=== PATIENT | female | born 1940 | race Caucasian/White ===

== ENCOUNTER 2016-04-11 18:41 | Emergency (ER) | payer MEDICARE, MEDICAID ==
[~2016-04-11] VITALS: Ht 165.1 cm; Wt 86.8 kg
[~2016-04-11 18:41] MED LIST: ASPI81TA82 PO; LEVO.1 PO; PARO10TA PO; PRAV10 PO; SOMA250T PO; XANA1TAB6 PO
[2016-04-11 18:44] VITALS: BP 182/86; PULSE 89; RESP 18; TEMP 98.2
[2016-04-11 18:48] VITALS: BP 182/86; PULSE 84; RESP 18; O2SAT 97
--- NOTE | 2016-04-11 18:49 | PD ---
HPI Chief Complaint: Abdominal Pain Time Seen by Provider: 18:49 Travel History International Travel<30 days: No Contact w/Intl Traveler<30days: No Traveled to known affect area: No History of Present Illness HPI 75-year-old female coming in via ambulance with severe right lower quadrant tenderness radiating from the back, and into the right leg. Patient states it's been progressively worsening over the past few weeks. She was seen in [facility], and told she "sprained a muscle". She states they did no CT scan or x-rays. Patient has had nausea and vomiting. She denies diarrhea or constipation. She denies chest pain or shortness of breath. Patient has a history of CHF and pacemaker defibrillator. She does have 1 skin lesion on the anterior right abdomen. She has no history of shingles in the past. She denies fever or chills. She denies urinary symptoms. She has had her appendix and gallbladder removed as well as ovaries. She states the pain is 10 over 10 and burning. She states nothing makes it better, and it seems worse when she moves. She is allergic to codeine. PFSH Past Medical History Heart Rhythm Problems: Yes Cardiac Catheterization: No Cardiovascular Problems: Yes (CHF, PACEMAKER) High Cholesterol: Yes Chest Pain: Yes Congestive Heart Failure: Yes (PT REPORTS) COPD: Yes Diabetes: No Hypertension: Yes Immunizations Current: Yes Thyroid Disease: Yes ?: Not Past Surgical History Body Medical Devices: PACER/DEFIBRILLATOR Coronary Artery Bypass Graft: No Hysterectomy: Yes Pacemaker: Yes (UNK) Social History Alcohol Use: No Tobacco Use: No Substance Use: No Allergies-Medications (Allergen,Severity, Reaction): Coded Allergies: Codeine (Unverified Allergy, Mild, 04/11/16) Toradol (Verified Allergy, Unknown, 04/11/16) Tramadol (Verified Allergy, Unknown, 04/11/16) Reported Meds & Prescriptions Reported Meds & Active Scripts Active Lortab (Hydrocodone-Acetaminophen) 5-325 Mg Tab 1-2 Tab PO Q6H PRN Gabapentin 100 Mg Cap 100 Mg PO TID Reported Pravastatin Sodium (Pravastatin Sod) 10 Mg Tab 1 Tab PO HS Paxil (Paroxetine HCl) 10 Mg Tab 10 PO DAILY Synthroid 100 mcg (Levothyroxine Sodium) 100 Mcg Tab 100 Mcg PO DAILY Soma (Carisoprodol) 250 Mg Tab 250 Mg PO BID Aspir-81 (Aspirin) 81 Mg Tab 81 Mg PO DAILY Xanax 1 mg (Alprazolam) Alprazolam 1 mg Tab 1 Tab PO Q6H PRN Review of Systems Except as stated in HPI: all other systems reviewed are Neg General / Constitutional: No: Fever Eyes: No: Visual changes HENT: No: Headaches Cardiovascular: No: Chest Pain or Discomfort Respiratory: No: Shortness of Breath Gastrointestinal: No: Abdominal Pain Genitourinary: No: Dysuria Musculoskeletal: No: Pain Skin: No Rash Neurologic: No: Weakness Psychiatric: No: Depression Endocrine: No: Polydipsia Hematologic/Lymphatic: No: Easy Bruising Physical Exam Narrative GENERAL: Patient appears in moderate distress. SKIN: Warm and dry. Normal color. Normal turgor. Patient has 1 circular lesion in the right lower anterior abdomen. No other rash or erythema. HEAD: Atraumatic. Normocephalic. EYES: Pupils equal and round. No scleral icterus. No injection or drainage. ENT: No nasal bleeding or discharge. Mucous membranes pink and moist. Pharynx is normal. NECK: Trachea midline. No JVD. CARDIOVASCULAR: Regular rate and rhythm. No murmurs gallops or rubs appreciated. RESPIRATORY: No accessory muscle use. Clear to auscultation. Breath sounds equal bilaterally. GASTROINTESTINAL: Abdomen soft, diffusely tender in the right lower quadrant, nondistended. No obvious point tenderness or rebound. Negative psoas sign. Hepatic and splenic margins not palpable. MUSCULOSKELETAL: Extremities without clubbing, cyanosis, or edema. No obvious deformities. Question straight leg raise pain on the right at 40. No weakness. No deformity. Patient has tenderness with palpation to the right lower flank along the pelvic rim. No bony tenderness appreciated. NEUROLOGICAL: Awake and alert. No obvious cranial nerve deficits. Motor grossly within normal limits. Five out of 5 muscle strength in the arms and legs. Normal speech. PSYCHIATRIC: Appropriate mood and affect; insight and judgment normal. Data Data Last Documented VS Vital Signs Date Time Temp Pulse Resp B/P Pulse Ox O2 Delivery O2 Flow Rate FiO2 04/11/16 21:11 88 18 193/88 97 Room Air 04/11/16 18:44 98.2 Orders Complete Blood Count With Diff (04/11/16 18:47) Comprehensive Metabolic Panel (04/11/16 18:47) Lactic Acid (04/11/16 18:47) Urinalysis - C+S If Indicated (04/11/16 18:47) Ct Abd/Pel W Iv Contrast(Rout) (04/11/16 18:47) Iv Access Insert/Monitor (04/11/16 18:47) Ecg Monitoring (04/11/16 18:47) Oximetry (04/11/16 18:47) NPO (04/11/16 18:47) Morphine Inj (Morphine Inj) (04/11/16 19:00) Sodium Chloride 0.9% Flush (Ns Flush) (04/11/16 19:00) Sodium Chlorid 0.9% 500 Ml Inj (Ns 500 M (04/11/16 19:00) Electrocardiogram (04/11/16 ) Oral Contrast - Adult (04/11/16 18:53) Diatrizoate Liq ( Gastroview Liq) (04/11/16 19:50) Diatrizoate Liq ( Gastroview Liq) (04/11/16 19:53) Hydromorphone Pf Inj (Dilaudid Pf Inj) (04/11/16 21:00) Iohexol 350 Inj (Omnipaque 350 Inj) (04/11/16 22:00) Labs Laboratory Tests Test 04/11/16 04/11/16 04/11/16 18:58 19:06 19:46 White Blood Count 9.7 TH/MM3 Red Blood Count 4.96 MIL/MM3 Hemoglobin 14.9 GM/DL Hematocrit 44.4 % Mean Corpuscular Volume 89.5 FL Mean Corpuscular Hemoglobin 30.0 PG Mean Corpuscular Hemoglobin 33.5 % Concent Red Cell Distribution Width 13.7 % Platelet Count 308 TH/MM3 Mean Platelet Volume 8.4 FL Neutrophils (%) (Auto) 51.7 % Lymphocytes (%) (Auto) 37.4 % Monocytes (%) (Auto) 7.1 % Eosinophils (%) (Auto) 3.1 % Basophils (%) (Auto) 0.7 % Neutrophils # (Auto) 5.0 TH/MM3 Lymphocytes # (Auto) 3.6 TH/MM3 Monocytes # (Auto) 0.7 TH/MM3 Eosinophils # (Auto) 0.3 TH/MM3 Basophils # (Auto) 0.1 TH/MM3 CBC Comment DIFF FINAL Differential Comment Sodium Level 139 MEQ/L Potassium Level 3.7 MEQ/L Chloride Level 103 MEQ/L Carbon Dioxide Level 28.2 MEQ/L Anion Gap 8 MEQ/L Blood Urea Nitrogen 13 MG/DL Creatinine 0.86 MG/DL Estimat Glomerular Filtration 64 ML/MIN Rate Random Glucose 81 MG/DL Calcium Level 8.7 MG/DL Total Bilirubin 0.3 MG/DL Aspartate Amino Transf 9 U/L (AST/SGOT) Alanine Aminotransferase 15 U/L (ALT/SGPT) Alkaline Phosphatase 78 U/L Total Protein 7.7 GM/DL Albumin 4.0 GM/DL Lactic Acid Level 0.5 mmol/L Urine Color LIGHT-YELLOW Urine Turbidity CLEAR Urine pH 5.5 Urine Specific [place] 1.007 Urine Protein NEG mg/dL Urine Glucose (UA) NEG mg/dL Urine Ketones NEG mg/dL Urine Occult Blood TRACE Urine Nitrite NEG Urine Bilirubin NEG Urine Urobilinogen LESS THAN 2.0 MG/DL Urine Leukocyte Esterase NEG Urine RBC 1 /hpf Urine WBC LESS THAN 1 /hpf Urine Squamous Epithelial <1 /hpf Cells Urine Mucus FEW /lpf Microscopic Urinalysis Comment CULT NOT INDICATED MDM Medical Decision Making Medical Screen Exam Complete: Yes Emergency Medical Condition: Yes Differential Diagnosis Right lower abdomen abdominal pain. Possible shingles. Possible postherpetic neuralgia. Possible sciatica. Possible urinary tract infection. Narrative Course Patient is uncomfortable medically stable at time of exam. Labs ordered including CBC, CMP, lactic acid, urinalysis. Patient is given 4 mg morphine IV as well as 500 mL normal saline bolus. EKG is ordered. Patient is made nothing by mouth and CT abdomen and pelvis ordered with oral and IV contrast. CBC is unremarkable. CMP is unremarkable. Lactic acid is normal. Urinalysis is unremarkable. 2049 hrs. patient is reevaluated states her pain is improved from a 10 to a 6.5. Patient is still awaiting CT of the abdomen and pelvis. Order for Dilaudid [address] is negative for acute process of the abdomen per radiologist. I feel the patient is suffering from postherpetic neuralgia from probable shingles. Patient will be started on gabapentin 100 mg 3 times a day. Patient is given Lortab 5/325 one to 2 tabs every 6 hours when necessary pain # 20. Patient should follow-up with her primary care physician to ensure improvement. Patient may return to emergency department if worsening symptoms develop as needed. Diagnosis Primary Impression: Right flank tenderness Additional Impression: Neuralgia, postherpetic Referrals: Primary Care Physician Patient Instructions: General Instructions, Shingles (ED) Additional Instructions: I feel the patient is suffering from postherpetic neuralgia from probable shingles. Patient will be started on gabapentin 100 mg 3 times a day. Patient is given Lortab 5/325 one to 2 tabs every 6 hours when necessary pain # 20. Patient should follow-up with her primary care physician to ensure improvement. Patient may return to emergency department if worsening symptoms develop as needed. Med/Other Pt SpecificInfo: Prescription(s) given Scripts Hydrocodone-Acetaminophen (Lortab)5-325 Mg Tab1-2 Tab PO Q6H PRN (PAIN) #20 TAB Ref 0 Prov:Miguelito Staton MD 04/11/16 Gabapentin 100 Mg [id number] Mg PO TID #90 CAP Ref 0 Prov:Miguelito Staton MD 04/11/16 Disposition: 01 DISCHARGE HOME Condition: Stable Jose Everett Apr 11, 2016 18:49
[2016-04-11 18:53] VITALS: O2SAT 99
[2016-04-11] MEDS ORDERED: SODIUM CHLORID 0.9% 500 ML INJ 500 ML IV ONE (19:00)
[2016-04-11] MEDS ORDERED: MORPHINE SULFATE 4 MG/ML INJ IV PUSH ONE (19:00)
[2016-04-11] MEDS ORDERED: SODIUM CHLORIDE 0.9% FLUSH 5 ML FLUSH IVF PRN (19:00)
[2016-04-11 19:44] LABS: BASOPHIL # 0.1 TH/MM3 (0-0.2); BASOPHIL % 0.7 % (0.0-2.0); EOSINOPHIL # 0.3 TH/MM3 (0-0.4); EOSINOPHIL % 3.1 % (0.0-4.0); HEMATOCRIT 44.4 % (35.0-46.0); HEMO FLAGS DIFF FINAL; LYMPH % 37.4 % (9.0-44.0); LYMPHOCYTE # 3.6 TH/MM3 (1.0-4.8); MEAN CELL VOLUME 89.5 FL (80.0-100.0); MEAN CORPUSCULAR HGB CONC 33.5 % (32.0-36.0); MONO % 7.1 % (0.0-8.0); NEUT % 51.7 % (16.0-70.0); PLATELET COUNT 308 TH/MM3 (150-450); RED BLOOD COUNT 4.96 MIL/MM3 (4.00-5.30); RED CELL DISTRIBUTION WIDTH 13.7 % (11.6-17.2); WHITE BLOOD COUNT 9.7 TH/MM3 (4.0-11.0)
[2016-04-11 19:47] LABS: ANION GAP 8 MEQ/L (5-15); AST (GOT) 9 U/L (15-37); BICARBONATE 28.2 MEQ/L (21.0-32.0); BLOOD UREA NITROGEN 13 MG/DL (7-18); CHLORIDE 103 MEQ/L (98-107); GLOMERULAR FILTRATION RATE 64 ML/MIN (>89); POTASSIUM 3.7 MEQ/L (3.5-5.1); SODIUM (NA) 139 MEQ/L (136-145)
[2016-04-11 19:50] LABS: ALKALINE PHOSPHATASE 78 U/L (45-117); ALT (GPT) 15 U/L (10-53); TOTAL BILIRUBIN ADULT 0.3 MG/DL (0.2-1.0)
[2016-04-11] MEDS ORDERED: DIATRIZOATE MEGLUM/DIATRIZOATE SOD 9 ML CUP ONE ×2 (19:50→19:53)
[2016-04-11 20:39] LABS: BLOOD, URINE TRACE (NEG); COMMENT (UR) CULT NOT INDICATED; CULTURE IF INDICATED CULT NOT INDICATED; GLUCOSE,URINE NEG (NEG); KETONE, URINE NEG (NEG); MUCUS URINE FEW /lpf (OCC); NITRITE,URINE NEG (NEG); PH, URINE 5.5 (5.0-8.5); SQUAMOUS EPITHELIAL CELL URINE <1 /hpf (0-5); URINE COLOR LIGHT-YELLOW (YELLW/STRAW)
[2016-04-11] MEDS ORDERED: HYDROmorphone HCL PF 1 MG/ML VIAL IV PUSH ONE (21:00)
[2016-04-11 21:11] VITALS: BP 193/88; PULSE 88; RESP 18; O2SAT 97
[2016-04-11] MEDS ORDERED: IOHEXOL 350 MG/ML 10 ML VIAL (for RAD DIAG) IV ONE (22:00)
--- NOTE | 2016-04-11 22:19 | RADRPT ---
EXAM DATE/TIME: 04/11/2016 21:52 [facility] COMPARISON: No previous studies available for comparison. INDICATIONS: Abdominal and right groin pain. IV CONTRAST: 100 cc Omnipaque 350 (iohexol) IV ORAL CONTRAST: Partial prescribed oral contrast ingested. RADIATION DOSE: 16.05 CTDIvol (mGy) MEDICAL HISTORY: Cardiovascular disease. Hypertension. SURGICAL HISTORY: Hysterectomy. ENCOUNTER: Initial ACUITY: 1 month PAIN SCALE: 4/10 LOCATION: Right lower quadrant TECHNIQUE: Volumetric scanning of the abdomen and pelvis was performed. Using automated exposure control and ad justment of the mA and/or kV according to patient size, radiation dose was kept as low as reasonably achievable to obtain optimal diagnostic quality images. FINDINGS: The liver, spleen, pancreas, adrenal glands and kidneys appear grossly normal. The ureters appear fr ee of stones. There is some scattered atherosclerotic calcifications seen throughout the arterial system. No aneur ysm is seen. The gallbladder is unremarkable. There are colonic diverticula in the sigmoid region. Significant associated inflammatory change is not seen. Pelvic structures appear grossly intact. The patient appears to be status post hysterectomy. The patient has a biventricular pacemaker in place. The lung bases are clear. There is degenerative change throughout the lumbar spine. CONCLUSION: 1. No acute abnormality seen. 2. Sigmoid colon diverticula. 3. Degenerative change in the lumbar spine. Slade Spencer MD on April 11, 2016 at 22:11 Board Certified Radiologist. This report was verified electronically.
[2016-04-11] MEDS ORDERED: HYDR-3533 PO (22:29)
[2016-04-11] MEDS ORDERED: GABA100C4 PO (22:29)
--- NOTE | 2016-04-12 15:56 | EKG ---
Date Performed: 04/11/2016 Time Performed: 19:16:41 PTAGE: 75 years EKG: ELECTRONIC VENTRICULAR PACEMAKE Compared to prior tracing no significant change ABNORMAL [facility] ECG PREVIOUS TRACING : 12/31/2015 10.54 DOCTOR: Hitesh Cronin Interpretating Date/Time 04/12/2016 15:54:21
== END 2016-04-11 22:47 | disposition home or self-care (01) ==
LOC: NEPE 18:41
DX: B02.29 Other postherpetic nervous system involvement (principal); I10 Essential (primary) hypertension; I50.9 Heart failure, unspecified
CPT/HCPCS: 74177; 80053; 81001; 83605; 85025; 93005; 96361; 96374; 96375; 99284; J1170; J2270; J7040; Q9963; Q9967

== ENCOUNTER 2016-04-25 17:43 | Emergency (ER) | payer MEDICARE, MEDICAID ==
[~2016-04-25 17:43] MED LIST changes: +GABA100C4 PO; +HYDR-3533 PO
[2016-04-25 17:50] VITALS: BP 135/84; PULSE 103; RESP 14; TEMP 97.9; O2SAT 97
== END 2016-04-25 19:40 | disposition left against medical advice (07) ==
LOC: NED 17:43
DX: R10.31 Right lower quadrant pain (principal)
CPT/HCPCS: 99281

== ENCOUNTER 2016-07-19 13:34 | Inpatient (IN) | payer MEDICARE ==
[~2016-07-19] VITALS: Ht 165.1 cm; Wt 83.2 kg
[2016-07-19 13:49] VITALS: BP 125/81; PULSE 112; RESP 18; TEMP 97.4; O2SAT 96
[2016-07-19] MEDS ORDERED: PRAV10TA PO (14:05)
[2016-07-19] MEDS ORDERED: PAXI10TA2 PO (14:05)
--- NOTE | 2016-07-19 14:28 | PD ---
HPI Chief Complaint: Pain: Acute or Chronic Time Seen by Provider: 14:28 Travel History International Travel<30 days: No Contact w/Intl Traveler<30days: No Traveled to known affect area: No History of Present Illness HPI 75-year-old female with PMH of CHF, HTN, HLD, pacer/defibrillator presents to the ED for evaluation of weeks long history of 10/10 right knee pain. She endorses fever "around 101," cough occasionally productive of yellow sputum and nausea and vomiting x 24 hours on presentation. She denies chest pain, shortness of breath, palpitations, abdominal pain, dysuria, back pain. Patient can identify no acute injury to the knee. She states that she was hospitalized at [facility] in June due to "a bad infection in my leg." She states that she was discharged from the hospital 06/21. She states that she was in a rehab for 1 day before signing out AMA. She states that since this time she has been unable to ambulate, sitting on her walker and using her leg to push herself around her house. She has not seen her primary care since discharge. PFSH Past Medical History Heart Rhythm Problems: Yes Cardiac Catheterization: No Cardiovascular Problems: Yes High Cholesterol: Yes Chest Pain: Yes Congestive Heart Failure: Yes COPD: Yes Diabetes: No Diminished Hearing: No Hypertension: Yes Immunizations Current: Yes Thyroid Disease: Yes Tetanus Vaccination: < 5 Years Influenza Vaccination: Yes : 7 Para: 7 Miscarriage: 0 : 0 Past Surgical History Body Medical Devices: PACER/DEFIBRILLATOR Coronary Artery Bypass Graft: No Hysterectomy: Yes Pacemaker: Yes (AICD PACER) Social History Alcohol Use: No Tobacco Use: No Substance Use: No Allergies-Medications (Allergen,Severity, Reaction): Coded Allergies: Codeine (Unverified Allergy, Mild, 07/19/16) Toradol (Verified Allergy, Unknown, 07/19/16) Tramadol (Verified Allergy, Unknown, 07/19/16) Reported Meds & Prescriptions Reported Meds & Active Scripts Active Reported Pravastatin 10 Mg Tab 10 Mg PO DAILY Paxil (Paroxetine HCl) 10 Mg Tab 10 Mg PO DAILY Review of Systems Except as stated in HPI: all other systems reviewed are Neg Physical Exam Narrative GENERAL: Well-nourished, well-developed obese white female in no acute distress. SKIN: Focused skin assessment warm/dry. HEAD: Normocephalic. EYES: No scleral icterus. No injection or drainage. NECK: Supple, trachea midline. No JVD or lymphadenopathy. CARDIOVASCULAR: Regular rate and rhythm without murmurs, gallops, or rubs. 2+ DP and radial pulses bilaterally. RESPIRATORY: Breath sounds clear and equal bilaterally. No accessory muscle use. GASTROINTESTINAL: Abdomen soft, non-tender, nondistended. No hepatosplenomegaly. No suprapubic tenderness. Active bowel sounds. MUSCULOSKELETAL: No cyanosis, or edema. FOCUSED RIGHT LOWER EXTREMITY EXAM: TTP of the right anterior knee and joint lines. No warmth, edema, erythema noted. ROM testing deferred 2/2 pain. Patient is able to flex and extend the ankle and toes. Sensation intact to light touch distally. Cap refill less than 2 seconds. BACK: Nontender without obvious deformity. No CVA tenderness. Data Data Last Documented VS Vital Signs Date Time Temp Pulse Resp B/P Pulse Ox O2 Delivery O2 Flow Rate FiO2 07/19/16 15:29 20 07/19/16 13:49 97.4 112 125/81 96 Orders Complete Blood Count With Diff (07/19/16 14:40) Comprehensive Metabolic Panel (07/19/16 14:40) Urinalysis - C+S If Indicated (07/19/16 14:40) Iv Access Insert/Monitor (07/19/16 14:40) Ecg Monitoring (07/19/16 14:40) Oximetry (07/19/16 14:40) Sodium Chlor 0.9% 1000 Ml Inj (Ns 1000 M (07/19/16 14:40) Sodium Chloride 0.9% Flush (Ns Flush) (07/19/16 14:45) Morphine Inj (Morphine Inj) (07/19/16 14:45) C-Reactive Protein (Crp) (07/19/16 14:40) Westergren Sedimentation Rate (07/19/16 14:40) Knee, Ltd (1 Or 2vws) (07/19/16 14:40) Ice/Cold Pack (07/19/16 14:40) Ondansetron Inj (Zofran Inj) (07/19/16 14:51) Urinary Catheter Insert/Apply (07/19/16 14:55) Ondansetron Inj (Zofran Inj) (07/19/16 15:30) Chest, Single Ap (07/19/16 ) Blood Culture (07/19/16 16:23) Vancomycin Inj (Vancomycin Inj) (07/19/16 16:23) Piperacil-Tazo 4.5 Gm Premix (Zosyn 4.5 (07/19/16 16:23) Sodium Chlor 0.9% 1000 Ml Inj (Ns 1000 M (07/19/16 16:30) Lactic Acid (07/19/16 16:27) Us Abdomen Gallbladder (07/19/16 16:55) Admit Order (Ed Use Only) (07/19/16 17:04) Labs Laboratory Tests Test 07/19/16 15:02 White Blood Count 12.7 TH/MM3 Red Blood Count 4.39 MIL/MM3 Hemoglobin 12.5 GM/DL Hematocrit 38.0 % Mean Corpuscular Volume 86.6 FL Mean Corpuscular Hemoglobin 28.5 PG Mean Corpuscular Hemoglobin 32.9 % Concent Red Cell Distribution Width 14.5 % Platelet Count 373 TH/MM3 Mean Platelet Volume 7.5 FL Neutrophils (%) (Auto) 75.5 % Lymphocytes (%) (Auto) 14.0 % Monocytes (%) (Auto) 8.5 % Eosinophils (%) (Auto) 1.4 % Basophils (%) (Auto) 0.6 % Neutrophils # (Auto) 9.6 TH/MM3 Lymphocytes # (Auto) 1.8 TH/MM3 Monocytes # (Auto) 1.1 TH/MM3 Eosinophils # (Auto) 0.2 TH/MM3 Basophils # (Auto) 0.1 TH/MM3 CBC Comment AUTO DIFF Differential Comment AUTO DIFF CONFIRMED Platelet Estimate NORMAL Platelet Morphology Comment NORMAL Erythrocyte Sedimentation Rate 14 mm/hr Urine Color DARK-YELLOW Urine Turbidity CLEAR Urine pH 6.0 Urine Specific [place] 1.021 Urine Protein 30 mg/dL Urine Glucose (UA) NEG mg/dL Urine Ketones NEG mg/dL Urine Occult Blood LARGE Urine Nitrite NEG Urine Bilirubin SMALL Urine Urobilinogen 4.0 MG/DL Urine Leukocyte Esterase NEG Urine RBC 6 /hpf Urine WBC 1 /hpf Urine Squamous Epithelial 2 /hpf Cells Urine Bacteria FEW /hpf Urine Mucus FEW /lpf Microscopic Urinalysis Comment CULT NOT INDICATED Sodium Level 133 MEQ/L Potassium Level 3.6 MEQ/L Chloride Level 94 MEQ/L Carbon Dioxide Level 30.5 MEQ/L Anion Gap 9 MEQ/L Blood Urea Nitrogen 13 MG/DL Creatinine 0.65 MG/DL Random Glucose 128 MG/DL Calcium Level 9.9 MG/DL Total Bilirubin 0.8 MG/DL Aspartate Amino Transf 60 U/L (AST/SGOT) Alanine Aminotransferase 59 U/L (ALT/SGPT) Alkaline Phosphatase 306 U/L C-Reactive Protein 30.30 MG/DL Total Protein 8.0 GM/DL Albumin 2.3 GM/DL [facility] Medical Decision Making Medical Screen Exam Complete: Yes Emergency Medical Condition: Yes Differential Diagnosis Osteoarthritis versus bursitis versus septic arthritis versus DVT versus UTI versus PNA versus cholecystitis versus cholangitis versus other Narrative Course 75-year-old female with PMH of CHF, HTN, HLD, pacer/defibrillator presents to the ED for evaluation of weeks long history of 10/10 right knee pain. She endorses fever "around 101" and nausea and vomiting on presentation. She denies chest pain, shortness of breath, abdominal pain, dysuria, back pain. Patient can identify no acute injury to the knee. She states that she was hospitalized at [facility] in June due to "a bad infection in my leg" and discharged 06/21. She states that she was in a rehab for 1 day before signing out AMA. She states that since this time she has been unable to ambulate, sitting on her walker and using her leg to push herself around her house. She has not followed up with her PCP Dr. Vicente. Vitals reviewed. Pulse 112 on presentation. Physical exam reveals a nontoxic appearing white female in no acute distress. Chest CTAB. No appreciable M/R/G. Right knee exquisitely TTP. No edema, erythema or warmth noted. ROM testing deferred 2/2 pain. Good distal pulses, neurovascularly intact. IV was established. Patient was administered 1 L normal saline bolus, 5 mg morphine, 4 mg Zofran IV. CBC: WBC 12.7 CMP: AST 60, ALT 59, Alk Phos 306. Review of patients record reveals no previous elevation. CRP: 30.30 ESR: 14 UA: No culture indicated Chest x-ray: pending RIGHT Knee x-ray: Severe OA. Small effusion without fracture per radiology read. On recheck patient reports improvement of N/V and knee pain. Records were requested from the outside hospital 2. Patient meets SIRS criteria. Blood cultures ordered. RUQ US, IV vancomycin and Zosyn and additional fluid bolus ordered. I spoke with Dr. Browning who agrees to accept the patient to the medicine service with Dr. Robledo. Please see medicine notes for disposition. Sepsis Criteria SIRS Criteria (2 or more): Heart rate over 90, WBC > 46326, < 4000 or > 10% bands Criteria Outcome: Meets SIRS criteria Marissa Chi July 19, 2016 14:28
[2016-07-19] MEDS ORDERED: SODIUM CHLOR 0.9% 1000 ML INJ 1,000 ML IV SCH (14:40)
[2016-07-19] MEDS ORDERED: SODIUM CHLORIDE 0.9% FLUSH 10 ML FLUSH IV FLUSH PRN ×2 (14:45→18:15)
[2016-07-19] MEDS ORDERED: MORPHINE SULFATE 8 MG/ML INJ IV PUSH ONE (14:45)
[2016-07-19] MEDS ORDERED: ONDANSETRON HCL 4 MG/2 ML VIAL ONE (14:51)
[2016-07-19 15:27] LABS: AUTOMATED NEUTROPHIL # 9.6 TH/MM3 (1.8-7.7); BASOPHIL # 0.1 TH/MM3 (0-0.2); BASOPHIL % 0.6 % (0.0-2.0); EOSINOPHIL # 0.2 TH/MM3 (0-0.4); EOSINOPHIL % 1.4 % (0.0-4.0); LYMPHOCYTE # 1.8 TH/MM3 (1.0-4.8); MEAN CELL VOLUME 86.6 FL (80.0-100.0); MEAN CORPUSCULAR HEMOGLOBIN 28.5 PG (27.0-34.0); MEAN CORPUSCULAR HGB CONC 32.9 % (32.0-36.0); MONO % 8.5 % (0.0-8.0); NEUT % 75.5 % (16.0-70.0); PLATELET COUNT 373 TH/MM3 (150-450); RED BLOOD COUNT 4.39 MIL/MM3 (4.00-5.30); RED CELL DISTRIBUTION WIDTH 14.5 % (11.6-17.2); WHITE BLOOD COUNT 12.7 TH/MM3 (4.0-11.0)
[2016-07-19 15:30] LABS: HEMO FLAGS AUTO DIFF
[2016-07-19] MEDS ORDERED: ONDANSETRON HCL 4 MG/2 ML VIAL IV PUSH ONE (15:30)
[2016-07-19 15:40] LABS: BACTERIA, URINE FEW /hpf; BLOOD, URINE LARGE (NEG); COMMENT (UR) CULT NOT INDICATED; CULTURE IF INDICATED CULT NOT INDICATED; GLUCOSE,URINE NEG (NEG); KETONE, URINE NEG (NEG); MUCUS URINE FEW /lpf (OCC); NITRITE,URINE NEG (NEG); SQUAMOUS EPITHELIAL CELL URINE 2 /hpf (0-5); URINE COLOR DARK-YELLOW (YELLW/STRAW)
[2016-07-19 15:46] LABS: ALT (GPT) 59 U/L (10-53); ANION GAP 9 MEQ/L (5-15); AST (GOT) 60 U/L (15-37); BICARBONATE 30.5 MEQ/L (21.0-32.0); BLOOD UREA NITROGEN 13 MG/DL (7-18); CHLORIDE 94 MEQ/L (98-107); POTASSIUM 3.6 MEQ/L (3.5-5.1); SODIUM (NA) 133 MEQ/L (136-145)
--- NOTE | 2016-07-19 15:52 | RADRPT ---
EXAM DATE/TIME: 07/19/2016 15:28 [facility] COMPARISON: No previous studies available for comparison. INDICATIONS : Right knee pain, cellulitis staph infection. MEDICAL HISTORY : Cardiovascular disease. Hypertension. SURGICAL HISTORY : None. ENCOUNTER: Subsequent ACUITY: 1 month PAIN SCORE: 10/10 LOCATION: Right knee. FINDINGS: Two view examination of the right knee demonstrates severe osteoarthritis. Small effusion. Soft tissu e swelling. Bony mineralization is normal. The suprapatellar soft tissues have a normal configurati on. CONCLUSION: Severe osteoarthritis. Small effusion without fracture. Demarcus Hanley MD on July 19, 2016 at 15:50 Board Certified Radiologist. This report was verified electronically.
[2016-07-19 15:53] LABS: ALKALINE PHOSPHATASE 306 U/L (45-117); TOTAL BILIRUBIN ADULT 0.8 MG/DL (0.2-1.0)
[2016-07-19 16:00] VITALS: BP 148/73; PULSE 100; RESP 20; O2SAT 98
[2016-07-19] MEDS ORDERED: PIPERACIL-TAZO 4.5 GM PREMIX 100 ML IV STA (16:23)
[2016-07-19] MEDS ORDERED: VANCOMYCIN INJ 1,000 MG in SODIUM CHLOR 0.9% 250 ML INJ 250 ML IV STA (16:23)
[2016-07-19 16:24] LABS: PLATELET ESTIMATE SMEAR NORMAL (NORMAL); PLATELET MORPHOLOGY NORMAL (NORMAL); SCAN/DIFF AUTO DIFF CONFIRMED
[2016-07-19] MEDS ORDERED: SODIUM CHLOR 0.9% 1000 ML INJ 1,000 ML IV ONE (16:30)
--- NOTE | 2016-07-19 17:00 | RADRPT ---
EXAM DATE/TIME: 07/19/2016 16:35 [facility] COMPARISON: CHEST SINGLE AP, December 31, 2015, 1:45. INDICATIONS : Chest and back pain after fall. MEDICAL HISTORY : Cardiovascular disease. Hypertension. SURGICAL HISTORY : Hysterectomy. Pacemaker. ENCOUNTER: Initial ACUITY: 1 day PAIN SCORE: 10/10 LOCATION: Bilateral chest FINDINGS: A single view of the chest demonstrates the lungs to be symmetrically aerated without evidence of mas s, infiltrate or effusion. The cardiomediastinal contours are unremarkable. Osseous structures are intact. CONCLUSION: No acute disease. AICD appear stable José Miguel Harris MD on July 19, 2016 at 16:57 Board Certified Radiologist. This report was verified electronically.
[2016-07-19] MEDS ORDERED: MORPHINE SULFATE 4 MG/ML INJ IV PUSH ONE (17:15)
--- NOTE | 2016-07-19 17:38 | RADRPT ---
EXAM DATE/TIME: 07/19/2016 17:11 [facility] COMPARISON: No previous studies available for comparison. INDICATIONS : Nausea/vomiting. Elevated labs. MEDICAL HISTORY : Congestive heart failure. Hypercholesterolemia. Thyroid disease. Chest pain. Irregular heartbeat. H TN. COPD. SURGICAL HISTORY : Pacemaker. Hysterectomy. Arthroscopic right knee. ENCOUNTER: Initial ACUITY: 1 month PAIN SCORE: 10/10 LOCATION: Right upper quadrant MEASUREMENTS: LIVER: 16.5 cm length COMMON DUCT: 4 mm RIGHT KIDNEY: 10.2 x 4.9 x 4.9 cm FINDINGS: The liver is echogenic without intrahepatic biliary ductal dilatation. Trace free fluid is present. Gallbladder is poorly seen. The common duct is normal. Pancreas obscured by bowel gas. CONCLUSION: Limited exam with trace free fluid. Echogenic liver. No definite gallstones. Carloz Kiser MD FACR on July 19, 2016 at 17:32 Board Certified Radiologist. This report was verified electronically.
[2016-07-19] MEDS ORDERED: NALOXONE HCL 0.4 MG/ML AMP IV PRN (18:15)
[2016-07-19] MEDS ORDERED: SENNOSIDES 8.6 MG TAB PO PRN (18:15)
[2016-07-19] MEDS ORDERED: MAGNESIUM HYDROXIDE SUSP 30 ML CUP PO PRN (18:15)
[2016-07-19] MEDS: SODIUM CHLOR 0.45% 1000 ML INJ 1,000 ML IV SCH (18:45)
[2016-07-19 18:58] VITALS: BP 140/72; PULSE 102; RESP 20; O2SAT 99
--- NOTE | 2016-07-19 18:58 | HHI.PR ---
Objective Objective Results - Vital Signs Date Time Temp Pulse Resp B/P Pulse Ox O2 Delivery O2 Flow Rate FiO2 07/19/16 17:34 20 07/19/16 15:29 20 07/19/16 13:49 97.4 112 18 125/81 96 Result Diagram: 07/19/16 1502 07/19/16 1502 A/P Assessment and Plan [id number]. Tita Esteban July 19, 2016 18:58
--- NOTE | 2016-07-19 19:50 | MH ---
cc: JOSAFAT ROBLEDO DATE OF ADMISSION 07/19/2016 DATE OF 1940 CHIEF COMPLAINT Abdominal pain, nausea and vomiting. Right knee pain. Travel in the last 30 days is none. HISTORY OF PRESENT ILLNESS This is a pleasant 75-year-old obese female with multiple medical comorbidities. She has had a long history of right knee pain and was recently in the [facility] with a possible infection in her right knee. According to the records the patient had her knee drained and there was no infection noted. She does have some mild edema noted around the knee cap, but the knee has no erythema but is sore to move. The patient has also had an onset of abdominal pain with nausea and vomiting for the past 48 hours. She states that she did have fever around 101. She has had some cough with some productive yellow sputum, a decreased appetite and has also been constipated. The patient states that she did have a good bowel movement within the past 24 hours and is now feeling somewhat better. She has no pain on palpation to the abdomen. She just describes it as a general ache. Currently the patient has a tachycardic rhythm, heart rate around 110. Temperature is 97.4. According to the record, the patient was admitted to a rehabilitation facility for debility but states that the workers had a bad attitude therefore, she stayed for one day and signed out against medical advice. The patient has not been ambulating in quite some time. She does use a wheelchair or a walker and push herself around the house. The patient is complaining of generalized aches and low back pain. PAST MEDICAL HISTORY Includes: 1. Heart disease. 2. Cardiovascular disease. 3. Coronary artery disease. 4. Hyperlipidemia. 5. Chest pain. 6. Congestive heart failure. 7. Chronic obstructive pulmonary disease. 8. Hypertension. 9. Osteoarthritis. 10. Thyroid disease. PAST SURGICAL HISTORY Surgical history: 1. Pacemaker, AICD. 2. Hysterectomy. 3. Recent drainage done of her right knee. ALLERGIES CODEINE, TORADOL AND TRAMADOL. SOCIAL HISTORY The patient currently lives with her daughter. She denies ever any alcohol, tobacco or illicit drug use. MEDICATIONS Reported medications: 1. Paxil. 2. Pravastatin. REVIEW OF SYSTEMS Limited due to patient's poor historian. Most of the history information is gathered from the record. The patient was able to give me symptom information such as generalized abdominal pain, nausea, vomiting, possible constipation, right knee pain, low back pain. Otherwise systems are negative or unremarkable. PHYSICAL EXAMINATION VITAL SIGNS: Temperature is 97.4, pulse 112, respiratory rate 20, blood pressure 125/81, O2 saturation 96%. The patient is on 2 liters nasal cannula. GENERAL: Obese, white female, looks to be her stated age, resting on the bed. She does have some facial grimace. Some generalized aches and pains predominantly complaining of her right knee pain. HEENT: Atraumatic, normocephalic. Pupils equal, round, reactive to light and accommodation at 2. Holmen mucous membranes. No scleral icterus. NECK: Supple. CARDIOVASCULAR: S1-S2. No murmurs, rubs, or gallops. She has no edema in her lower extremities. Her pulses are intact. LUNGS: She does have some diminished breath sounds in her lower lobes. Upper carbajal are essentially clear. No rhonchi. No wheezing. ABDOMEN: Round. Soft. Nontender to light palpation. She has active bowel sounds in all of her quadrants. But her abdomen is taut. Possible mild tympany palpated. MUSCULOSKELETAL: Moves her extremities with purpose. She does have generalized weakness. NEUROLOGIC: She is alert and oriented. A poor historian to current situation and time events but she can answer simple symptom management. Her speech is clear. 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 Tongue is midline. PSYCHIATRIC: Increased anxiety secondary to her pain. Appropriate mood, plus the anxiety. LABORATORY DATA Diagnostic data, white blood cell count is 12.7, RBC 4.39, hemoglobin 12.5, hematocrit 38, platelet count 373. Neutrophil percentage auto 75.5, monocyte 8.5. Sodium 133, potassium 3.6, chloride 94, carbon dioxide 30.5, anion gap 9, BUN 13, creatinine 0.65. Random glucose 128. Lactic acid 10. Calcium 9.9. AST 60, ALT 59, alkaline phosphatase 306. C reactive protein 30.3. Total protein 8. Albumin 2.3. Urine is dark yellow, clear. PH is 6.0, specific gravity 1.021, 30 protein, large amount of occult blood. Nitrites are negative. Small amount of bilirubin. Urobilinogen si 4. Leukocyte esterase is negative. Negative glucose or ketones or leukocyte esterase. Culture is not indicated. IMAGING Imaging studies show a chest x-ray to have no acute disease. AICD appears stable. Knee x-ray severe osteoarthritis with small effusion without fracture. Ultrasound of the gallbladder limited examination with trace of free fluid, echogenic liver. No definite gallstones. ASSESSMENT AND PLAN 1. Leukocytosis secondary to unknown cause. 2. Severe osteoarthritis with small effusion of the right knee. 3. Tachycardia. 4. Hyponatremia. 5. Fever, unknown origin. 6. Abdominal pain with nausea and vomiting, rule out cholangitis or cholecystitis. 7. Constipation. 8. Rule out inflammatory response, unknown cause. Currently we will admit the patient to inpatient. Further vital signs q.4h. Maintain her on bed rest. Out of bed only with assistance. General hydration with IV fluids. Deep venous thrombosis prophylaxis with heparin. The patient received Zosyn and vancomycin in the emergency room. We will start her on IV Unasyn. Ultrasound of the abdomen has been obtained. General surgery consultation for his expert opinion. The patient is complaining of pain in her right knee, uncontrolled. We will give her IV pain medications. Sequential compression devices if she can tolerate around her knee. Blood cultures are pending. We will draw a sedimentation rate on this patient in the morning and labs in the morning and re-evaluate her needs. The case has been discussed with Dr. Browning. Admission for Dr. Robledo. We will follow. Dictated by: AUDREY Reynolds Josafat Robledo MD JP/JOSE /6:44 PM /7:07 PM PT EVALUATION WAS DONE ABOVE CHART WAS REVIEWED DW PT DW RN JOHN
[2016-07-19] MEDS: HEPARIN SODIUM - SQ 10,000 UNITS/ML VIAL SQ SCH (20:10)
[2016-07-19] MEDS: HYDROmorphone HCL PF 1 MG/ML VIAL IV PRN ×2 (20:11→23:43)
[2016-07-19] MEDS: ACETAMINOPHEN 325 MG TAB PO PRN (21:34)
[2016-07-19 21:35] VITALS: BP 126/72; PULSE 101; RESP 18; TEMP 97.2; O2SAT 96
[2016-07-19] MEDS: AMPICILLIN-SULBACTAM INJ 1,500 MG in SODIUM CHLORIDE 0.9% INJ 100 ML IV SCH (23:42)
[2016-07-20 00:23] VITALS: BP 128/71; PULSE 95; RESP 17; TEMP 96.9; O2SAT 98
[2016-07-20] MEDS: AMPICILLIN-SULBACTAM INJ 1,500 MG in SODIUM CHLORIDE 0.9% INJ 100 ML IV SCH ×4 (03:59→22:44)
[2016-07-20 04:32] LABS: ANION GAP 9 MEQ/L (5-15); BICARBONATE 25.9 MEQ/L (21.0-32.0); BLOOD UREA NITROGEN 10 MG/DL (7-18); CHLORIDE 101 MEQ/L (98-107); GLOMERULAR FILTRATION RATE 117 ML/MIN (>89); POTASSIUM 3.7 MEQ/L (3.5-5.1); SODIUM (NA) 136 MEQ/L (136-145)
[2016-07-20 04:45] LABS: AUTOMATED NEUTROPHIL # 7.4 TH/MM3 (1.8-7.7); BASOPHIL # 0.1 TH/MM3 (0-0.2); BASOPHIL % 0.8 % (0.0-2.0); EOSINOPHIL # 0.7 TH/MM3 (0-0.4); EOSINOPHIL % 5.6 % (0.0-4.0); HEMATOCRIT 35.2 % (35.0-46.0); LYMPH % 23.5 % (9.0-44.0); LYMPHOCYTE # 2.8 TH/MM3 (1.0-4.8); MEAN CELL VOLUME 87.8 FL (80.0-100.0); MEAN CORPUSCULAR HGB CONC 31.9 % (32.0-36.0); MONO % 7.3 % (0.0-8.0); NEUT % 62.8 % (16.0-70.0); PLATELET COUNT 313 TH/MM3 (150-450); RED CELL DISTRIBUTION WIDTH 14.6 % (11.6-17.2); WHITE BLOOD COUNT 11.8 TH/MM3 (4.0-11.0)
[2016-07-20 04:46] LABS: HEMO FLAGS AUTO DIFF
[2016-07-20] MEDS: HYDROmorphone HCL PF 1 MG/ML VIAL IV PRN ×5 (05:41→22:44)
[2016-07-20 06:01] LABS: PLATELET ESTIMATE SMEAR NORMAL (NORMAL); PLATELET MORPHOLOGY NORMAL (NORMAL); SCAN/DIFF AUTO DIFF CONFIRMED
[2016-07-20 08:00] VITALS: BP 142/77; PULSE 107; RESP 17; TEMP 97.2; O2SAT 95
[2016-07-20 09:53] LABS: ALKALINE PHOSPHATASE 254 U/L (45-117); ALT (GPT) 49 U/L (10-53); AST (GOT) 45 U/L (15-37); TOTAL BILIRUBIN ADULT 0.6 MG/DL (0.2-1.0)
[2016-07-20] MEDS: SODIUM CHLOR 0.45% 1000 ML INJ 1,000 ML IV SCH ×2 (09:54→22:45)
[2016-07-20] MEDS: HEPARIN SODIUM - SQ 10,000 UNITS/ML VIAL SQ SCH ×2 (09:55→20:43)
--- NOTE | 2016-07-20 10:38 | HHI.PR ---
Subjective Subjective Notes C/o abdominal pain Thirsty Objective Vitals/I&O Vital Signs Date Time Temp Pulse Resp B/P Pulse Ox O2 Delivery O2 Flow Rate FiO2 07/20/16 08:00 97.2 107 17 142/77 95 07/19/16 18:58 Nasal Cannula 2 Labs Laboratory Tests Test 07/19/16 07/19/16 07/20/16 15:02 17:00 04:00 White Blood Count 12.7 11.8 Red Blood Count 4.39 4.00 Hemoglobin 12.5 11.2 Hematocrit 38.0 35.2 Mean Corpuscular Volume 86.6 87.8 Mean Corpuscular Hemoglobin 28.5 28.0 Mean Corpuscular Hemoglobin 32.9 31.9 Concent Red Cell Distribution Width 14.5 14.6 Platelet Count 373 313 Mean Platelet Volume 7.5 7.5 Neutrophils (%) (Auto) 75.5 62.8 Lymphocytes (%) (Auto) 14.0 23.5 Monocytes (%) (Auto) 8.5 7.3 Eosinophils (%) (Auto) 1.4 5.6 Basophils (%) (Auto) 0.6 0.8 Neutrophils # (Auto) 9.6 7.4 Lymphocytes # (Auto) 1.8 2.8 Monocytes # (Auto) 1.1 0.9 Eosinophils # (Auto) 0.2 0.7 Basophils # (Auto) 0.1 0.1 CBC Comment AUTO DIFF AUTO DIFF Differential Comment AUTO DIFF AUTO DIFF CONFIRMED CONFIRMED Platelet Estimate NORMAL NORMAL Platelet Morphology Comment NORMAL NORMAL Erythrocyte Sedimentation Rate 14 Urine Color DARK-YELLOW Urine Turbidity CLEAR Urine pH 6.0 Urine Specific [place] 1.021 Urine Protein 30 Urine Glucose (UA) NEG Urine Ketones NEG Urine Occult Blood LARGE Urine Nitrite NEG Urine Bilirubin SMALL Urine Urobilinogen 4.0 Urine Leukocyte Esterase NEG Urine RBC 6 Urine WBC 1 Urine Squamous Epithelial 2 Cells Urine Bacteria FEW Urine Mucus FEW Microscopic Urinalysis Comment CULT NOT INDICATED Sodium Level 133 136 Potassium Level 3.6 3.7 Chloride Level 94 101 Carbon Dioxide Level 30.5 25.9 Anion Gap 9 9 Blood Urea Nitrogen 13 10 Creatinine 0.65 0.51 Random Glucose 128 93 Calcium Level 9.9 9.0 Total Bilirubin 0.8 0.6 Aspartate Amino Transf 60 45 (AST/SGOT) Alanine Aminotransferase 59 49 (ALT/SGPT) Alkaline Phosphatase 306 254 C-Reactive Protein 30.30 Total Protein 8.0 7.0 Albumin 2.3 1.8 Lactic Acid Level 1.0 Estimat Glomerular Filtration 117 Rate Date/Time Procedure Status Source Growth 07/19/16 17:00 Aerobic Blood Culture Received Blood Line Pending 07/19/16 17:00 Anaerobic Blood Culture Received Blood Line Pending Cardiovascular: Regular Lungs: Clear Abdomen: Other (RUQ pain with palpation; abdomen soft ) Extremities: No edema A/P Assessment and Plan 75 year old female with acute cholecystitis -Obtain Cardiology clearance for surgery -Clear liquids -Antibiotics -Will plan timing of surgery after Cardiology evaluation Attending Statement patient seen at bedside cardio clearance for possible surgery vs callie tube Attestation The exam, history, and the medical decision-making described in the above note were completed with the assistance of the mid-level provider. I reviewed and agree with the findings presented. I attest that I had a [id number] encounter with the patient on the same day, and personally performed and documented my assessment and findings in the medical record. Cecily Dietz July 20, 2016 10:38 Sherif Mancuso MD July 31, 2016 22:04
--- NOTE | 2016-07-20 11:58 | MB ---
cc: CODIE HOLBROOK MD DATE OF CONSULTATION 07/19/2016 REASON FOR CONSULTATION Acute cholecystitis HISTORY OF PRESENT ILLNESS The patient is a 75-year-old female who presents with multiple medical co-morbidities. Actually presented initially with right knee pain and a history of aspiration of her right knee at [facility]. She complains of significant pain at multiple other places in the body one of which significantly in her right upper quadrant. She states the pain is of acute onset occurring in the last two days. She also had associated multiple episodes of nausea and vomiting. She states she had a fever T-max of 101 and describes the pain as sharp, somewhat diffuse, better with lying still, worse with movement, worse with palpation. She came to the emergency department for further evaluation including gallbladder ultrasound showing trace gallbladder fluid no definitive stones. She did have elevated total bilirubin of 0.8, AST 60, ALT of 59 and alkaline phosphatase of 306. Surgery was consulted for further evaluation. On my exam, the patient states she does have pain somewhat all over including her knee, but complains of more significant pain in her right upper quadrant again of acute onset of 48 hours duration. She never had pain quite like this before. She states the pain has been persistent and continues to get worse. She does have some improvement with pain medications. She complains of fevers and chills which have improved. PAST MEDICAL HISTORY 1. Coronary artery disease 2. Hyperlipidemia 3. CHF 4. COPD 5. Hypertension 6. Osteoarthritis 7. Thyroid disease PAST SURGICAL HISTORY 1. Pacer 2. AICD 3. Hysterectomy 4. Aspiration of knee on the right ALLERGIES CODEINE, TORADOL AND TRAMADOL. SOCIAL HISTORY Denies smoking, EtOH or IVDA. Lives with daughter. MEDICATIONS 1. Paxil 2. Pravastatin FAMILY HISTORY Denies hypertension or diabetes in parents. REVIEW OF SYSTEMS GENERAL: Complains of fever. Denies headache. HEENT: Denies eye pain, ear pain. NECK: Denies swelling of pain. HEART: Denies palpitations or chest pain. RESPIRATORY: Denies cough or wheeze. ABDOMEN: Complained of nausea, vomiting and abdominal pain. EXTREMITIES: Complained of arthralgia and myalgias especially right lower extremity. : Denies dysuria or hematuria. INTEGUMENT: No obvious masses or lesions. PSYCH: Denies change in mood or sensorium. ENDOCRINE: Denies polyuria or polydipsia. PHYSICAL EXAMINATION GENERAL: The patient is in acute distress. VITAL SIGNS: Temperature 97.4, pulse 112, respiration 20, blood pressure 125/81, saturation 96%. HEENT: PERRLA, atraumatic, normocephalic. Pupils equal, round, reactive. NECK: Supple. Trachea midline. LUNGS: Clear to auscultation, bilateral expansion. No wheeze. HEART: S1-S2 regular rhythm. ABDOMEN: Soft, positive tenderness to palpation right upper quadrant. No rebound. EXTREMITIES: Positive tenderness to palpation in the right lower extremity. Decreased movement due to pain. NEUROLOGIC: GCS of 15, 5/5 motor all other extremities other than right lower. PSYCHIATRY: Anxiety, appropriate mood. LABORATORY AND DIAGNOSTIC DATA WBC 12.7, hemoglobin 12.5, hematocrit 38, platelets 373. Sodium 133, potassium 2.6, chloride 94, BUN 13, creatinine 0.65, glucose 128, calcium 9.9, AST 60, ALT 59, T-bili 0.8, alkaline phosphatase 306, albumin 2.3. Ultrasound reviewed by myself, common duct is 4 mm, gallbladder poorly visualized. ASSESSMENT The patient is 75-year-old female with multiple medical issues who presents with right knee pain and right upper quadrant abdominal pain. Patient with mild transaminitis and increased alkaline phosphatase. PLAN A full clinical radiologic and laboratory workup of the patient with the above-named issues including what appears to be possible symptomatic acalculous cholelithiasis. The patient might warrant operative intervention including laparoscopic cholecystectomy, however, we will obtain routine consultation for possible clearance. The patient may also benefit from a cholecystostomy tube. We will obtain a HIDA scan to further define her cholecystitis as her gallbladder ultrasound shows poor penetration. Thank you for the consultation. MD MIGUEL A Pelaez/ALON /11:15 AM /11:34 AM
[2016-07-20 12:00] VITALS: BP 126/77; PULSE 114; RESP 19; TEMP 97; O2SAT 96
--- NOTE | 2016-07-20 13:26 | HHI.PR ---
Subjective Remarks Vision seen and examined Has pain in her abdomen right upper quadrant and also has severe pain in her knee. Pain medication is not helping for her knee pain. No other complaint. Ex line breathing better no chest pain no diaphoresis. No palpitations. Review of system for 12 point system otherwise unremarkable Objective Objective Results - Vital Signs Date Time Temp Pulse Resp B/P Pulse Ox O2 Delivery O2 Flow Rate FiO2 07/20/16 12:00 97.0 114 19 126/77 96 07/20/16 08:00 97.2 107 17 142/77 95 07/20/16 00:23 96.9 95 17 128/71 98 07/19/16 21:35 97.2 101 18 126/72 96 07/19/16 18:58 102 20 140/72 99 Nasal Cannula 2 07/19/16 17:34 20 07/19/16 16:00 100 20 148/73 98 Nasal Cannula 2 07/19/16 15:29 20 07/19/16 13:49 97.4 112 18 125/81 96 I/O 07/19/16 07/19/16 07/19/16 07/20/16 07/20/16 07/20/16 07:00 15:00 23:00 07:00 15:00 23:00 Intake Total 500 ml 120 ml Output Total 800 ml 400 ml Balance -800 ml 100 ml 120 ml Intake Oral 120 ml IV Total 500 ml Output Urine Total 800 ml 400 ml # Bowel Movements 1 Result Diagram: 07/20/16 0400 07/20/16 0400 Other Results Laboratory Tests Test 07/19/16 07/19/16 07/20/16 15:02 17:00 04:00 White Blood Count 12.7 11.8 Red Blood Count 4.39 4.00 Hemoglobin 12.5 11.2 Hematocrit 38.0 35.2 Mean Corpuscular Volume 86.6 87.8 Mean Corpuscular Hemoglobin 28.5 28.0 Mean Corpuscular Hemoglobin 32.9 31.9 Concent Red Cell Distribution Width 14.5 14.6 Platelet Count 373 313 Mean Platelet Volume 7.5 7.5 Neutrophils (%) (Auto) 75.5 62.8 Lymphocytes (%) (Auto) 14.0 23.5 Monocytes (%) (Auto) 8.5 7.3 Eosinophils (%) (Auto) 1.4 5.6 Basophils (%) (Auto) 0.6 0.8 Neutrophils # (Auto) 9.6 7.4 Lymphocytes # (Auto) 1.8 2.8 Monocytes # (Auto) 1.1 0.9 Eosinophils # (Auto) 0.2 0.7 Basophils # (Auto) 0.1 0.1 CBC Comment AUTO DIFF AUTO DIFF Differential Comment AUTO DIFF AUTO DIFF CONFIRMED CONFIRMED Platelet Estimate NORMAL NORMAL Platelet Morphology Comment NORMAL NORMAL Erythrocyte Sedimentation Rate 14 Urine Color DARK-YELLOW Urine Turbidity CLEAR Urine pH 6.0 Urine Specific [place] 1.021 Urine Protein 30 Urine Glucose (UA) NEG Urine Ketones NEG Urine Occult Blood LARGE Urine Nitrite NEG Urine Bilirubin SMALL Urine Urobilinogen 4.0 Urine Leukocyte Esterase NEG Urine RBC 6 Urine WBC 1 Urine Squamous Epithelial 2 Cells Urine Bacteria FEW Urine Mucus FEW Microscopic Urinalysis Comment CULT NOT INDICATED Sodium Level 133 136 Potassium Level 3.6 3.7 Chloride Level 94 101 Carbon Dioxide Level 30.5 25.9 Anion Gap 9 9 Blood Urea Nitrogen 13 10 Creatinine 0.65 0.51 Random Glucose 128 93 Calcium Level 9.9 9.0 Total Bilirubin 0.8 0.6 Aspartate Amino Transf 60 45 (AST/SGOT) Alanine Aminotransferase 59 49 (ALT/SGPT) Alkaline Phosphatase 306 254 C-Reactive Protein 30.30 Total Protein 8.0 7.0 Albumin 2.3 1.8 Lactic Acid Level 1.0 Estimat Glomerular Filtration 117 Rate Date/Time Procedure Status Source Growth 07/19/16 17:00 Aerobic Blood Culture - Preliminary Resulted Blood Line NO GROWTH IN 1 DAY 07/19/16 17:00 Anaerobic Blood Culture - Preliminary Resulted Blood Line NO GROWTH IN 1 DAY Physical Exam Physical Exam VITAL SIGNS: Reviewed HEENT: Atraumatic, normocephalic. Pupils equal, round, reactive to light and accommodation at 2. [place] mucous membranes. No scleral icterus. NECK: Supple. Central trachea CARDIOVASCULAR: S1-S2. No murmurs, rubs, or gallops. She has no edema in her lower extremities. Her pulses are intact. LUNGS: She does have some diminished breath sounds in her lower lobes. Upper carbajal are essentially clear. No rhonchi. No wheezing. ABDOMEN: Round. Soft. Mildly tender in the right upper quadrant no rebound no guarding or rigidity positive bowel sounds. MUSCULOSKELETAL: Moves her extremities with purpose. She does have generalized weakness. NEUROLOGIC: She is alert and oriented. A poor historian to current situation and time events but she can answer simple symptom management. Her speech is clear. 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 Tongue is midline. PSYCHIATRIC: Increased anxiety secondary to her pain. Appropriate mood, plus the anxiety. A/P Assessment and Plan 1. Leukocytosis secondary to unknown cause. 2. Severe osteoarthritis with small effusion of the right knee. 3. Tachycardia. 4. Hyponatremia on admission 5. Fever, unknown origin. At home 6. Abdominal pain with nausea and vomiting, rule out cholangitis or cholecystitis. 7. Constipation. 8. Rule out inflammatory response, unknown cause. Labs reviewed Improving WBC count Slight anemia will monitor And sodium level Improving LFTs Hypoalbuminemia Radiological data reviewed Notes reviewed Continue antibiotics Appreciate surgical input Awaiting cardiology input For possible surgery soon Analgesics when necessary for pain in abdomen and knee joint. IV hydration SCD for DVT prophylaxis PPI for GI prophylaxis Discussed with patient Antwan Robledo MD July 20, 2016 13:26
[2016-07-20 16:00] VITALS: BP 146/72; PULSE 105; RESP 20; TEMP 97.1; O2SAT 95
--- NOTE | 2016-07-20 16:46 | MB ---
cc: CHUYITA WAGNER M.D. DATE OF CONSULTATION: 07/20/2016. HISTORY OF PRESENT ILLNESS: Nasrin is a very pleasant 75-year-old lady admitted on 07/19/2016. She has no local pilot. She presented with an acute complaint of right knee pain and fever. Currently she denies any chest pain, GI or bleeding, paroxysmal nocturnal dyspnea, orthopnea, syncope or dizziness or shortness of breath. Positive for abdominal pain, nausea and vomiting. PAST MEDICAL HISTORY: Her past medical history includes 1. Congestive heart failure. 2. Hypertension. 3. Hyperlipidemia. 4. Pacemaker. 5. Defibrillator. 6. Coronary artery disease. 7. Hyperlipidemia. 8. COPD. 9. Hysterectomy. ALLERGIES: 1. CODEINE. 2. TORADOL. 3. TRAMADOL. SOCIAL HISTORY: Denies tobacco or alcohol use. MEDICATIONS PRIOR TO ADMISSION: 1. Paxil. 2. Pravastatin. LABORATORY DATA: White count 7.7, hemoglobin 11.2, hematocrit 35.2, platelet count is 313,000. Sodium 133, potassium 3.6, chloride 94, bicarbonate 30.5, BUN 13, creatinine 0.65, glucose 128, AST 50, ALT 59. C-reactive protein . Albumin 1.8. Blood cultures from 07/19/2016 are negative x1 day. IMAGING STUDIES: Chest x-ray: No acute disease. The AICD appears stable. Knee x-ray: Severe osteoarthritis. Gallbladder ultrasound: Limited exam. There appears to be free fluid and echogenic gallstones. EKGS: EKG is not available. DIAGNOSES: She has the following diagnoses: 1. Coronary artery disease. 2. Cardiomyopathy. 3. Congestive heart failure. 4. Status post ICD. 5. Elevated white count. 6. Anemia. 7. Hyponatremia. 8. Hyperglycemia. 9. Elevated liver enzymes. 10. Low albumin. 11. Low oncotic pressure. 12. COPD. 13. Hyperlipidemia. DISCUSSION: At this point in time, the patient appears to be euvolemic on exam and by history and by chest x-ray. She is asymptomatic from the cardiovascular standpoint. The only issue is that given her severe osteoarthritis and the knee pain, it is difficult to determine her functional capacity. Should she need noncardiac surgery, she would be probably at least moderate to high risk without being able to assess her functional capacity. Otherwise, would recommend starting a baby aspirin 81 milligrams a day if she is not going to have surgery. Continue Pravastatin. I will continue to follow her. MD ANIRUDH Yarbrough/SHARLENE /3:54 PM /4:32 PM
[2016-07-20 20:00] VITALS: BP 122/61; PULSE 86; RESP 18; TEMP 97; O2SAT 93
[2016-07-21] VITALS (8 sets, daily range): BP systolic 122–159; BP diastolic 63–97; PULSE 86–111; RESP 17–20; TEMP 96.1–99; O2SAT 95–98
[2016-07-21] MEDS: HYDROmorphone HCL PF 1 MG/ML VIAL IV PRN ×4 (02:40→22:57)
[2016-07-21] MEDS: AMPICILLIN-SULBACTAM INJ 1,500 MG in SODIUM CHLORIDE 0.9% INJ 100 ML IV SCH ×4 (04:26→22:57)
[2016-07-21 05:10] LABS: HEMATOCRIT 32.7 % (35.0-46.0); MEAN CORPUSCULAR HGB CONC 32.1 % (32.0-36.0); PLATELET COUNT 341 TH/MM3 (150-450); RED BLOOD COUNT 3.75 MIL/MM3 (4.00-5.30); RED CELL DISTRIBUTION WIDTH 14.6 % (11.6-17.2); REVIEW FLAG FINAL; WHITE BLOOD COUNT 10.4 TH/MM3 (4.0-11.0)
[2016-07-21 05:33] LABS: INDIRECT BILIRUBIN 0.2 MG/DL (0.0-0.8); TOTAL BILIRUBIN ADULT 0.4 MG/DL (0.2-1.0)
[2016-07-21] MEDS: HEPARIN SODIUM - SQ 10,000 UNITS/ML VIAL SQ SCH ×2 (08:12→20:10)
[2016-07-21] MEDS: SODIUM CHLOR 0.45% 1000 ML INJ 1,000 ML IV SCH (08:15)
--- NOTE | 2016-07-21 10:44 | PD.CARD.PN ---
Subjective Subjective Remarks alert in nad Objective Vital Signs / I&O Vital Signs Date Time Temp Pulse Resp B/P Pulse Ox O2 Delivery O2 Flow Rate FiO2 07/21/16 08:00 99.0 99 17 122/63 95 07/21/16 00:00 96.9 109 18 123/70 95 07/20/16 20:00 97.0 86 18 122/61 93 07/20/16 16:00 97.1 105 20 146/72 95 07/20/16 12:00 97.0 114 19 126/77 96 I/O 07/20/16 07/20/16 07/20/16 07/21/16 07/21/16 07/21/16 07:00 15:00 23:00 07:00 15:00 23:00 Intake Total 500 ml 1198 ml 429 ml 814 ml 120 ml Output Total 400 ml 800 ml 500 ml 800 ml Balance 100 ml 398 ml -71 ml 14 ml 120 ml Intake Oral 600 ml 120 ml 120 ml 120 ml IV Total 500 ml 598 ml 309 ml 694 ml Output Urine Total 400 ml 800 ml 500 ml 800 ml # Bowel Movements 1 0 0 0 Laboratory GENERAL: SKIN: Warm and dry. HEAD: Normocephalic. EYES: No scleral icterus. No injection or drainage. NECK: Supple, trachea midline. No JVD or lymphadenopathy. CARDIOVASCULAR: Regular rate and rhythm without murmurs, gallops, or rubs. RESPIRATORY: Breath sounds equal bilaterally. No accessory muscle use. GASTROINTESTINAL: Abdomen soft, non-tender, nondistended. MUSCULOSKELETAL: No cyanosis, or edema. BACK: Nontender without obvious deformity. No CVA tenderness. Laboratory Tests Test 07/21/16 03:59 White Blood Count 10.4 TH/MM3 Red Blood Count 3.75 MIL/MM3 Hemoglobin 10.5 GM/DL Hematocrit 32.7 % Mean Corpuscular Volume 87.0 FL Mean Corpuscular Hemoglobin 28.0 PG Mean Corpuscular Hemoglobin 32.1 % Concent Red Cell Distribution Width 14.6 % Platelet Count 341 TH/MM3 Mean Platelet Volume 7.6 FL Total Bilirubin 0.4 MG/DL Direct Bilirubin 0.2 MG/DL Indirect Bilirubin 0.2 MG/DL Aspartate Amino Transf 63 U/L (AST/SGOT) Alanine Aminotransferase 50 U/L (ALT/SGPT) Alkaline Phosphatase 242 U/L Total Protein 6.6 GM/DL Albumin 1.9 GM/DL Assessment and Plan Problem List: (1) Pacemaker (2) CAD (coronary artery disease) Assessment and Plan 1.) CAD - aspirin held due to possible surgery, assymptomatic Rafi Mcadams MD July 21, 2016 10:44
[2016-07-21] MEDS ORDERED: Vancomycin Consult Pharmacy 1 EA OTHER SCH (10:45)
[2016-07-21] MEDS ORDERED: VANCOMYCIN INJ 1,000 MG in SODIUM CHLOR 0.9% 250 ML INJ 250 ML IV ONE (10:45)
--- NOTE | 2016-07-21 10:55 | HHI.PR ---
Subjective Subjective Notes Both knee and abdomen are hurting Getting ready to go to HIDA scan Objective Vitals/I&O Vital Signs Date Time Temp Pulse Resp B/P Pulse Ox O2 Delivery O2 Flow Rate FiO2 07/21/16 08:00 99.0 99 17 122/63 95 07/19/16 18:58 Nasal Cannula 2 Labs Laboratory Tests Test 07/21/16 03:59 White Blood Count 10.4 Red Blood Count 3.75 Hemoglobin 10.5 Hematocrit 32.7 Mean Corpuscular Volume 87.0 Mean Corpuscular Hemoglobin 28.0 Mean Corpuscular Hemoglobin 32.1 Concent Red Cell Distribution Width 14.6 Platelet Count 341 Mean Platelet Volume 7.6 Total Bilirubin 0.4 Direct Bilirubin 0.2 Indirect Bilirubin 0.2 Aspartate Amino Transf 63 (AST/SGOT) Alanine Aminotransferase 50 (ALT/SGPT) Alkaline Phosphatase 242 Total Protein 6.6 Albumin 1.9 Date/Time Procedure Status Source Growth 07/19/16 17:00 Aerobic Blood Culture - Preliminary Resulted Blood Line Gram Positive Cocci 07/19/16 17:00 Anaerobic Blood Culture - Preliminary Resulted Blood Line NO GROWTH IN 1 DAY Cardiovascular: Regular Lungs: Clear Abdomen: Other (RUQ pain with minimal palpation ) Extremities: No edema A/P Assessment and Plan 75 year old female with acute cholecystitis -Reviewed Dr. Mcadams's notes---patient moderate to high risk for surgery -HIDA scan today -NPO -Antibiotics -Will review HIDA scan once complete and discuss with patient laparoscopic cholecystectomy versus cholecystostomy tube placement Attending Statement patient seen at bedside low grade fevers pt appears improving Attestation The exam, history, and the medical decision-making described in the above note were completed with the assistance of the mid-level provider. I reviewed and agree with the findings presented. I attest that I had a [id number] encounter with the patient on the same day, and personally performed and documented my assessment and findings in the medical record. Cecily Dietz July 21, 2016 10:55 Sherif Mancuso MD July 31, 2016 22:18
--- NOTE | 2016-07-21 10:56 | RADRPT ---
EXAM DATE/TIME: 07/21/2016 09:05 This report includes an Addendum and supersedes previous reports for this exam. [facility] COMPARISON: CT ABDOMEN & PELVIS W CONTRAST, April 11, 2016, 21:52. INDICATIONS : Elevated LFT's. DOSE: 4.3 mCi Tc99m Mebrofenin IV MEDICAL HISTORY : Chronic obstructive pulmonary disease. Hypercholesterolemia. Hypertension. SURGICAL HISTORY : Pacemaker. Hysterectomy. ENCOUNTER: Initial ACUITY: 3 days PAIN SCALE: 0/10 LOCATION: Abdomen. TECHNIQUE: Following the intravenous administration of radiotracer, dynamic sequential images were performed wit h continuous acquisition. FINDINGS: There is prompt extraction of radiotracer with activity seen in the common duct and small bowel in 5 minutes. There is nonvisualization of the gallbladder for one hour and 30 minutes consistent with ac franco or chronic cholecystitis. CONCLUSION: Nonvisualization gallbladder one hour and 30 minutes. Carloz Kiser MD FACR on July 21, 2016 at 10:48 Board Certified Radiologist. This report was verified electronically. ADDENDUM: 24 hour delayed imaging demonstrates radiotracer within the bowel. No uptake in the gallbla dder. Demarcus Hanely MD on July 22, 2016 at 10:35 Board Certified Radiologist. This report was verified electronically.
[2016-07-21] MEDS: VANCOMYCIN INJ 1,250 MG in SODIUM CHLOR 0.9% 250 ML INJ 250 ML IV SCH (13:44)
[2016-07-21 15:46] LABS: APTT (PATIENT) 26.6 SEC (24.3-30.1); PROTHROMBIN TIME - PATIENT 11.2 SEC (9.8-11.6)
[2016-07-21] MEDS ORDERED: fentaNYL CITRATE 250 MCG/5 ML AMP ONE (16:04)
[2016-07-21] MEDS ORDERED: MIDAZOLAM HCL 5 MG/5 ML VIAL ONE (16:04)
--- NOTE | 2016-07-21 17:22 | PD.RAD ---
Post Procedure Progress Note Pre Procedure Diagnosis: (1) cystic duct obstruction Post Procedure Diagnosis: (1) cystic duct obstruction Procedure Date: July 21, 2016 Supervising Radiologist: José Miguel Harris Proceduralist/Assist: Annetta Freeman, RT(R), Valarie Levine RT(R)(), Amira Hernandez RT(R)() Anesthesia: Local, Conscious Sedation Plan of Activity Patient to Unit: Nursing Unit Patient Condition: Fair See PACS Report for procedural detail/treatment Drainage Procedure Procedure 1 Imaging Guidance: Fluoroscopy, Ultrasound Side: Right Procedure Type: Cholecystostomy Procedure: Placement [place]: 7 Fluid Description: Bilious José Miguel Harris MD July 21, 2016 17:22
[2016-07-21] MEDS ORDERED: IOHEXOL 350 MG/ML 50 ML BTL (for RAD DIAG) ONE (17:48)
--- NOTE | 2016-07-21 17:53 | RADRPT ---
EXAM DATE/TIME: 07/21/2016 16:49 [facility] COMPARISON: No previous studies available for comparison. INDICATIONS : Patient is in need of placement of a cholecystostomy tube due to acute cholecystitis. MEDICAL HISTORY : History of heart disease, CAD, CHF, COPD, HTN, hyperlipidemia, thyroid disease, tachycardia. SURGICAL HISTORY : History of pacemaker placement, hysterectomy and right knee drainage. ENCOUNTER: Initial ACUITY: 2 days PAIN SCORE: 10/10 LOCATION: Right leg FLUORO TIME: 3.1 minutes IMAGE SERIES: 2 SEDATION TIME: 30 minutes CONTRAST: 11 cc Omnipaque (iohexol) 350 MEDICATION(S): 1.) 4 mg midazolam (Versed) IV 2.) 200 mcg fentanyl (Sublimaze) IV DEVICE(S): 1.) 7 [place] 20cm Skater catheter Locking PROCEDURE : 1. Ultrasound guided puncture of the gallbladder. 2. Percutaneous cholangiogram. 3. Percutaneous cholecystostomy tube placement. 4. Conscious sedation with continuous EKG and oximetry monitoring. The risks, benefits and alternatives to the procedure were explained and verbal and written consent w as obtained. The site was prepped in sterile fashion. Full sterile technique was used, including ca p, mask, sterile gloves and gown and a large sterile sheet. Hand hygiene and 2% chlorhexidine and/or betadine/alcohol prep was utilized per protocol for cutaneous antisepsis. The skin and subcutaneous tissues were infiltrated with local anesthetic solution. With ultrasound and fluoroscopic guidance the gallbladder was punctured with a micropuncture set and a 4 [place] dilator was placed. Injection of positive contrast demonstrates position within the gallb ladder. A 0.035 guidewire was placed within the gallbladder lumen and dilatation was performed to ac cept the prescribed catheter. A 7 [place] locking skater drainage catheter was inserted without difficulty. Conscious sedation was performed with the prescribed dosages and duration as above in the presence of an independent trained radiology nurse to assist in the monitoring of the patient. EKG and oximetry remained stable throughout the procedure. The patient tolerated the procedure well and there were n o complications. The patient was sent to post anesthesia recovery in stable condition. CONCLUSION: Uncomplicated percutaneous cholecystostomy as above. José Miguel Harris MD on July 21, 2016 at 17:49 Board Certified Radiologist. This report was verified electronically.
--- NOTE | 2016-07-21 18:37 | HHI.PR ---
Subjective Subjective Remarks right upper quadrant pain s/p cholecystostomy drain in IR no n/v tolerating liquid diet well no cp no sob Review of Systems Constitutional Constitutional Remarks 12 point ROS completed, negative except as noted above Vitals/Results Intake & Output 07/20/16 07/20/16 07/21/16 15:00 23:00 07:00 Intake Total 1198 ml 429 ml 814 ml Output Total 800 ml 500 ml 800 ml Balance 398 ml -71 ml 14 ml Intake Oral 600 ml 120 ml 120 ml IV Total 598 ml 309 ml 694 ml Output Urine Total 800 ml 500 ml 800 ml # Bowel Movements 0 0 0 Vital Signs Vital Signs Date Time Temp Pulse Resp B/P Pulse Ox O2 Delivery O2 Flow Rate FiO2 07/21/16 17:40 107 20 139/86 97 07/21/16 17:25 97.6 111 20 159/97 96 07/21/16 16:00 98.5 86 18 130/70 95 07/21/16 12:00 98.6 96 20 133/65 98 07/21/16 08:00 99.0 99 17 122/63 95 07/21/16 00:00 96.9 109 18 123/70 95 07/20/16 20:00 97.0 86 18 122/61 93 CBC/BMP: 07/21/16 0359 07/20/16 0400 Lab Results Laboratory Tests Test 07/21/16 07/21/16 03:59 14:35 White Blood Count 10.4 TH/MM3 Red Blood Count 3.75 MIL/MM3 Hemoglobin 10.5 GM/DL Hematocrit 32.7 % Mean Corpuscular Volume 87.0 FL Mean Corpuscular Hemoglobin 28.0 PG Mean Corpuscular Hemoglobin 32.1 % Concent Red Cell Distribution Width 14.6 % Platelet Count 341 TH/MM3 Mean Platelet Volume 7.6 FL Total Bilirubin 0.4 MG/DL Direct Bilirubin 0.2 MG/DL Indirect Bilirubin 0.2 MG/DL Aspartate Amino Transf 63 U/L (AST/SGOT) Alanine Aminotransferase 50 U/L (ALT/SGPT) Alkaline Phosphatase 242 U/L Total Protein 6.6 GM/DL Albumin 1.9 GM/DL Prothrombin Time 11.2 SEC Prothromb Time International 1.0 RATIO Ratio Activated Partial 26.6 SEC Thromboplast Time Physical Exam General General Appearance: Well Developed, No Acute Distress, Comfortable Eyes Eye Exam: Pupils Equal, Pupils Reactive Ears & Nose Ears & Nose Exam: Nasal Mucosa [place] Throat Throat Exam: Oral Mucosa [place] & Moist Neck Neck Exam: Neck Supple, Trachea Midline Pulmonary Resp Exam: Clear Bilaterally, No Distress Cardiology CV Exam: Regular, Good Perfusion Gastrointestinal/Abdomen GI Exam: Soft, Bowel Sounds Present, Non-Distended Genitourinary Remarks RUQ cholecystostomy drain Musculoskeletal MS Exam: Joints Intact Integumentary Skin Exam: Warm, Dry Extremeties Extremities Exam: No Edema, Pedal Pulses Palpable Neurologic Neuro Exam: Alert, Awake, Oriented, Speech Clear, Moving All Extremities, No Focal Deficits Psychiatric Psych Exam: Appropriate Responses VTE Prophylaxis VTE Prophylaxis Device: SCDs VTE Prophylaxis Meds: Heparin Assessment/Plan Problem List: (1) Cholecystitis (2) Right flank tenderness (3) cystic duct obstruction (4) Pacemaker (5) CAD (coronary artery disease) (6) Anxiety (7) Right knee pain (8) Osteoarthritis Assessment/Plan abd. pain with leukocytosis, elevated LFTs HIDA scan 07/21, + cholecystitis Dr. Mancuso's input appreciated evaluated by cardiology, high risk for surgery IR consult S/P placement of cholecystostomy tube 07/21 continue abx BC x 2, + GPC, staph epi, ? contaminant WBC trending down, no fever continue with pain management PT eval and tx right knee with severe OA continue with pain management for now SCD/Heparin for DVT prophylaxis Labs reviewed, LFTs trending down Home medications reviewed, some initiated Pain improving, continue with above tx, pt. likely to stay over weekend for abx therapy Labs in am D/W RN D/W Dr. Robledo D/W pt This patient was seen by myself and Dr. Robledo, this note is written on his behalf. Problem Qualifiers (1) CAD (coronary artery disease): Qualified Code: I25.10 - Coronary artery disease involving [place] coronary artery of [place] heart without angina pectoris (2) Right knee pain: Qualified Code: M25.561 - Chronic pain of right knee (3) Osteoarthritis: Qualified Code: M19.90 - Osteoarthritis, unspecified osteoarthritis type, unspecified site Trinity Aquino July 21, 2016 18:37
[2016-07-21] MEDS ORDERED: PILL SPLITTER OTHER PRN (18:45)
[2016-07-22] MEDS: SODIUM CHLOR 0.45% 1000 ML INJ 1,000 ML IV SCH ×3 (00:31→19:55)
[2016-07-22] MEDS: VANCOMYCIN INJ 1,250 MG in SODIUM CHLOR 0.9% 250 ML INJ 250 ML IV SCH ×2 (00:31→12:04)
[2016-07-22] MEDS: HYDROmorphone HCL PF 1 MG/ML VIAL IV PRN ×6 (03:06→22:53)
[2016-07-22] MEDS: AMPICILLIN-SULBACTAM INJ 1,500 MG in SODIUM CHLORIDE 0.9% INJ 100 ML IV SCH ×4 (04:25→22:54)
[2016-07-22 07:45] LABS: ALKALINE PHOSPHATASE 204 U/L (45-117); ALT (GPT) 43 U/L (10-53); ANION GAP 8 MEQ/L (5-15); AST (GOT) 51 U/L (15-37); BICARBONATE 30.7 MEQ/L (21.0-32.0); BLOOD UREA NITROGEN 6 MG/DL (7-18); CHLORIDE 98 MEQ/L (98-107); GLOMERULAR FILTRATION RATE 120 ML/MIN (>89); SODIUM (NA) 137 MEQ/L (136-145); TOTAL BILIRUBIN ADULT 0.3 MG/DL (0.2-1.0)
[2016-07-22 08:00] VITALS: BP 140/66; PULSE 104; RESP 17; TEMP 97.2; O2SAT 94
[2016-07-22] MEDS: PARoxetine HCL 20 MG TAB PO SCH (08:15)
[2016-07-22] MEDS: HEPARIN SODIUM - SQ 10,000 UNITS/ML VIAL SQ SCH ×2 (08:16→19:55)
--- NOTE | 2016-07-22 11:30 | HHI.PR ---
Subjective Remarks Is lying on bed without any apparent distress watching TV Has pain in her abdomen right upper quadrant and also has pain in her knee. Pain medication is helping helping her No other complaint. breathing better no chest pain no diaphoresis. No palpitations. Review of system for 12 point system otherwise unremarkable Objective Objective Results - Vital Signs Date Time Temp Pulse Resp B/P Pulse Ox O2 Delivery O2 Flow Rate FiO2 07/22/16 08:00 97.2 104 17 140/66 94 07/22/16 07:19 18 07/21/16 23:50 96.8 107 20 149/66 95 07/21/16 20:00 96.1 107 19 146/69 96 07/21/16 17:40 107 20 139/86 97 07/21/16 17:25 97.6 111 20 159/97 96 07/21/16 16:00 98.5 86 18 130/70 95 07/21/16 12:00 98.6 96 20 133/65 98 I/O 07/21/16 07/21/16 07/21/16 07/22/16 07/22/16 07/22/16 07:00 15:00 23:00 07:00 15:00 23:00 Intake Total 814 ml 570 ml 720 ml 687 ml Output Total 800 ml 800 ml 550 ml 850 ml Balance 14 ml -230 ml 170 ml -163 ml Intake Oral 120 ml 120 ml 240 ml 120 ml IV Total 694 ml 450 ml 480 ml 567 ml Output Urine Total 800 ml 800 ml 500 ml 800 ml Drainage Total 50 ml 50 ml # Bowel Movements 0 0 0 0 Result Diagram: 07/21/16 0359 07/22/16 0550 Other Results Laboratory Tests Test 07/21/16 07/22/16 14:35 05:50 Prothrombin Time 11.2 Prothromb Time International 1.0 Ratio Activated Partial 26.6 Thromboplast Time Sodium Level 137 Potassium Level 3.0 Chloride Level 98 Carbon Dioxide Level 30.7 Anion Gap 8 Blood Urea Nitrogen 6 Creatinine 0.50 Estimat Glomerular Filtration 120 Rate Random Glucose 100 Calcium Level 8.2 Total Bilirubin 0.3 Aspartate Amino Transf 51 (AST/SGOT) Alanine Aminotransferase 43 (ALT/SGPT) Alkaline Phosphatase 204 Total Protein 6.5 Albumin 1.7 Date/Time Procedure Status Source Growth 07/19/16 17:00 Aerobic Blood Culture - Preliminary Resulted Blood Line Staphylococcus Epidermidis 07/19/16 17:00 Anaerobic Blood Culture - Preliminary Resulted Blood Line NO GROWTH IN 3 DAYS Physical Exam Physical Exam VITAL SIGNS: Reviewed HEENT: Atraumatic, normocephalic. Pupils equal, round, reactive to light and accommodation at 2. [place] mucous membranes. No scleral icterus. NECK: Supple. Central trachea CARDIOVASCULAR: S1-S2. No murmurs, rubs, or gallops. She has no edema in her lower extremities. Her pulses are intact. LUNGS: She does have some diminished breath sounds in her lower lobes. Upper [place] are essentially clear. No rhonchi. No wheezing. ABDOMEN: Round. Soft. Some tenderness in the right upper quadrant no rebound no guarding or rigidity positive bowel sounds. Positive cholecystostomy tube with drainage back dark greenish fluid MUSCULOSKELETAL: Moves her extremities with purpose. She does have generalized weakness. NEUROLOGIC: She is alert and oriented. Her speech is clear. 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 Tongue is midline. PSYCHIATRIC: Appropriate mood and affect A/P Assessment and Plan (1) Cholecystitis (2) Right flank tenderness (3) cystic duct obstruction (4) Pacemaker (5) CAD (coronary artery disease) (6) Anxiety (7) Right knee pain (8) Osteoarthritis Assessment/Plan Labs reviewed Within normal limits WBC count Slight anemia will monitor Low potassium will replace Altered LFTs will monitor Hypoalbuminemia Radiological data reviewed Notes reviewed Continue antibiotics Appreciate surgical input Awaiting cardiology input Appreciate invasive radiology help Analgesics when necessary for pain in abdomen and knee joint. IV hydration SCD for DVT prophylaxis PPI for GI prophylaxis Discussed with patient Discussed with Antwan Peña MD July 22, 2016 11:30
[2016-07-22 12:00] VITALS: BP 109/65; PULSE 98; RESP 16; TEMP 97.5; O2SAT 96
[2016-07-22] MEDS: ONDANSETRON HCL 4 MG/2 ML VIAL IVP PRN (14:44)
--- NOTE | 2016-07-22 15:37 | PD.CARD.PN ---
Subjective Subjective Remarks alert in nad Objective Vital Signs / I&O Vital Signs Date Time Temp Pulse Resp B/P Pulse Ox O2 Delivery O2 Flow Rate FiO2 07/22/16 12:00 97.5 98 16 109/65 96 07/22/16 11:14 18 07/22/16 08:00 97.2 104 17 140/66 94 07/21/16 23:50 96.8 107 20 149/66 95 07/21/16 20:00 96.1 107 19 146/69 96 07/21/16 17:40 107 20 139/86 97 07/21/16 17:25 97.6 111 20 159/97 96 07/21/16 16:00 98.5 86 18 130/70 95 I/O 07/21/16 07/21/16 07/21/16 07/22/16 07/22/16 07/22/16 06:59 14:59 22:59 06:59 14:59 22:59 Intake Total 814 ml 570 ml 720 ml 687 ml 1522 ml Output Total 800 ml 800 ml 550 ml 850 ml 1200 ml Balance 14 ml -230 ml 170 ml -163 ml 322 ml Intake Oral 120 ml 120 ml 240 ml 120 ml 720 ml IV Total 694 ml 450 ml 480 ml 567 ml 802 ml Output Urine Total 800 ml 800 ml 500 ml 800 ml 1100 ml Drainage Total 50 ml 50 ml 100 ml # Bowel Movements 0 0 0 0 0 Laboratory GENERAL: SKIN: Warm and dry. HEAD: Normocephalic. EYES: No scleral icterus. No injection or drainage. NECK: Supple, trachea midline. No JVD or lymphadenopathy. CARDIOVASCULAR: Regular rate and rhythm without murmurs, gallops, or rubs. RESPIRATORY: Breath sounds equal bilaterally. No accessory muscle use. GASTROINTESTINAL: Abdomen soft, non-tender, nondistended. MUSCULOSKELETAL: No cyanosis, or edema. BACK: Nontender without obvious deformity. No CVA tenderness. Laboratory Tests Test 07/22/16 05:50 Sodium Level 137 MEQ/L Potassium Level 3.0 MEQ/L Chloride Level 98 MEQ/L Carbon Dioxide Level 30.7 MEQ/L Anion Gap 8 MEQ/L Blood Urea Nitrogen 6 MG/DL Creatinine 0.50 MG/DL Estimat Glomerular Filtration 120 ML/MIN Rate Random Glucose 100 MG/DL Calcium Level 8.2 MG/DL Total Bilirubin 0.3 MG/DL Aspartate Amino Transf 51 U/L (AST/SGOT) Alanine Aminotransferase 43 U/L (ALT/SGPT) Alkaline Phosphatase 204 U/L Total Protein 6.5 GM/DL Albumin 1.7 GM/DL Assessment and Plan Problem List: (1) Pacemaker (2) CAD (coronary artery disease) Assessment and Plan 1.) CAD - aspirin held due to possible surgery, assymptomatic, restart aspirin when cleared by surgery Problem Qualifiers (1) CAD (coronary artery disease): Qualified Code: I25.10 - Coronary artery disease involving [place] coronary artery of [place] heart without angina pectoris Rafi Mcadams MD July 22, 2016 15:37
--- NOTE | 2016-07-22 15:57 | HHI.PR ---
Subjective Subjective Notes DAILY PROGRESS NOTE FOR SURGICAL ATTENDING, DR. JASE WOODARD Patient states she feels 100% better after having cholecystotomy tube placed Objective Vitals/I&O Vital Signs Date Time Temp Pulse Resp B/P Pulse Ox O2 Delivery O2 Flow Rate FiO2 07/22/16 12:00 97.5 98 16 109/65 96 07/19/16 18:58 Nasal Cannula 2 Labs Laboratory Tests Test 07/22/16 05:50 Sodium Level 137 Potassium Level 3.0 Chloride Level 98 Carbon Dioxide Level 30.7 Anion Gap 8 Blood Urea Nitrogen 6 Creatinine 0.50 Estimat Glomerular Filtration 120 Rate Random Glucose 100 Calcium Level 8.2 Total Bilirubin 0.3 Aspartate Amino Transf 51 (AST/SGOT) Alanine Aminotransferase 43 (ALT/SGPT) Alkaline Phosphatase 204 Total Protein 6.5 Albumin 1.7 Date/Time Procedure Status Source Growth 07/19/16 17:00 Aerobic Blood Culture - Preliminary Resulted Blood Line Staphylococcus Epidermidis 07/19/16 17:00 Anaerobic Blood Culture - Preliminary Resulted Blood Line NO GROWTH IN 3 DAYS Radiology Last Impressions Percutaneous Cholangiogram 07/21/16 0000 Signed Impressions: Service Date/Time: Thursday, July 21, 2016 16:49 - CONCLUSION: Uncomplicated percutaneous cholecystostomy as above. José Miguel Harris MD Hepatobiliary Scan Nuclear Medicine 07/21/16 0000 Signed Impressions: Service Date/Time: Thursday, July 21, 2016 09:05 - CONCLUSION: Nonvisualization gallbladder one hour and 30 minutes. Carloz Kiser MD FACRADDENDUM: 24 hour delayed imaging demonstrates radiotracer within the bowel. No uptake in the gallbladder. Demarcus Hanley MD Gall Bladder Ultrasound 07/19/16 1655 Signed Impressions: Service Date/Time: Tuesday, July 19, 2016 17:11 - CONCLUSION: Limited exam with trace free fluid. Echogenic liver. No definite gallstones. Carloz Kiser MD FACR Knee X-Ray 07/19/16 1440 Signed Impressions: Service Date/Time: Tuesday, July 19, 2016 15:28 - CONCLUSION: Severe osteoarthritis. Small effusion without fracture. Demarcus Hanley MD Chest X-Ray 07/19/16 0000 Signed Impressions: Service Date/Time: Tuesday, July 19, 2016 16:35 - CONCLUSION: No acute disease. AICD appear stable José Miguel Harris MD Abdomen: Non-tender, Other, BS normal Narrative Exam Cholecystotomy tube in place A/P Problem List: (1) Abnormal biliary HIDA scan (2) Acute acalculous cholecystitis (3) cystic duct obstruction (4) Cholecystostomy care (5) CAD (coronary artery disease) (6) Chest pain of uncertain etiology (7) Pacemaker Assessment and Plan 75 year old female with acute cholecystitis -Reviewed Dr. Mcadams's notes---patient moderate to high risk for surgery 100% better after cholecystotomy tube -Continue Antibiotics Advance diet and activities Attending Statement NOTE FOR SURGICAL ATTENDING, DR. JASE WOODARD I attest that I had a [id number] encounter with the patient on the same day, and personally performed and documented my assessment and findings in the medical record. The following services were provided during this hospital visit: Chart data review, vital sign assessments/reviewing monitor data Review of consultations notes if present. Medication orders/review and/or management Ordering and/or reviewing lab tests Ordering and/or interpreting/reviewing x-rays and/or diagnostic studies Care of the patient and discussion of the patient with the care team Documentation time To help prompt me to consider important information that might be impacting today's encounter and assessment, information from prior notes written by myself or my colleagues may have been "brought forward/copy and pasted" into today's note. Problem Qualifiers (1) CAD (coronary artery disease): Qualified Code: I25.10 - Coronary artery disease involving [place] coronary artery of [place] heart without angina pectoris Jase Woodard MD July 22, 2016 15:57
[2016-07-22 16:00] VITALS: BP 125/72; PULSE 97; RESP 17; TEMP 97.1; O2SAT 98
[2016-07-22 20:00] VITALS: BP 142/82; PULSE 106; RESP 18; TEMP 96.8; O2SAT 94
[2016-07-22] MEDS ORDERED: PHARMACY ORDERED LAB ONE (23:45)
[2016-07-22 23:55] VITALS: BP 145/72; PULSE 107; RESP 27; TEMP 96.3; O2SAT 97
[2016-07-23] MEDS: ACETAMINOPHEN 325 MG TAB PO PRN (00:40)
[2016-07-23] MEDS: VANCOMYCIN INJ 1,250 MG in SODIUM CHLOR 0.9% 250 ML INJ 250 ML IV SCH ×3 (01:34→23:57)
[2016-07-23] MEDS: HYDROmorphone HCL PF 1 MG/ML VIAL IV PRN ×6 (03:14→22:00)
[2016-07-23] MEDS: AMPICILLIN-SULBACTAM INJ 1,500 MG in SODIUM CHLORIDE 0.9% INJ 100 ML IV SCH ×4 (05:01→21:59)
[2016-07-23 08:00] VITALS: BP 158/84; PULSE 98; RESP 17; TEMP 97.3; O2SAT 97
[2016-07-23] MEDS: PARoxetine HCL 20 MG TAB PO SCH (08:01)
[2016-07-23] MEDS: HEPARIN SODIUM - SQ 10,000 UNITS/ML VIAL SQ SCH ×2 (08:01→20:17)
--- NOTE | 2016-07-23 10:35 | PD.CARD.PN ---
Subjective Subjective Remarks alert in nad Objective Vital Signs / I&O Vital Signs Date Time Temp Pulse Resp B/P Pulse Ox O2 Delivery O2 Flow Rate FiO2 07/23/16 08:00 97.3 98 17 158/84 97 07/22/16 23:55 96.3 107 27 145/72 97 07/22/16 20:00 96.8 106 18 142/82 94 07/22/16 16:00 97.1 97 17 125/72 98 07/22/16 15:09 18 07/22/16 12:00 97.5 98 16 109/65 96 I/O 07/22/16 07/22/16 07/22/16 07/23/16 07/23/16 07/23/16 07:00 15:00 23:00 07:00 15:00 23:00 Intake Total 687 ml 1522 ml 870 ml 835 ml Output Total 850 ml 1200 ml 760 ml 1610 ml Balance -163 ml 322 ml 110 ml -775 ml Intake Oral 120 ml 720 ml 320 ml 320 ml IV Total 567 ml 802 ml 550 ml 515 ml Output Urine Total 800 ml 1100 ml 700 ml 1500 ml Drainage Total 50 ml 100 ml 60 ml 110 ml # Bowel Movements 0 0 0 0 Laboratory GENERAL: SKIN: Warm and dry. HEAD: Normocephalic. EYES: No scleral icterus. No injection or drainage. NECK: Supple, trachea midline. No JVD or lymphadenopathy. CARDIOVASCULAR: Regular rate and rhythm without murmurs, gallops, or rubs. RESPIRATORY: Breath sounds equal bilaterally. No accessory muscle use. GASTROINTESTINAL: Abdomen soft, non-tender, nondistended. MUSCULOSKELETAL: No cyanosis, or edema. BACK: Nontender without obvious deformity. No CVA tenderness. Laboratory Tests Test 07/23/16 01:31 Vancomycin Level Trough 14.1 MCG/ML Assessment and Plan Problem List: (1) Pacemaker (2) CAD (coronary artery disease) Assessment and Plan 1.) CAD - aspirin held due to possible surgery, assymptomatic, restart aspirin when cleared by surgery Problem Qualifiers (1) CAD (coronary artery disease): Qualified Code: I25.10 - Coronary artery disease involving [place] coronary artery of [place] heart without angina pectoris Rafi Mcadams MD July 23, 2016 10:35
--- NOTE | 2016-07-23 11:08 | HHI.PR ---
Subjective Remarks Is lying on bed without any apparent distress watching TV Has pain in her abdomen right upper quadrant some pain medications help and also has pain in her knee for which she needed more pain medication. Has some cough with whitish sputum No other complaint. breathing better no chest pain no diaphoresis. No palpitations. Review of system for 10 point system otherwise unremarkable Objective Objective Results - Vital Signs Date Time Temp Pulse Resp B/P Pulse Ox O2 Delivery O2 Flow Rate FiO2 07/23/16 08:00 97.3 98 17 158/84 97 07/22/16 23:55 96.3 107 27 145/72 97 07/22/16 20:00 96.8 106 18 142/82 94 07/22/16 16:00 97.1 97 17 125/72 98 07/22/16 15:09 18 07/22/16 12:00 97.5 98 16 109/65 96 I/O 07/22/16 07/22/16 07/22/16 07/23/16 07/23/16 07/23/16 06:59 14:59 22:59 06:59 14:59 22:59 Intake Total 687 ml 1522 ml 870 ml 835 ml Output Total 850 ml 1200 ml 760 ml 1610 ml Balance -163 ml 322 ml 110 ml -775 ml Intake Oral 120 ml 720 ml 320 ml 320 ml IV Total 567 ml 802 ml 550 ml 515 ml Output Urine Total 800 ml 1100 ml 700 ml 1500 ml Drainage Total 50 ml 100 ml 60 ml 110 ml # Bowel Movements 0 0 0 0 Result Diagram: 07/21/16 0359 07/22/16 0550 Other Results Laboratory Tests Test 07/23/16 01:31 Vancomycin Level Trough 14.1 Date/Time Procedure Status Source Growth 07/19/16 17:00 Aerobic Blood Culture - Final Resulted Blood Line Staphylococcus Epidermidis 07/19/16 17:00 Anaerobic Blood Culture - Preliminary Resulted Blood Line NO GROWTH IN 3 DAYS Physical Exam Physical Exam VITAL SIGNS: Reviewed HEENT: Atraumatic, normocephalic. Pupils equal, round, reactive to light and accommodation at 2. [place] mucous membranes. No scleral icterus. NECK: Supple. Central trachea CARDIOVASCULAR: S1-S2. No murmurs, rubs, or gallops. She has no edema in her lower extremities. Her pulses are intact. LUNGS: She does have some diminished breath sounds in her lower lobes. Upper carbajal are essentially clear. No rhonchi. No wheezing. ABDOMEN: Round. Soft. Some tenderness in the right upper quadrant no rebound no guarding or rigidity positive bowel sounds. Positive cholecystostomy tube with drainage back dark greenish fluid MUSCULOSKELETAL: Moves her extremities with purpose slowly. She does have generalized weakness. Positive tenderness of the right knee area with no discoloration or swelling NEUROLOGIC: She is alert and oriented. Her speech is clear. 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 Tongue is midline. PSYCHIATRIC: Appropriate mood and affect A/P Assessment and Plan (1) Cholecystitis (2) Right flank tenderness (3) cystic duct obstruction (4) Pacemaker (5) CAD (coronary artery disease) (6) Anxiety (7) Right knee pain (8) Osteoarthritis Assessment/Plan Labs reviewed Slight anemia will monitor Altered LFTs will monitor Hypoalbuminemia Radiological data reviewed Increase pain medication Plan for x-ray knee Plan for infectious disease consult for bacteremia Notes reviewed Continue antibiotics Appreciate surgical input Appreciate cardiology input Appreciate invasive radiology help. Status post cholecystostomy Analgesics when necessary for pain in abdomen and knee joint. IV hydration SCD for DVT prophylaxis PPI for GI prophylaxis Discussed with patient Discussed with RN Antwan Robledo MD July 23, 2016 11:07
[2016-07-23] MEDS: SODIUM CHLOR 0.45% 1000 ML INJ 1,000 ML IV SCH ×2 (11:32→23:57)
--- NOTE | 2016-07-23 11:38 | RADRPT ---
EXAM DATE/TIME: 07/23/2016 11:15 [facility] COMPARISON: KNEE RIGHT LTD (1 OR 2 VWS), July 19, 2016, 15:28. INDICATIONS : Pain in right knee. MEDICAL HISTORY : Arthritis. SURGICAL HISTORY : None. ENCOUNTER: Initial ACUITY: 1 day PAIN SCORE: 0/10 LOCATION: Right knee FINDINGS: Two view examination of the right knee demonstrates no evidence of fracture or dislocation. Severe tr icompartment osteoarthritis. Joint effusion. Soft tissue swelling CONCLUSION: 1. Severe osteoarthritis. 2. Joint effusion. Demarcus Hanley MD on July 23, 2016 at 11:34 Board Certified Radiologist. This report was verified electronically.
[2016-07-23 12:00] VITALS: BP 115/76; PULSE 92; RESP 18; TEMP 95.9; O2SAT 97
[2016-07-23] MEDS ORDERED: HYDROmorphone HCL PF 1 MG/ML VIAL IV PUSH ONE (12:15)
--- NOTE | 2016-07-23 13:16 | HHI.PR ---
Subjective Subjective Notes s/p cholecystostomy tube feels better Objective Vitals/I&O Vital Signs Date Time Temp Pulse Resp B/P Pulse Ox O2 Delivery O2 Flow Rate FiO2 07/23/16 12:00 95.9 92 18 115/76 97 07/19/16 18:58 Nasal Cannula 2 Labs Laboratory Tests Test 07/23/16 01:31 Vancomycin Level Trough 14.1 Date/Time Procedure Status Source Growth 07/19/16 17:00 Aerobic Blood Culture - Final Resulted Blood Line Staphylococcus Epidermidis 07/19/16 17:00 Anaerobic Blood Culture - Preliminary Resulted Blood Line NO GROWTH IN 4 DAYS Radiology Last Impressions Percutaneous Cholangiogram 07/21/16 0000 Signed Impressions: Service Date/Time: Thursday, July 21, 2016 16:49 - CONCLUSION: Uncomplicated percutaneous cholecystostomy as above. José Miguel Harris MD Hepatobiliary Scan Nuclear Medicine 07/21/16 0000 Signed Impressions: Service Date/Time: Thursday, July 21, 2016 09:05 - CONCLUSION: Nonvisualization gallbladder one hour and 30 minutes. Carloz Kiser MD FACRADDENDUM: 24 hour delayed imaging demonstrates radiotracer within the bowel. No uptake in the gallbladder. Demarcus Hanley MD Gall Bladder Ultrasound 07/19/16 1655 Signed Impressions: Service Date/Time: Tuesday, July 19, 2016 17:11 - CONCLUSION: Limited exam with trace free fluid. Echogenic liver. No definite gallstones. Carloz Kiser MD FACR Knee X-Ray 07/19/16 1440 Signed Impressions: Service Date/Time: Tuesday, July 19, 2016 15:28 - CONCLUSION: Severe osteoarthritis. Small effusion without fracture. Demarcus Hanley MD Chest X-Ray 07/19/16 0000 Signed Impressions: Service Date/Time: Tuesday, July 19, 2016 16:35 - CONCLUSION: No acute disease. AICD appear stable José Miguel Harris MD Abdomen: Non-distended, Non-tender A/P Problem List: (1) Abnormal biliary HIDA scan (2) Acute acalculous cholecystitis (3) cystic duct obstruction (4) Cholecystostomy care (5) CAD (coronary artery disease) (6) Chest pain of uncertain etiology (7) Pacemaker Assessment and Plan 75yo female s/p cholecystostomy tube, stable. pain better, ok to advance to low fat diet, continue ABX and drain Problem Qualifiers (1) CAD (coronary artery disease): Qualified Code: I25.10 - Coronary artery disease involving [place] coronary artery of [place] heart without angina pectoris Jose Tripp MD July 23, 2016 13:16
[2016-07-23 16:00] VITALS: BP 155/80; PULSE 93; RESP 19; TEMP 95.6; O2SAT 97
--- NOTE | 2016-07-23 16:49 | MB ---
cc: CAMPBELL OBRIEN MD DATE OF CONSULTATION: 07/23/2016. REASON FOR CONSULTATION: Bacteremia. REQUESTING PHYSICIAN: Dr. Robledo. HISTORY OF PRESENT ILLNESS: This is a 75-year-old white female who presented to the emergency department on 07/19/2016 with severe right knee pain. She was recently hospitalized at [facility] in June and reportedly had aspiration of her right knee and she was treated with antibiotics. It is not clear what infection or organism was recovered. The patient was admitted to the hospital, and after admission she developed abdominal pain, and was found to possibly have acalculous cholecystitis and she underwent placement of a cholecystostomy tube on 07/21. Blood cultures were taken on 07/19 and three of four bottles had staph coagulase-negative. The patient did not have any IV catheters when she was seen in the emergency department. She also had complained of nausea and vomiting as well. The patient reportedly had been transferred to a rehab facility from [facility] and was not happy with the facility and therefore she signed out against medical advice. She states that she has excruciating pain in the right knee currently. She is afebrile. Her white blood cell count was 12.7 on admission and it is now down to 10.4. X-ray of right knee shows severe osteoarthritis and joint effusion. PAST MEDICAL HISTORY: 1. Coronary artery disease. 2. Hyperlipidemia. 3. Congestive heart failure. 4. Chronic obstructive pulmonary disease. 5. Hypertension. 6. Osteoarthritis. 7. Thyroid disease. 8. Pacemaker. 9. Hysterectomy. ALLERGIES: 1. TORADOL. 2. TRAMADOL. 3. CODEINE. MEDICATIONS: 1. Vancomycin. 2. Ampicillin / sulbactam. 3. Paxil. 4. Tylenol. 5. Senokot. 6. Dilaudid PRN. SOCIAL HISTORY: No tobacco, no alcohol, no illicit drugs. The patient lives with her daughter. She notes that she has been given an eviction notice from her home. REVIEW OF SYSTEMS: Negative on a ten-point review except for pain in both knees, worse on the right, soreness at the right upper abdomen where the cholecystostomy tube is located. She notes feeling somewhat depressed as a result of her housing situation. PHYSICAL EXAMINATION: GENERAL: This is a well-developed female who is in no acute distress. She is awake, alert and oriented. VITAL SIGNS: Temperature 95.9, blood pressure 115/76, respirations 18, heart rate 92. HEAD, EYES, EARS, NOSE, THROAT: Head is atraumatic. Extraocular movements grossly intact. Pupils reactive to light. No icterus. Oropharynx with moist mucosa without lesions. NECK: The neck is supple. No swelling. No adenopathy. No tenderness. LUNGS: Clear to auscultation. HEART: Regular S1-S2. No murmurs, rubs or gallops. ABDOMEN: Bowel sounds present, soft. Mild tenderness around the right upper quadrant. No rebound. RECTAL: Not performed. EXTREMITIES: Swelling of the right knee. Mild warmth. No erythema. The rest of the extremities have no clubbing, cyanosis or edema. SKIN: No rash. NEUROLOGIC: No gross focal findings. LABORATORY DATA: WBCs 10.4, platelets 341,000, hemoglobin 10.5. Creatinine 0.5, BUN 6, sodium 137, AST 51, ALT 43, alkaline phosphatase 204. IMPRESSION: 1. Bacteremia due to Staphylococcus epidermidis, unclear etiology. 2. Acalculous cholecystitis. Patient is status post percutaneous cholecystostomy tube placement. 3. Right knee pain. Recent aspiration of fluid from the right knee. Information from recent hospitalization not available at this time. RECOMMENDATIONS: 1. Repeat the blood culture. 2. Obtain fluid from the cholecystostomy drainage for culture. 3. Continue vancomycin. 4. Continue ampicillin / sulbactam. 5. Monitor clinical status. The blood cultures reveal three of four bottles positive, and despite being Staph epidermidis, because of the presence of the bacteria in three bottles, it is probably less likely to be contamination and therefore additional workup as outlined above will be pursued. Thank you this consultation. The patient's progress will be monitored and further recommendations will be given upon followup. Campbell Obrien MD FD/SHARLENE /3:18 PM /4:36 PM
[2016-07-23 20:00] VITALS: BP 133/61; PULSE 99; RESP 20; TEMP 96.7; O2SAT 93
[2016-07-23 23:46] VITALS: BP 123/77; PULSE 98; RESP 20; TEMP 97.1; O2SAT 94
[2016-07-24] MEDS: HYDROmorphone HCL PF 1 MG/ML VIAL IV PRN ×5 (01:23→23:50)
[2016-07-24] MEDS: AMPICILLIN-SULBACTAM INJ 1,500 MG in SODIUM CHLORIDE 0.9% INJ 100 ML IV SCH ×2 (04:25→10:41)
[2016-07-24 04:27] LABS: HEMATOCRIT 37.8 % (35.0-46.0); MEAN CELL VOLUME 86.5 FL (80.0-100.0); MEAN CORPUSCULAR HEMOGLOBIN 27.8 PG (27.0-34.0); MEAN CORPUSCULAR HGB CONC 32.2 % (32.0-36.0); PLATELET COUNT 450 TH/MM3 (150-450); RED BLOOD COUNT 4.38 MIL/MM3 (4.00-5.30); RED CELL DISTRIBUTION WIDTH 14.4 % (11.6-17.2); WHITE BLOOD COUNT 15.7 TH/MM3 (4.0-11.0)
[2016-07-24 04:31] LABS: REVIEW FLAG FINAL
[2016-07-24 04:59] LABS: BICARBONATE 29.2 MEQ/L (21.0-32.0)
[2016-07-24 05:03] LABS: POTASSIUM 3.5 MEQ/L (3.5-5.1)
[2016-07-24] MEDS: HEPARIN SODIUM - SQ 10,000 UNITS/ML VIAL SQ SCH ×2 (07:57→22:02)
[2016-07-24] MEDS: PARoxetine HCL 20 MG TAB PO SCH (07:57)
[2016-07-24 08:00] VITALS: BP 166/88; PULSE 104; RESP 19; TEMP 96.9; O2SAT 93
--- NOTE | 2016-07-24 10:48 | HHI.PR ---
Subjective Remarks Is lying on bed without any apparent distress watching TV Has pain in her abdomen right upper quadrant some, pain medications help and also has severe pain in her right knee for which she needed more pain medication. Patient refusing for physical therapy because of her pain Patient wants some sleeping medication as she could not sleep Has some cough with whitish sputum No other complaint. breathing better no chest pain no diaphoresis. No palpitations. Review of system for 12 point system otherwise unremarkable Objective Objective Results - Vital Signs Date Time Temp Pulse Resp B/P Pulse Ox O2 Delivery O2 Flow Rate FiO2 07/24/16 08:00 96.9 104 19 166/88 93 07/23/16 23:46 97.1 98 20 123/77 94 07/23/16 20:00 96.7 99 20 133/61 93 07/23/16 16:00 95.6 93 19 155/80 97 07/23/16 12:00 95.9 92 18 115/76 97 I/O 07/23/16 07/23/16 07/23/16 07/24/16 07/24/16 07/24/16 06:59 14:59 22:59 06:59 14:59 22:59 Intake Total 835 ml 935 ml 865 ml 790 ml Output Total 1610 ml 770 ml 470 ml 1775 ml Balance -775 ml 165 ml 395 ml -985 ml Intake Oral 320 ml 300 ml 240 ml 240 ml IV Total 515 ml 635 ml 625 ml 550 ml Output Urine Total 1500 ml 650 ml 350 ml 1650 ml Drainage Total 110 ml 120 ml 120 ml 125 ml # Bowel Movements 0 0 0 0 Result Diagram: 07/24/16 0333 07/24/16 0333 Other Results Laboratory Tests Test 07/24/16 03:33 White Blood Count 15.7 Red Blood Count 4.38 Hemoglobin 12.2 Hematocrit 37.8 Mean Corpuscular Volume 86.5 Mean Corpuscular Hemoglobin 27.8 Mean Corpuscular Hemoglobin 32.2 Concent Red Cell Distribution Width 14.4 Platelet Count 450 Mean Platelet Volume 7.4 Sodium Level 138 Potassium Level 3.5 Chloride Level 101 Carbon Dioxide Level 29.2 Anion Gap 8 Blood Urea Nitrogen 4 Creatinine 0.40 Estimat Glomerular Filtration 155 Rate Random Glucose 87 Calcium Level 9.2 Date/Time Procedure Status Source Growth 07/23/16 18:25 Aerobic Blood Culture Received Blood Peripheral Pending 07/23/16 18:25 Anaerobic Blood Culture Received Blood Peripheral Pending 07/23/16 15:45 Gram Stain - Final Resulted Wound Gallbladder 07/23/16 15:45 Wound Culture Resulted Wound Gallbladder Pending 07/19/16 17:00 Aerobic Blood Culture - Final Resulted Blood Line Staphylococcus Epidermidis 07/19/16 17:00 Anaerobic Blood Culture - Preliminary Resulted Blood Line NO GROWTH IN 4 DAYS Physical Exam Physical Exam VITAL SIGNS: Reviewed HEENT: Atraumatic, normocephalic. Pupils equal, round, reactive to light and accommodation at 2. [place] mucous membranes. No scleral icterus. NECK: Supple. Central trachea CARDIOVASCULAR: S1-S2. No murmurs, rubs, or gallops. She has no edema in her lower extremities. Her pulses are intact. LUNGS: She does have some diminished breath sounds in her lower lobes. Upper carbajal are essentially clear. No rhonchi. No wheezing. ABDOMEN: Round. Soft. Some tenderness in the right upper quadrant no rebound no guarding or rigidity positive bowel sounds. Positive cholecystostomy tube with drainage back dark greenish fluid MUSCULOSKELETAL: Moves her extremities with purpose slowly. She does have generalized weakness. Positive tenderness of the right knee area with swelling no discoloration. NEUROLOGIC: She is alert and oriented. Her speech is clear. 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 PSYCHIATRIC: Appropriate mood and affect A/P Assessment and Plan (1) Cholecystitis (2) Right flank tenderness (3) cystic duct obstruction (4) Pacemaker (5) CAD (coronary artery disease) (6) Anxiety (7) Right knee pain (8) Osteoarthritis Assessment/Plan Labs reviewed Slight anemia improved Increase WBC count will monitor Altered LFTs will monitor Hypoalbuminemia Radiological data reviewed Plan for orthopedic consult for severe right knee pain Will add NSAIDs for pain and swelling of right knee Continue IV analgesics on a when necessary basis Restoril for sleep on as-needed basis Appreciate infectious disease consult for bacteremia Notes reviewed Continue antibiotics per ID Appreciate surgical input. Discussed the surgeon on the floor Appreciate cardiology input Appreciate invasive radiology help. Status post cholecystostomy Analgesics when necessary for pain in abdomen and knee joint. IV hydration SCD for DVT prophylaxis PPI for GI prophylaxis Discussed with patient Discussed with RN Discussed with physical therapist Antwan Robledo MD July 24, 2016 10:48
[2016-07-24 12:00] VITALS: BP 153/72; PULSE 93; RESP 17; TEMP 97.8; O2SAT 96
[2016-07-24] MEDS: VANCOMYCIN INJ 1,250 MG in SODIUM CHLOR 0.9% 250 ML INJ 250 ML IV SCH ×2 (13:26→23:08)
--- NOTE | 2016-07-24 14:31 | PD.CARD.PN ---
Subjective Subjective Remarks alert in nad Objective Vital Signs / I&O Vital Signs Date Time Temp Pulse Resp B/P Pulse Ox O2 Delivery O2 Flow Rate FiO2 07/24/16 12:00 97.8 93 17 153/72 96 07/24/16 08:00 96.9 104 19 166/88 93 07/23/16 23:46 97.1 98 20 123/77 94 07/23/16 20:00 96.7 99 20 133/61 93 07/23/16 16:00 95.6 93 19 155/80 97 I/O 07/23/16 07/23/16 07/23/16 07/24/16 07/24/16 07/24/16 06:59 14:59 22:59 06:59 14:59 22:59 Intake Total 835 ml 935 ml 865 ml 790 ml 202 ml Output Total 1610 ml 770 ml 470 ml 1775 ml Balance -775 ml 165 ml 395 ml -985 ml 202 ml Intake Oral 320 ml 300 ml 240 ml 240 ml IV Total 515 ml 635 ml 625 ml 550 ml 202 ml Output Urine Total 1500 ml 650 ml 350 ml 1650 ml Drainage Total 110 ml 120 ml 120 ml 125 ml # Bowel Movements 0 0 0 0 Laboratory GENERAL: SKIN: Warm and dry. HEAD: Normocephalic. EYES: No scleral icterus. No injection or drainage. NECK: Supple, trachea midline. No JVD or lymphadenopathy. CARDIOVASCULAR: Regular rate and rhythm without murmurs, gallops, or rubs. RESPIRATORY: Breath sounds equal bilaterally. No accessory muscle use. GASTROINTESTINAL: Abdomen soft, non-tender, nondistended. MUSCULOSKELETAL: No cyanosis, or edema. BACK: Nontender without obvious deformity. No CVA tenderness. Laboratory Tests Test 07/24/16 03:33 White Blood Count 15.7 TH/MM3 Red Blood Count 4.38 MIL/MM3 Hemoglobin 12.2 GM/DL Hematocrit 37.8 % Mean Corpuscular Volume 86.5 FL Mean Corpuscular Hemoglobin 27.8 PG Mean Corpuscular Hemoglobin 32.2 % Concent Red Cell Distribution Width 14.4 % Platelet Count 450 TH/MM3 Mean Platelet Volume 7.4 FL Sodium Level 138 MEQ/L Potassium Level 3.5 MEQ/L Chloride Level 101 MEQ/L Carbon Dioxide Level 29.2 MEQ/L Anion Gap 8 MEQ/L Blood Urea Nitrogen 4 MG/DL Creatinine 0.40 MG/DL Estimat Glomerular Filtration 155 ML/MIN Rate Random Glucose 87 MG/DL Calcium Level 9.2 MG/DL Assessment and Plan Problem List: (1) Pacemaker (2) CAD (coronary artery disease) Assessment and Plan 1.) CAD - aspirin held due to possible surgery, assymptomatic from cv standpoint , restart aspirin when cleared by surgery Problem Qualifiers (1) CAD (coronary artery disease): Qualified Code: I25.10 - Coronary artery disease involving [place] coronary artery of [place] heart without angina pectoris Rafi Mcadams MD July 24, 2016 14:31
--- NOTE | 2016-07-24 14:57 | HHI.IDPN ---
Note Infectious Disease Note Patient is complaining of severe knee pains. No chills. No fever. Reviewed info from hospitalization in May 2016. Patient had r. knee effusion. PAST MEDICAL HISTORY: 1. Coronary artery disease. 2. Hyperlipidemia. 3. Congestive heart failure. 4. Chronic obstructive pulmonary disease. 5. Hypertension. 6. Osteoarthritis. 7. Thyroid disease. 8. Pacemaker. 9. Hysterectomy. ALLERGIES: 1. TORADOL. 2. TRAMADOL. 3. CODEINE. MEDICATIONS: 1. Vancomycin. 2. Ampicillin / sulbactam. OBJECTIVE: Vital Signs Date Time Temp Pulse Resp B/P Pulse Ox O2 Delivery O2 Flow Rate FiO2 07/24/16 12:00 97.8 93 17 153/72 96 07/24/16 08:00 96.9 104 19 166/88 93 07/23/16 23:46 97.1 98 20 123/77 94 07/23/16 20:00 96.7 99 20 133/61 93 07/23/16 16:00 95.6 93 19 155/80 97 07/23/16 07/23/16 07/24/16 15:00 23:00 07:00 Intake Total 935 ml 865 ml 790 ml Output Total 770 ml 470 ml 1775 ml Balance 165 ml 395 ml -985 ml Intake Oral 300 ml 240 ml 240 ml IV Total 635 ml 625 ml 550 ml Output Urine Total 650 ml 350 ml 1650 ml Drainage Total 120 ml 120 ml 125 ml # Bowel Movements 0 0 0 Laboratory Tests Test 07/24/16 03:33 White Blood Count 15.7 TH/MM3 Red Blood Count 4.38 MIL/MM3 Hemoglobin 12.2 GM/DL Hematocrit 37.8 % Mean Corpuscular Volume 86.5 FL Mean Corpuscular Hemoglobin 27.8 PG Mean Corpuscular Hemoglobin 32.2 % Concent Red Cell Distribution Width 14.4 % Platelet Count 450 TH/MM3 Mean Platelet Volume 7.4 FL Laboratory Tests Test 07/24/16 03:33 Sodium Level 138 MEQ/L Potassium Level 3.5 MEQ/L Chloride Level 101 MEQ/L Carbon Dioxide Level 29.2 MEQ/L Anion Gap 8 MEQ/L Blood Urea Nitrogen 4 MG/DL Creatinine 0.40 MG/DL Estimat Glomerular Filtration 155 ML/MIN Rate Random Glucose 87 MG/DL Calcium Level 9.2 MG/DL Microbiology Date/Time Procedure Status Source Growth 07/23/16 15:45 Gram Stain - Final Resulted Wound Gallbladder 07/23/16 15:45 Wound Culture - Preliminary Resulted Wound Gallbladder NO GROWTH IN 24 HOURS. 07/23/16 18:10 Aerobic Blood Culture - Preliminary Resulted Blood Peripheral NO GROWTH IN 1 DAY 07/23/16 18:10 Anaerobic Blood Culture - Preliminary Resulted Blood Peripheral NO GROWTH IN 1 DAY 07/23/16 18:25 Aerobic Blood Culture - Preliminary Resulted Blood Peripheral NO GROWTH IN 1 DAY 07/23/16 18:25 Anaerobic Blood Culture - Preliminary Resulted Blood Peripheral NO GROWTH IN 1 DAY PHYSICAL EXAMINATION: GENERAL: No acute distress. She is awake, alert and oriented. HEAD, EYES, EARS, NOSE, THROAT: Head is atraumatic. Extraocular movements grossly intact. Pupils reactive to light. No icterus. Oropharynx with moist mucosa without lesions. NECK: The neck is supple. No swelling. No adenopathy. No tenderness. LUNGS: Clear to auscultation. HEART: Regular S1-S2. No murmurs, rubs or gallops. ABDOMEN: Bowel sounds present, soft. Mild tenderness around the right upper quadrant. No rebound. EXTREMITIES: Swelling of the right knee. Mild warmth. No erythema. The rest of the extremities have no clubbing, cyanosis or edema. SKIN: No rash. NEUROLOGIC: No gross focal findings. IMPRESSION: 1. Bacteremia due to Staphylococcus epidermidis, unclear etiology. 2. Acalculous cholecystitis. Patient is status post percutaneous cholecystostomy tube placement. 3. Right knee pain. Recent aspiration of fluid from the right knee. RECOMMENDATIONS: 1. Repeat the blood culture. 2. Obtain fluid from the cholecystostomy drainage for culture. 3. Continue vancomycin. 4. Stop ampicillin / sulbactam. 5. Monitor clinical status. 6. Agree with ortho consult. The blood cultures reveal three of four bottles positive, and despite being Staph epidermidis, because of the presence of the bacteria in three bottles, it is probably less likely to be contamination and therefore additional workup as outlined above will be pursued. Romario De La Cruz MD July 24, 2016 14:57
--- NOTE | 2016-07-24 15:16 | HHI.PR ---
Subjective Subjective Notes Reports abdominal pain much improved but has severe RIGHT knee pain Upset that she cannot sleep at night Objective Vitals/I&O Vital Signs Date Time Temp Pulse Resp B/P Pulse Ox O2 Delivery O2 Flow Rate FiO2 07/24/16 12:00 97.8 93 17 153/72 96 Labs Laboratory Tests Test 07/24/16 03:33 White Blood Count 15.7 Red Blood Count 4.38 Hemoglobin 12.2 Hematocrit 37.8 Mean Corpuscular Volume 86.5 Mean Corpuscular Hemoglobin 27.8 Mean Corpuscular Hemoglobin 32.2 Concent Red Cell Distribution Width 14.4 Platelet Count 450 Mean Platelet Volume 7.4 Sodium Level 138 Potassium Level 3.5 Chloride Level 101 Carbon Dioxide Level 29.2 Anion Gap 8 Blood Urea Nitrogen 4 Creatinine 0.40 Estimat Glomerular Filtration 155 Rate Random Glucose 87 Calcium Level 9.2 Date/Time Procedure Status Source Growth 07/23/16 18:25 Aerobic Blood Culture - Preliminary Resulted Blood Peripheral NO GROWTH IN 1 DAY 07/23/16 18:25 Anaerobic Blood Culture - Preliminary Resulted Blood Peripheral NO GROWTH IN 1 DAY 07/23/16 15:45 Gram Stain - Final Resulted Wound Gallbladder 07/23/16 15:45 Wound Culture - Preliminary Resulted Wound Gallbladder NO GROWTH IN 24 HOURS. 07/19/16 17:00 Aerobic Blood Culture - Final Complete Blood Line Staphylococcus Epidermidis 07/19/16 17:00 Anaerobic Blood Culture - Final Complete Blood Line NO GROWTH IN 5 DAYS Radiology Last Impressions Percutaneous Cholangiogram 07/21/16 0000 Signed Impressions: Service Date/Time: Thursday, July 21, 2016 16:49 - CONCLUSION: Uncomplicated percutaneous cholecystostomy as above. José Miguel Harris MD Hepatobiliary Scan Nuclear Medicine 07/21/16 0000 Signed Impressions: Service Date/Time: Thursday, July 21, 2016 09:05 - CONCLUSION: Nonvisualization gallbladder one hour and 30 minutes. Carloz Kiser MD FACRADDENDUM: 24 hour delayed imaging demonstrates radiotracer within the bowel. No uptake in the gallbladder. Demarcus Hanley MD Gall Bladder Ultrasound 07/19/16 6815 Signed Impressions: Service Date/Time: Tuesday, July 19, 2016 17:11 - CONCLUSION: Limited exam with trace free fluid. Echogenic liver. No definite gallstones. Carloz Kiser MD FACR Knee X-Ray 07/19/16 1440 Signed Impressions: Service Date/Time: Tuesday, July 19, 2016 15:28 - CONCLUSION: Severe osteoarthritis. Small effusion without fracture. Demarcus Hanley MD Chest X-Ray 07/19/16 0000 Signed Impressions: Service Date/Time: Tuesday, July 19, 2016 16:35 - CONCLUSION: No acute disease. AICD appear stable José Miguel Harris MD Cardiovascular: Regular Lungs: Clear Abdomen: Other (callie tube in place with dark bile in collection bag ) Extremities: Other (see below) Narrative Exam RIGHT knee swelling A/P Problem List: (1) Abnormal biliary HIDA scan (2) Acute acalculous cholecystitis (3) cystic duct obstruction (4) Cholecystostomy care (5) CAD (coronary artery disease) (6) Chest pain of uncertain etiology (7) Pacemaker Assessment and Plan 75 year old female with acute cholecystitis -Cholecystostomy tube placed---continue to collection drainage bag -Heart healthy diet -Antibiotics -Primary ordered consult to Orthopedics for RIGHT knee Attending Statement patient seen at bedside abd pain better with tube but knee pain still severe f/u ortho recs Attestation The exam, history, and the medical decision-making described in the above note were completed with the assistance of the mid-level provider. I reviewed and agree with the findings presented. I attest that I had a [id number] encounter with the patient on the same day, and personally performed and documented my assessment and findings in the medical record. Problem Qualifiers (1) CAD (coronary artery disease): Qualified Code: I25.10 - Coronary artery disease involving [place] coronary artery of [place] heart without angina pectoris Cecily Dietz July 24, 2016 15:16 Sherif Mancuso MD August 06, 2016 15:22
[2016-07-24 16:00] VITALS: BP 141/75; PULSE 88; RESP 16; TEMP 97.4; O2SAT 97
[2016-07-24] MEDS: SODIUM CHLOR 0.45% 1000 ML INJ 1,000 ML IV SCH (16:46)
[2016-07-24 20:00] VITALS: BP_SYST 139; BP_SYST 148; BP_DIAS 65; BP_DIAS 71; PULSE 74; PULSE 88; RESP 18; RESP 20; TEMP 97.1; TEMP 97.8; O2SAT 97; O2SAT 98
[2016-07-25] VITALS: BP 153/77; PULSE 85; RESP 20; TEMP 98; O2SAT 94
[2016-07-25] MEDS: TEMAZEPAM 15 MG CAP PO PRN ×2 (01:22→21:06)
[2016-07-25] MEDS ORDERED: BETAMETHASONE SOD PHOS/ACETATE SUSP 30 MG/5 ML VIAL IM ONE (06:30)
[2016-07-25] MEDS ORDERED: LIDOCAINE HCL 0.5% PF 50 ML VIAL OTHER ONE (06:30)
[2016-07-25] MEDS ORDERED: ETHYL CHLORIDE AER SPR 120 ML CAN TOPICAL ONE (06:30)
[2016-07-25] MEDS: HYDROmorphone HCL PF 1 MG/ML VIAL IV PRN ×6 (06:31→21:08)
--- NOTE | 2016-07-25 06:46 | PD.ORT.PN ---
Subjective Subjective Remarks States that she has had pain in her right knee for many years. She is unable to ambulate and difficulty with pain with movement. She has pain with movement of the hip as well as with the knee. She does appear to have some shortening of the right lower extremity. Objective Vitals Vital Signs Date Time Temp Pulse Resp B/P Pulse Ox O2 Delivery O2 Flow Rate FiO2 07/25/16 00:00 98.0 85 20 153/77 94 07/24/16 21:58 98 Nasal Cannula 2.00 07/24/16 20:00 97.8 88 18 148/65 98 07/24/16 16:00 97.4 88 16 141/75 97 07/24/16 12:00 97.8 93 17 153/72 96 07/24/16 08:00 96.9 104 19 166/88 93 I/O 07/24/16 07/24/16 07/24/16 07/25/16 07/25/16 07/25/16 06:59 14:59 22:59 06:59 14:59 22:59 Intake Total 790 ml 802 ml 832 ml 386 ml Output Total 1775 ml 720 ml 990 ml 110 ml Balance -985 ml 82 ml -158 ml 276 ml Intake Oral 240 ml 600 ml 240 ml IV Total 550 ml 202 ml 592 ml 386 ml Output Urine Total 1650 ml 600 ml 850 ml Drainage Total 125 ml 120 ml 140 ml 110 ml # Bowel Movements 0 0 0 Result Diagram: 07/24/16 0333 07/24/16 0333 Imaging Last 72 hours Impressions Knee X-Ray 07/23/16 0000 Signed Impressions: Service Date/Time: Saturday, July 23, 2016 11:15 - CONCLUSION: 1. Severe osteoarthritis. 2. Joint effusion. Demarcus Hanley MD Objective Remarks Right lower extremity: Pain with gentle motion with internal/external rotation of the hip. Skin is intact with no erythema over the knee. Joint effusion present with tenderness to palpation as well as movement of the knee. Distally she has intact sensation with good capillary refill strong dorsiflexion and plantar flexion of foot Assessment & Plan Assessment and Plan Severe osteoarthritis of right knee X-ray this morning to rule out right hip fracture. If negative aspiration with injection of steroid of the right knee will be performed Nothing by mouth - if hip x-rays are negative we will resume diet Saul Martinez Jr. July 25, 2016 06:46
[2016-07-25] MEDS: SODIUM CHLOR 0.45% 1000 ML INJ 1,000 ML IV SCH ×2 (07:21→20:43)
[2016-07-25 08:00] VITALS: BP 137/65; PULSE 89; RESP 16; TEMP 96.7; O2SAT 93
[2016-07-25] MEDS: HEPARIN SODIUM - SQ 10,000 UNITS/ML VIAL SQ SCH ×2 (08:00→20:37)
--- NOTE | 2016-07-25 08:15 | MB ---
cc: NAVEEN MOTLEY DATE OF ADMISSION 07/19/2016 DATE OF CONSULTATION 07/25/2016 REASON FOR CONSULTATION Right knee pain. HISTORY Nasrin is a 75-year-old female who has multiple medical problems. She was previously admitted to [facility] for her right knee. She reports that she had her knee aspirated but there was no sign of infection. She has a longstanding history of right knee osteoarthritis. She has been complaining of severe pain for several days. The pain is worse when she walks. She is having difficulty ambulating. She is currently awake and alert on the seventh floor. She denies any recent falls or injuries to her knee. She feels popping and catching when she moves her knee. The pain is improved with rest. PAST MEDICAL HISTORY ILLNESSES 1. Coronary artery disease. 2. High cholesterol. 3. CHF. 4. COPD. 5. Hypertension. 6. Osteoarthritis. 7. Hypothyroidism. SURGERIES 1. Pacemaker placement, AICD. 2. Hysterectomy ALLERGIES CODEINE. TRAMADOL. TORADOL. MEDICATIONS 1. Paxil. 2. Pravastatin. Please cm EMR for complete list of inpatient medications. SOCIAL HISTORY The patient lives with her daughter. She denies alcohol, tobacco or drug use. FAMILY HISTORY Noncontributory. REVIEW OF SYSTEMS The patient denies headache, visual changes, neck pain, chest pain, shortness of breath, abdominal pain, nausea, vomiting or recent weight loss. She complains of right knee pain. The pain is worse with movement. PHYSICAL EXAMINATION GENERAL: The patient is a well-developed, well-nourished 75-year female who is awake and alert. She is alert and oriented x 3. She appears well-developed and well-nourished. She is mildly overweight. VITAL SIGNS: Temperature 98.0, pulse 85, respirations 20, blood pressure 153/77, O2 sat 94% on 2 liters nasal cannula. HEAD: The patient is normocephalic. EYES: Pupils are equal. NECK: Soft, nontender. Trachea is midline. ABDOMEN: Soft, nontender, nondistended. EXTREMITIES: Examination of bilateral upper extremities reveals no pain with shoulder, elbow or wrist motion. She has intact sensation of all fingers. She has good capillary refill in all fingers. Radial pulses are palpable. Skin is intact in both hands. Examination of left leg reveals no pain with hip, knee or ankle motion. Skin is intact. Dorsalis pedis pulses palpable. Sensation intact. Examination of the right leg reveals diffuse tenderness around her hip. She also has significant tenderness around her knee. She has crepitus with knee range of motion. Her knee is stable to varus and valgus stresses. Skin is intact. Dorsalis pedis pulses palpable. Sensation is intact in the right foot. X-RAYS X-rays of the right knee were reviewed. X-rays reveal severe tricompartmental osteoarthritis. IMPRESSION 1. COPD. 2. Coronary artery disease. 3. Hypertension. 4. Severe right knee osteoarthritis. PLAN The treatment options were discussed with the patient. At this point I am going to obtain x-ray of her right hip to further evaluate her hip pain. In regards to her right knee osteoarthritis, I would recommend a steroid injection to help with the pain. The risks, benefits of injection were discussed in-depth with the patient. The risks include bleeding, infection, recurrence of pain, as well as change in blood sugars and weight gain. All questions were answered. Myself or my physician transition assistant, Clifford Martinez PA-C, will perform a steroid injection of her right knee today if her hip x-rays are negative for fracture. All questions were answered. A mid-level provider in my office, nurse practitioner or PA, may see this patient on a follow-up basis and continue to implement the objective of this plan including: Starting or adjusting medications, injections of muscle, tendon, bursa or joints, cast application, orthotic or brace application, physical therapy, further radiographic studies including x-ray, MRI, CT, ultrasounds or bone scan, vascular studies, neurologic studies, or other specialist consultations, and proceeding with surgical management as appropriate. MD FRANCISCA Gillis/[place] /7:51 AM /8:05 AM JOHN
[2016-07-25] MEDS: PARoxetine HCL 20 MG TAB PO SCH (08:25)
[2016-07-25] MEDS: ONDANSETRON HCL 4 MG/2 ML VIAL IVP PRN (08:47)
--- NOTE | 2016-07-25 09:44 | RADRPT ---
EXAM DATE/TIME: 07/25/2016 09:19 [facility] COMPARISON: No previous studies available for comparison. INDICATIONS : Right hip/pelvic pain post fall approximately 1 month ago. MEDICAL HISTORY : Congestive heart failure. Hypercholesterolemia. Thyroid disease. Chest pain. Irregular heartbeat. HTN . COPD. SURGICAL HISTORY : Pacemaker. Hysterectomy. Arthroscopic right knee ENCOUNTER: Subsequent ACUITY: 1 month PAIN SCORE: 10/10 LOCATION: Right hip/pelvis FINDINGS: There is no evidence of acute fracture. Bony mineralization is normal. There is osteoarthritis involv ing the sacroiliac joints bilaterally. CONCLUSION: 1. There is no evidence of acute fracture. Hussein Allen MD on July 25, 2016 at 9:32 Board Certified Radiologist. This report was verified electronically.
--- NOTE | 2016-07-25 10:31 | PD.ORT.PN ---
Subjective Subjective Remarks Patient has been nothing by mouth x-rays were obtained of the right hip. Patient is sitting bedside with aid getting cleaned up X-rays are negative for hip fracture and due to septic arthritis of the right knee, consents are obtained to aspirate and inject Celestone into knee joint Objective Vitals Vital Signs Date Time Temp Pulse Resp B/P Pulse Ox O2 Delivery O2 Flow Rate FiO2 07/25/16 08:00 96.7 89 16 137/65 93 07/25/16 00:00 98.0 85 20 153/77 94 07/24/16 21:58 98 Nasal Cannula 2.00 07/24/16 20:00 97.8 88 18 148/65 98 07/24/16 16:00 97.4 88 16 141/75 97 07/24/16 12:00 97.8 93 17 153/72 96 I/O 07/24/16 07/24/16 07/24/16 07/25/16 07/25/16 07/25/16 07:00 15:00 23:00 07:00 15:00 23:00 Intake Total 790 ml 802 ml 832 ml 386 ml 240 ml Output Total 1775 ml 720 ml 990 ml 110 ml 400 ml Balance -985 ml 82 ml -158 ml 276 ml -160 ml Intake Oral 240 ml 600 ml 240 ml 240 ml IV Total 550 ml 202 ml 592 ml 386 ml Output Urine Total 1650 ml 600 ml 850 ml 400 ml Drainage Total 125 ml 120 ml 140 ml 110 ml # Bowel Movements 0 0 0 0 Result Diagram: 07/24/16 0333 07/24/16 0333 Imaging Last 72 hours Impressions Knee X-Ray 07/23/16 0000 Signed Impressions: Service Date/Time: Saturday, July 23, 2016 11:15 - CONCLUSION: 1. Severe osteoarthritis. 2. Joint effusion. Demarcus Hanley MD Objective Remarks Right lower extremity: Sitting at bedside has significant crepitus and pain through range of motion of the right knee. No erythema or warmth. Distally neurovascularly intact with strong dorsiflexion and plantar flexion of foot Assessment & Plan Assessment and Plan Severe osteoarthritis of right knee Informed consent is obtained for injection of steroid into right knee and sitting bedside with the knee at 90 her knee is sterilely prepped with alcohol and chlorhexidine prep. 2 cc of lidocaine and 2 cc of Celestone are sterilely drawn and using sterile technique is injected into the lateral compartment of the right knee. Patient tolerates procedure well. Bandages placed upon. Range of motion of the knee is achieved with significant crepitus and some improved pain. Physical therapy for weightbearing as tolerated Resume diet No further orthopedic intervention at this time. Due to significant arthritis of knee steroid injection could be performed in 3-4 months if pain resumes Saul Martinez Jr. July 25, 2016 10:31
--- NOTE | 2016-07-25 11:11 | HHI.PR ---
Subjective Subjective Notes Resting in bed Abdominal pain resolved Complains of severe pain of RIGHT knee Objective Vitals/I&O Vital Signs Date Time Temp Pulse Resp B/P Pulse Ox O2 Delivery O2 Flow Rate FiO2 07/25/16 08:00 96.7 89 16 137/65 93 07/24/16 21:58 Nasal Cannula 2.00 Labs Date/Time Procedure Status Source Growth 07/23/16 18:25 Aerobic Blood Culture - Preliminary Resulted Blood Peripheral NO GROWTH IN 1 DAY 07/23/16 18:25 Anaerobic Blood Culture - Preliminary Resulted Blood Peripheral NO GROWTH IN 1 DAY 07/23/16 15:45 Gram Stain - Final Resulted Wound Gallbladder 07/23/16 15:45 Wound Culture - Preliminary Resulted Wound Gallbladder NO GROWTH IN 48 HOURS. Radiology Last Impressions Percutaneous Cholangiogram 07/21/16 0000 Signed Impressions: Service Date/Time: Thursday, July 21, 2016 16:49 - CONCLUSION: Uncomplicated percutaneous cholecystostomy as above. José Miguel Harris MD Hepatobiliary Scan Nuclear Medicine 07/21/16 0000 Signed Impressions: Service Date/Time: Thursday, July 21, 2016 09:05 - CONCLUSION: Nonvisualization gallbladder one hour and 30 minutes. Carloz Kiser MD FACRADDENDUM: 24 hour delayed imaging demonstrates radiotracer within the bowel. No uptake in the gallbladder. Demarcus Hanley MD Gall Bladder Ultrasound 07/19/16 1655 Signed Impressions: Service Date/Time: Tuesday, July 19, 2016 17:11 - CONCLUSION: Limited exam with trace free fluid. Echogenic liver. No definite gallstones. Carloz Kiser MD FACR Knee X-Ray 07/19/16 1440 Signed Impressions: Service Date/Time: Tuesday, July 19, 2016 15:28 - CONCLUSION: Severe osteoarthritis. Small effusion without fracture. Demarcus Hanley MD Chest X-Ray 07/19/16 0000 Signed Impressions: Service Date/Time: Tuesday, July 19, 2016 16:35 - CONCLUSION: No acute disease. AICD appear stable José Miguel Harris MD Cardiovascular: Regular Lungs: Clear Abdomen: Non-distended, Other (callie tube in place draining dark bile; tenderness at insertion site otherwise no tenderness ) Extremities: Other (see below ) Narrative Exam RIGHT knee swelling A/P Problem List: (1) Abnormal biliary HIDA scan (2) Acute acalculous cholecystitis (3) cystic duct obstruction (4) Cholecystostomy care (5) CAD (coronary artery disease) (6) Chest pain of uncertain etiology (7) Pacemaker Assessment and Plan 75 year old female with acute cholecystitis -Cholecystostomy tube placed---continue to collection drainage bag -Heart healthy diet -Antibiotics -Orthopedics following for RIGHT knee---plans for XR and steroid injection today -CM consult -GS will follow peripherally Attending Statement patient seen at bedside still requiring medical mgnt stable from surgery stand point Attestation The exam, history, and the medical decision-making described in the above note were completed with the assistance of the mid-level provider. I reviewed and agree with the findings presented. I attest that I had a [id number] encounter with the patient on the same day, and personally performed and documented my assessment and findings in the medical record. Problem Qualifiers (1) CAD (coronary artery disease): Qualified Code: I25.10 - Coronary artery disease involving [place] coronary artery of [place] heart without angina pectoris Cecily Dietz July 25, 2016 11:11 Sherif Mancuso MD August 06, 2016 15:32
[2016-07-25 12:00] VITALS: BP 135/63; PULSE 95; RESP 18; TEMP 97; O2SAT 96
[2016-07-25] MEDS: VANCOMYCIN INJ 1,500 MG in SODIUM CHLORID 0.9% 500 ML INJ 500 ML IV SCH (12:00)
--- NOTE | 2016-07-25 12:43 | HHI.PR ---
Subjective Remarks resting in bed, stressed over outside issues tearful, afebrile (Tita Esteban) Objective Objective Results - Vital Signs Date Time Temp Pulse Resp B/P Pulse Ox O2 Delivery O2 Flow Rate FiO2 07/25/16 12:00 97.0 95 18 135/63 96 07/25/16 08:00 96.7 89 16 137/65 93 07/25/16 00:00 98.0 85 20 153/77 94 07/24/16 21:58 98 Nasal Cannula 2.00 07/24/16 20:00 97.8 88 18 148/65 98 07/24/16 16:00 97.4 88 16 141/75 97 I/O 07/24/16 07/24/16 07/24/16 07/25/16 07/25/16 07/25/16 07:00 15:00 23:00 07:00 15:00 23:00 Intake Total 790 ml 802 ml 832 ml 386 ml 240 ml Output Total 1775 ml 720 ml 990 ml 110 ml 400 ml Balance -985 ml 82 ml -158 ml 276 ml -160 ml Intake Oral 240 ml 600 ml 240 ml 240 ml IV Total 550 ml 202 ml 592 ml 386 ml Output Urine Total 1650 ml 600 ml 850 ml 400 ml Drainage Total 125 ml 120 ml 140 ml 110 ml # Bowel Movements 0 0 0 0 (Tita Esteban) Result Diagram: 07/24/16 0333 07/24/16 0333 ROS General: Fatigue, Weakness, Other (10 point ROS done, positives noted) GI: Abdominal Pain (at callie tube site, soreness) Neuro/MS: Other (rt. knee pain, ) (Tita Esteban) Physical Exam Physical Exam PHYSICAL EXAMINATION GENERAL: This is an obese elderly female resting in bed,. She is alert , anxious HEAD: Normocephalic without any lesion or mass noted. Facial features appear symmetric. OROPHARYNGEAL: Oropharynx without erythema or edema. NECK: Supple. No nuchal rigidity or lymphadenopathy. Trachea midline without deviation. CARDIAC: Regular rhythm, regular rate, S1 and S2 are heard. LUNGS: Clear to auscultation bilaterally. low volumes No use of accessory muscles on inspiration or expiration. ABDOMEN: Soft, apin minimal today, callie tube in for drainage, dark green fluid Bowel sounds active No rebound. No guarding. EXTREMITIES: rt. knee edema. Pulses equal bilateral. NEUROLOGICAL: Patient mood and affect anxious. No focal deficit SKIN:Warm and moist (Tita Esteban) A/P Assessment and Plan (1) Cholecystitis (2) Right flank tenderness (3) cystic duct obstruction (4) Pacemaker (5) CAD (coronary artery disease) (6) Anxiety (7) Right knee pain (8) Osteoarthritis Assessment/Plan Labs reviewed, monitor LFTs, leukocytosis Slight anemia improved orthopedic consult for severe right knee pain steroid injection today, elevated Will add NSAIDs for pain and swelling of right knee Continue IV analgesics on a when necessary basis anxiety, outside issues, supportive care. Restoril for sleep on as-needed basis Appreciate infectious disease consult for bacteremia Continue antibiotics per ID Appreciate surgical input. Discussed the surgeon on the floor Cholecystostomy tube placed---continue to collection drainage bag -Heart healthy diet -Antibiotics Appreciate invasive radiology help. Status post cholecystostomy Analgesics when necessary for pain in abdomen and knee joint. 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
--- NOTE | 2016-07-25 14:56 | HHI.IDPN ---
Note Infectious Disease Note Patient is complaining of severe knee pains. Had steroid injection into right knee today. Got up to side of bed x 2 and thinks that is improvement. No chills. No fever. WBC increased. PAST MEDICAL HISTORY: 1. Coronary artery disease. 2. Hyperlipidemia. 3. Congestive heart failure. 4. Chronic obstructive pulmonary disease. 5. Hypertension. 6. Osteoarthritis. 7. Thyroid disease. 8. Pacemaker. 9. Hysterectomy. ALLERGIES: 1. TORADOL. 2. TRAMADOL. 3. CODEINE. MEDICATIONS: 1. Vancomycin. OBJECTIVE: Vital Signs Date Time Temp Pulse Resp B/P Pulse Ox O2 Delivery O2 Flow Rate FiO2 07/25/16 12:00 97.0 95 18 135/63 96 07/25/16 08:00 96.7 89 16 137/65 93 07/25/16 00:00 98.0 85 20 153/77 94 07/24/16 21:58 98 Nasal Cannula 2.00 07/24/16 20:00 97.8 88 18 148/65 98 07/24/16 16:00 97.4 88 16 141/75 97 07/24/16 07/24/16 07/25/16 15:00 23:00 07:00 Intake Total 802 ml 832 ml 386 ml Output Total 720 ml 990 ml 110 ml Balance 82 ml -158 ml 276 ml Intake Oral 600 ml 240 ml IV Total 202 ml 592 ml 386 ml Output Urine Total 600 ml 850 ml Drainage Total 120 ml 140 ml 110 ml # Bowel Movements 0 0 Laboratory Tests Test 07/24/16 03:33 White Blood Count 15.7 TH/MM3 Red Blood Count 4.38 MIL/MM3 Hemoglobin 12.2 GM/DL Hematocrit 37.8 % Mean Corpuscular Volume 86.5 FL Mean Corpuscular Hemoglobin 27.8 PG Mean Corpuscular Hemoglobin 32.2 % Concent Red Cell Distribution Width 14.4 % Platelet Count 450 TH/MM3 Mean Platelet Volume 7.4 FL Laboratory Tests Test 07/24/16 03:33 Sodium Level 138 MEQ/L Potassium Level 3.5 MEQ/L Chloride Level 101 MEQ/L Carbon Dioxide Level 29.2 MEQ/L Anion Gap 8 MEQ/L Blood Urea Nitrogen 4 MG/DL Creatinine 0.40 MG/DL Estimat Glomerular Filtration 155 ML/MIN Rate Random Glucose 87 MG/DL Calcium Level 9.2 MG/DL Microbiology Date/Time Procedure Status Source Growth 07/23/16 15:45 Gram Stain - Final Resulted Wound Gallbladder 07/23/16 15:45 Wound Culture - Preliminary Resulted Wound Gallbladder NO GROWTH IN 48 HOURS. 07/23/16 18:10 Aerobic Blood Culture - Preliminary Resulted Blood Peripheral NO GROWTH IN 2 DAYS 07/23/16 18:10 Anaerobic Blood Culture - Preliminary Resulted Blood Peripheral NO GROWTH IN 2 DAYS 07/23/16 18:25 Aerobic Blood Culture - Preliminary Resulted Blood Peripheral NO GROWTH IN 2 DAYS 07/23/16 18:25 Anaerobic Blood Culture - Preliminary Resulted Blood Peripheral NO GROWTH IN 2 DAYS Last Impressions Pelvis X-Ray 07/25/16 0000 Signed Impressions: Service Date/Time: Monday, July 25, 2016 09:19 - CONCLUSION: 1. There is no evidence of acute fracture. Hussein Allen MD Knee X-Ray 07/23/16 0000 Signed Impressions: Service Date/Time: Saturday, July 23, 2016 11:15 - CONCLUSION: 1. Severe osteoarthritis. 2. Joint effusion. Demarcus Hanley MD Percutaneous Cholangiogram 07/21/16 0000 Signed Impressions: Service Date/Time: Thursday, July 21, 2016 16:49 - CONCLUSION: Uncomplicated percutaneous cholecystostomy as above. José Miguel Harris MD Hepatobiliary Scan Nuclear Medicine 07/21/16 0000 Signed Impressions: Service Date/Time: Thursday, July 21, 2016 09:05 - CONCLUSION: Nonvisualization gallbladder one hour and 30 minutes. Carloz Kiser MD FACRADDENDUM: 24 hour delayed imaging demonstrates radiotracer within the bowel. No uptake in the gallbladder. Demarcus Hanley MD Gall Bladder Ultrasound 07/19/16 1655 Signed Impressions: Service Date/Time: Tuesday, July 19, 2016 17:11 - CONCLUSION: Limited exam with trace free fluid. Echogenic liver. No definite gallstones. Carloz Kiser MD FACR Chest X-Ray 07/19/16 0000 Signed Impressions: Service Date/Time: Tuesday, July 19, 2016 16:35 - CONCLUSION: No acute disease. AICD appear stable José Miguel Harrsi MD PHYSICAL EXAMINATION: GENERAL: No acute distress. She is awake, alert and oriented. HEAD, EYES, EARS, NOSE, THROAT: Head is atraumatic. Extraocular movements grossly intact. Pupils reactive to light. No icterus. Oropharynx with moist mucosa without lesions. NECK: The neck is supple. No swelling. No adenopathy. No tenderness. LUNGS: Clear to auscultation. HEART: Regular S1-S2. No murmurs, rubs or gallops. ABDOMEN: Bowel sounds present, soft. Mild tenderness around the right upper quadrant. No rebound. EXTREMITIES: Swelling of the right knee. Mild warmth. No erythema. The rest of the extremities have no clubbing, cyanosis or edema. SKIN: No rash. NEUROLOGIC: No gross focal findings. IMPRESSION: 1. Bacteremia due to Staphylococcus epidermidis, unclear etiology. 2. Acalculous cholecystitis. Patient is status post percutaneous cholecystostomy tube placement. Tube in place. 3. Right knee pain. Recent aspiration of fluid from the right knee. Steroid injected into R. knee today. 07/25. RECOMMENDATIONS: 1. Monitor the repeat blood culture. 2. Continue vancomycin. 3. Monitor clinical status. The blood cultures reveal three of four bottles positive, and despite being Staph epidermidis, because of the presence of the bacteria in three bottles, it is probably less likely to be contamination and therefore additional workup as outlined above will be pursued. Monitor WBC. Romario De La Cruz MD July 25, 2016 14:56
--- NOTE | 2016-07-25 15:08 | PD.CARD.PN ---
Subjective Subjective Remarks alert in mild distress, c/o knee pain Objective Vital Signs / I&O Vital Signs Date Time Temp Pulse Resp B/P Pulse Ox O2 Delivery O2 Flow Rate FiO2 07/25/16 12:00 97.0 95 18 135/63 96 07/25/16 08:00 96.7 89 16 137/65 93 07/25/16 00:00 98.0 85 20 153/77 94 07/24/16 21:58 98 Nasal Cannula 2.00 07/24/16 20:00 97.8 88 18 148/65 98 07/24/16 16:00 97.4 88 16 141/75 97 I/O 07/24/16 07/24/16 07/24/16 07/25/16 07/25/16 07/25/16 07:00 15:00 23:00 07:00 15:00 23:00 Intake Total 790 ml 802 ml 832 ml 386 ml 1121 ml Output Total 1775 ml 720 ml 990 ml 110 ml 775 ml Balance -985 ml 82 ml -158 ml 276 ml 346 ml Intake Oral 240 ml 600 ml 240 ml 720 ml IV Total 550 ml 202 ml 592 ml 386 ml 401 ml Output Urine Total 1650 ml 600 ml 850 ml 675 ml Drainage Total 125 ml 120 ml 140 ml 110 ml 100 ml # Bowel Movements 0 0 0 0 Physical Exam GENERAL: SKIN: Warm and dry. HEAD: Normocephalic. EYES: No scleral icterus. No injection or drainage. NECK: Supple, trachea midline. No JVD or lymphadenopathy. CARDIOVASCULAR: Regular rate and rhythm without murmurs, gallops, or rubs. RESPIRATORY: Breath sounds equal bilaterally. No accessory muscle use. GASTROINTESTINAL: Abdomen soft, non-tender, nondistended. MUSCULOSKELETAL: No cyanosis, or edema. BACK: Nontender without obvious deformity. No CVA tenderness. Assessment and Plan Problem List: (1) Pacemaker (2) CAD (coronary artery disease) Assessment and Plan 1.) CAD - aspirin held due to possible surgery, assymptomatic from cv standpoint , restart aspirin when cleared by surgery; rec pre op cath if surg recommended Problem Qualifiers (1) CAD (coronary artery disease): Qualified Code: I25.10 - Coronary artery disease involving [place] coronary artery of [place] heart without angina pectoris Rafi Mcadams MD July 25, 2016 15:08
[2016-07-25 20:00] VITALS: BP 123/59; PULSE 95; RESP 17; TEMP 96.6; O2SAT 97
[2016-07-26] VITALS: BP 129/68; PULSE 86; RESP 17; TEMP 96.2; O2SAT 97
[2016-07-26] MEDS: VANCOMYCIN INJ 1,500 MG in SODIUM CHLORID 0.9% 500 ML INJ 500 ML IV SCH ×2 (00:16→11:43)
[2016-07-26] MEDS: HYDROmorphone HCL PF 1 MG/ML VIAL IV PRN ×6 (05:53→21:50)
[2016-07-26 06:41] LABS: MEAN CELL VOLUME 86.8 FL (80.0-100.0); MEAN CORPUSCULAR HEMOGLOBIN 27.9 PG (27.0-34.0); MEAN CORPUSCULAR HGB CONC 32.1 % (32.0-36.0); PLATELET COUNT 369 TH/MM3 (150-450); RED BLOOD COUNT 4.37 MIL/MM3 (4.00-5.30); RED CELL DISTRIBUTION WIDTH 14.6 % (11.6-17.2); WHITE BLOOD COUNT 10.9 TH/MM3 (4.0-11.0)
[2016-07-26 06:47] LABS: REVIEW FLAG FINAL
[2016-07-26 07:09] LABS: BICARBONATE 31.1 MEQ/L (21.0-32.0); POTASSIUM 3.6 MEQ/L (3.5-5.1)
--- NOTE | 2016-07-26 07:57 | PD.ORT.PN ---
Subjective Subjective Remarks States the pain is improved some but still continues to have tenderness through range of motion of knee Objective Vitals Vital Signs Date Time Temp Pulse Resp B/P Pulse Ox O2 Delivery O2 Flow Rate FiO2 07/26/16 00:00 96.2 86 17 129/68 97 07/25/16 20:33 97 Nasal Cannula 2.00 07/25/16 20:00 96.6 95 17 123/59 97 07/25/16 12:00 97.0 95 18 135/63 96 07/25/16 08:00 96.7 89 16 137/65 93 I/O 07/25/16 07/25/16 07/25/16 07/26/16 07/26/16 07/26/16 07:00 15:00 23:00 07:00 15:00 23:00 Intake Total 386 ml 1121 ml 844 ml 862 ml Output Total 110 ml 775 ml 670 ml 470 ml Balance 276 ml 346 ml 174 ml 392 ml Intake Oral 720 ml 240 ml 240 ml IV Total 386 ml 401 ml 604 ml 622 ml Output Urine Total 675 ml 600 ml 350 ml Drainage Total 110 ml 100 ml 70 ml 120 ml # Bowel Movements 0 Result Diagram: 07/26/16 0558 07/26/16 0558 Imaging Last 72 hours Impressions Knee X-Ray 07/23/16 0000 Signed Impressions: Service Date/Time: Saturday, July 23, 2016 11:15 - CONCLUSION: 1. Severe osteoarthritis. 2. Joint effusion. Demarcus Hanley MD Objective Remarks Right lower extremity: Minimal pain with hip range of motion. Significant crepitus through range of motion of the knee with moderate tenderness. Distally intact sensation with good capillary refills. Strong dorsiflexion plantar flexion of foot Assessment & Plan Assessment and Plan Severe osteoarthritis of right knee Understands a steroid injection we'll take typically 24-48 hours to have full effect Physical therapy continue to work with range of motion and weightbearing activities We'll continue to follow but at this point no other orthopedic intervention planned Saul Martinez Jr. July 26, 2016 07:57
[2016-07-26 08:00] VITALS: BP 155/83; PULSE 89; RESP 17; TEMP 96.9; O2SAT 97
[2016-07-26] MEDS: ONDANSETRON HCL 4 MG/2 ML VIAL IVP PRN (08:02)
[2016-07-26] MEDS: HEPARIN SODIUM - SQ 10,000 UNITS/ML VIAL SQ SCH ×2 (08:02→21:52)
[2016-07-26] MEDS: PARoxetine HCL 20 MG TAB PO SCH (08:03)
[2016-07-26] MEDS: SODIUM CHLOR 0.45% 1000 ML INJ 1,000 ML IV SCH (08:03)
--- NOTE | 2016-07-26 10:19 | HHI.PR ---
Subjective Remarks Pt is lying on bed without any apparent distress watching TV Has some pain in her abdomen right upper quadrant, pain medications help and also has severe pain in her right knee for which she needed more pain medication. She has a physical therapy yesterday Has some cough with whitish sputum No other complaint. breathing better no chest pain no diaphoresis. No palpitations. Review of system for 10 point system otherwise unremarkable Objective Objective Results - Vital Signs Date Time Temp Pulse Resp B/P Pulse Ox O2 Delivery O2 Flow Rate FiO2 07/26/16 08:00 96.9 89 17 155/83 97 07/26/16 00:00 96.2 86 17 129/68 97 07/25/16 20:33 97 Nasal Cannula 2.00 07/25/16 20:00 96.6 95 17 123/59 97 07/25/16 12:00 97.0 95 18 135/63 96 I/O 07/25/16 07/25/16 07/25/16 07/26/16 07/26/16 07/26/16 07:00 15:00 23:00 07:00 15:00 23:00 Intake Total 386 ml 1121 ml 844 ml 862 ml Output Total 110 ml 775 ml 670 ml 470 ml Balance 276 ml 346 ml 174 ml 392 ml Intake Oral 720 ml 240 ml 240 ml IV Total 386 ml 401 ml 604 ml 622 ml Output Urine Total 675 ml 600 ml 350 ml Drainage Total 110 ml 100 ml 70 ml 120 ml # Bowel Movements 0 Result Diagram: 07/26/16 0558 07/26/16 0558 Other Results Laboratory Tests Test 07/26/16 05:58 White Blood Count 10.9 Red Blood Count 4.37 Hemoglobin 12.2 Hematocrit 38.0 Mean Corpuscular Volume 86.8 Mean Corpuscular Hemoglobin 27.9 Mean Corpuscular Hemoglobin 32.1 Concent Red Cell Distribution Width 14.6 Platelet Count 369 Mean Platelet Volume 6.8 Sodium Level 139 Potassium Level 3.6 Chloride Level 100 Carbon Dioxide Level 31.1 Anion Gap 8 Blood Urea Nitrogen 9 Creatinine 0.49 Estimat Glomerular Filtration 123 Rate Random Glucose 103 Calcium Level 8.8 Date/Time Procedure Status Source Growth 07/23/16 18:25 Aerobic Blood Culture - Preliminary Resulted Blood Peripheral NO GROWTH IN 2 DAYS 07/23/16 18:25 Anaerobic Blood Culture - Preliminary Resulted Blood Peripheral NO GROWTH IN 2 DAYS 07/23/16 15:45 Gram Stain - Final Complete Wound Gallbladder 07/23/16 15:45 Wound Culture - Final Complete Wound Gallbladder NO GROWTH IN 72 HRS.--AEROBICALLY OR ... Physical Exam Physical Exam VITAL SIGNS: Reviewed HEENT: Atraumatic, normocephalic. Pupils equal, round, reactive to light and accommodation at 2. [place] mucous membranes. No scleral icterus. NECK: Supple. Central trachea CARDIOVASCULAR: S1-S2. No murmurs, rubs, or gallops. She has no edema in her lower extremities. Her pulses are intact. LUNGS: She does have some diminished breath sounds in her lower lobes. Upper carb[place] are essentially clear. No rhonchi. No wheezing. ABDOMEN: Round. Soft. Some tenderness in the right upper quadrant no rebound no guarding or rigidity positive bowel sounds. Positive cholecystostomy tube with drainage back dark greenish fluid MUSCULOSKELETAL: Moves her extremities with purpose slowly. She does have generalized weakness. Positive tenderness of the right knee area with swelling no discoloration. NEUROLOGIC: She is alert and oriented. Her speech is clear. 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 Tongue is midline. PSYCHIATRIC: Appropriate mood and affect A/P Assessment and Plan (1) Cholecystitis (2) Right flank tenderness (3) cystic duct obstruction (4) Pacemaker (5) CAD (coronary artery disease) (6) Anxiety (7) Right knee pain (8) Osteoarthritis Plan Labs reviewed, monitor LFTs, leukocytosis Slight anemia improved orthopedic consult appreciated for severe right knee pain Status post steroid injection, he still has pain Continue IV analgesics on a when necessary basis Advised the recommended physical therapy to continue anxiety, outside issues, supportive care. Restoril for sleep on as-needed basis Appreciate infectious disease consult for bacteremia Continue antibiotics per ID Appreciate surgical input. Discussed the surgeon on the floor Cholecystostomy tube placed---continue to collection drainage bag -Heart healthy diet -Antibiotics -LFTs tomorrow Appreciate invasive radiology help. Status post cholecystostomy Analgesics when necessary for pain in abdomen and knee joint. IV hydration SCD for DVT prophylaxis PPI for GI prophylaxis Discussed with assistant case manager about DC planning Discussed with patient Discussed with Antwan Peña MD July 26, 2016 10:19
[2016-07-26 12:00] VITALS: BP 133/70; PULSE 85; RESP 18; TEMP 96; O2SAT 99
--- NOTE | 2016-07-26 14:08 | PD.CARD.PN ---
Subjective Subjective Remarks alert in and, deneis chest pain or dyspnea Objective Vital Signs / I&O Vital Signs Date Time Temp Pulse Resp B/P Pulse Ox O2 Delivery O2 Flow Rate FiO2 07/26/16 12:00 96.0 85 18 133/70 99 07/26/16 09:05 Nasal Cannula 2.00 07/26/16 08:00 96.9 89 17 155/83 97 07/26/16 00:00 96.2 86 17 129/68 97 07/25/16 20:33 97 Nasal Cannula 2.00 07/25/16 20:00 96.6 95 17 123/59 97 I/O 07/25/16 07/25/16 07/25/16 07/26/16 07/26/16 07/26/16 07:00 15:00 23:00 07:00 15:00 23:00 Intake Total 386 ml 1121 ml 844 ml 862 ml Output Total 110 ml 775 ml 670 ml 470 ml Balance 276 ml 346 ml 174 ml 392 ml Intake Oral 720 ml 240 ml 240 ml IV Total 386 ml 401 ml 604 ml 622 ml Output Urine Total 675 ml 600 ml 350 ml Drainage Total 110 ml 100 ml 70 ml 120 ml # Bowel Movements 0 Physical Exam GENERAL: SKIN: Warm and dry. HEAD: Normocephalic. EYES: No scleral icterus. No injection or drainage. NECK: Supple, trachea midline. No JVD or lymphadenopathy. CARDIOVASCULAR: Regular rate and rhythm without murmurs, gallops, or rubs. RESPIRATORY: Breath sounds equal bilaterally. No accessory muscle use. GASTROINTESTINAL: Abdomen soft, non-tender, nondistended. MUSCULOSKELETAL: No cyanosis, or edema. BACK: Nontender without obvious deformity. No CVA tenderness. Laboratory Laboratory Tests Test 07/26/16 05:58 White Blood Count 10.9 TH/MM3 Red Blood Count 4.37 MIL/MM3 Hemoglobin 12.2 GM/DL Hematocrit 38.0 % Mean Corpuscular Volume 86.8 FL Mean Corpuscular Hemoglobin 27.9 PG Mean Corpuscular Hemoglobin 32.1 % Concent Red Cell Distribution Width 14.6 % Platelet Count 369 TH/MM3 Mean Platelet Volume 6.8 FL Sodium Level 139 MEQ/L Potassium Level 3.6 MEQ/L Chloride Level 100 MEQ/L Carbon Dioxide Level 31.1 MEQ/L Anion Gap 8 MEQ/L Blood Urea Nitrogen 9 MG/DL Creatinine 0.49 MG/DL Estimat Glomerular Filtration 123 ML/MIN Rate Random Glucose 103 MG/DL Calcium Level 8.8 MG/DL Assessment and Plan Problem List: (1) Pacemaker (2) CAD (coronary artery disease) Assessment and Plan 1.) CAD - aspirin held due to possible surgery, assymptomatic from cv standpoint , restart aspirin when cleared by surgery; rec pre op cath if surg recommended Problem Qualifiers (1) CAD (coronary artery disease): Qualified Code: I25.10 - Coronary artery disease involving [place] coronary artery of [place] heart without angina pectoris Rafi Mcadmas MD July 26, 2016 14:08
[2016-07-26 16:00] VITALS: BP 152/72; PULSE 83; RESP 18; TEMP 97; O2SAT 97
--- NOTE | 2016-07-26 16:49 | HHI.IDPN ---
Note Infectious Disease Note Patient is complaining of severe knee pains. Was better earlier and worsened after she got up and made the bed and sat on the bed a few times today. No chills. No fever. WBC decreased, Had steroid injection into right knee 07/25. PAST MEDICAL HISTORY: 1. Coronary artery disease. 2. Hyperlipidemia. 3. Congestive heart failure. 4. Chronic obstructive pulmonary disease. 5. Hypertension. 6. Osteoarthritis. 7. Thyroid disease. 8. Pacemaker. 9. Hysterectomy. ALLERGIES: 1. TORADOL. 2. TRAMADOL. 3. CODEINE. MEDICATIONS: 1. Vancomycin. OBJECTIVE: Vital Signs Date Time Temp Pulse Resp B/P Pulse Ox O2 Delivery O2 Flow Rate FiO2 07/26/16 16:00 97.0 83 18 152/72 97 07/26/16 12:00 96.0 85 18 133/70 99 07/26/16 09:05 Nasal Cannula 2.00 07/26/16 08:00 96.9 89 17 155/83 97 07/26/16 00:00 96.2 86 17 129/68 97 07/25/16 20:33 97 Nasal Cannula 2.00 07/25/16 20:00 96.6 95 17 123/59 97 07/25/16 07/25/16 07/26/16 14:59 22:59 06:59 Intake Total 1121 ml 844 ml 862 ml Output Total 775 ml 670 ml 470 ml Balance 346 ml 174 ml 392 ml Intake Oral 720 ml 240 ml 240 ml IV Total 401 ml 604 ml 622 ml Output Urine Total 675 ml 600 ml 350 ml Drainage Total 100 ml 70 ml 120 ml # Bowel Movements 0 Laboratory Tests Test 07/26/16 05:58 White Blood Count 10.9 TH/MM3 Red Blood Count 4.37 MIL/MM3 Hemoglobin 12.2 GM/DL Hematocrit 38.0 % Mean Corpuscular Volume 86.8 FL Mean Corpuscular Hemoglobin 27.9 PG Mean Corpuscular Hemoglobin 32.1 % Concent Red Cell Distribution Width 14.6 % Platelet Count 369 TH/MM3 Mean Platelet Volume 6.8 FL Laboratory Tests Test 07/26/16 05:58 Sodium Level 139 MEQ/L Potassium Level 3.6 MEQ/L Chloride Level 100 MEQ/L Carbon Dioxide Level 31.1 MEQ/L Anion Gap 8 MEQ/L Blood Urea Nitrogen 9 MG/DL Creatinine 0.49 MG/DL Estimat Glomerular Filtration 123 ML/MIN Rate Random Glucose 103 MG/DL Calcium Level 8.8 MG/DL Microbiology Date/Time Procedure Status Source Growth 07/23/16 18:10 Aerobic Blood Culture - Preliminary Resulted Blood Peripheral NO GROWTH IN 3 DAYS 07/23/16 18:10 Anaerobic Blood Culture - Preliminary Resulted Blood Peripheral NO GROWTH IN 3 DAYS 07/23/16 18:25 Aerobic Blood Culture - Preliminary Resulted Blood Peripheral NO GROWTH IN 3 DAYS 07/23/16 18:25 Anaerobic Blood Culture - Preliminary Resulted Blood Peripheral NO GROWTH IN 3 DAYS IMAGING: Pelvis X-Ray 07/25/16 0000 Signed Impressions: Service Date/Time: Monday, July 25, 2016 09:19 - CONCLUSION: 1. There is no evidence of acute fracture. Hussein Allen MD Knee X-Ray 07/23/16 0000 Signed Impressions: Service Date/Time: Saturday, July 23, 2016 11:15 - CONCLUSION: 1. Severe osteoarthritis. 2. Joint effusion. Demarcus Hanley MD Percutaneous Cholangiogram 07/21/16 0000 Signed Impressions: Service Date/Time: Thursday, July 21, 2016 16:49 - CONCLUSION: Uncomplicated percutaneous cholecystostomy as above. José Miguel Harris MD Hepatobiliary Scan Nuclear Medicine 07/21/16 0000 Signed Impressions: Service Date/Time: Thursday, July 21, 2016 09:05 - CONCLUSION: Nonvisualization gallbladder one hour and 30 minutes. Carloz Kiser MD FACRADDENDUM: 24 hour delayed imaging demonstrates radiotracer within the bowel. No uptake in the gallbladder. Demarcus Hanley MD Gall Bladder Ultrasound 07/19/16 1655 Signed Impressions: Service Date/Time: Tuesday, July 19, 2016 17:11 - CONCLUSION: Limited exam with trace free fluid. Echogenic liver. No definite gallstones. Carloz Kiser MD FACR Chest X-Ray 07/19/16 0000 Signed Impressions: Service Date/Time: Tuesday, July 19, 2016 16:35 - CONCLUSION: No acute disease. AICD appear stable José Miguel Harris MD PHYSICAL EXAMINATION: GENERAL: No acute distress. She is awake, alert and oriented. HEENT: Head is atraumatic. Extraocular movements grossly intact. Pupils reactive to light. No icterus. Oropharynx: moist mucosa. NECK: The neck is supple. No swelling. No adenopathy. No tenderness. LUNGS: Clear to auscultation. HEART: Regular S1-S2. No murmurs, rubs or gallops. ABDOMEN: Bowel sounds present, soft. Non tender. EXTREMITIES: Less swelling of the right knee. Mild warmth. No erythema. The rest of the extremities have no clubbing, cyanosis or edema. SKIN: No rash. NEUROLOGIC: No gross focal findings. IMPRESSION: 1. Bacteremia due to Staphylococcus epidermidis, unclear etiology. Repeat blood culture is negative. 2. Acalculous cholecystitis. Patient is status post percutaneous cholecystostomy tube placement. Tube in place. 3. Right knee pain. Recent aspiration of fluid from the right knee. Steroid injected into R. knee 07/25. RECOMMENDATIONS: Can discontinue vancomycin tomorrow 07/27. I will sign off now. Romario De La Cruz MD July 26, 2016 16:49
[2016-07-26 20:00] VITALS: BP 127/64; PULSE 83; RESP 17; TEMP 96.4; O2SAT 97
[2016-07-27] VITALS: BP 113/63; PULSE 88; RESP 17; TEMP 95.7; O2SAT 95
[2016-07-27] MEDS: VANCOMYCIN INJ 1,500 MG in SODIUM CHLORID 0.9% 500 ML INJ 500 ML IV SCH (01:13)
[2016-07-27] MEDS: HYDROmorphone HCL PF 1 MG/ML VIAL IV PRN ×2 (01:17→08:51)
[2016-07-27] MEDS: TEMAZEPAM 15 MG CAP PO PRN ×2 (01:20→21:33)
[2016-07-27 07:17] LABS: ALT (GPT) 35 U/L (10-53); AST (GOT) 41 U/L (15-37)
[2016-07-27 07:19] LABS: ALKALINE PHOSPHATASE 140 U/L (45-117); INDIRECT BILIRUBIN 0.1 MG/DL (0.0-0.8); TOTAL BILIRUBIN ADULT 0.2 MG/DL (0.2-1.0)
[2016-07-27 08:00] VITALS: BP 131/80; PULSE 103; RESP 17; TEMP 98; O2SAT 94
--- NOTE | 2016-07-27 08:19 | PD.ORT.PN ---
Subjective Subjective Remarks States the pain is improved some but still continues to have tenderness through range of motion of knee Objective Vitals Vital Signs Date Time Temp Pulse Resp B/P Pulse Ox O2 Delivery O2 Flow Rate FiO2 07/27/16 00:00 95.7 88 17 113/63 95 07/26/16 22:20 18 07/26/16 20:00 97 Nasal Cannula 2.00 07/26/16 20:00 96.4 83 17 127/64 97 07/26/16 16:00 97.0 83 18 152/72 97 07/26/16 12:00 96.0 85 18 133/70 99 07/26/16 09:05 Nasal Cannula 2.00 I/O 07/26/16 07/26/16 07/26/16 07/27/16 07/27/16 07/27/16 07:00 15:00 23:00 07:00 15:00 23:00 Intake Total 862 ml 1186 ml 240 ml 240 ml Output Total 470 ml 750 ml 600 ml 700 ml Balance 392 ml 436 ml -360 ml -460 ml Intake Oral 240 ml 480 ml 240 ml 240 ml IV Total 622 ml 706 ml Output Urine Total 350 ml 625 ml 600 ml 700 ml Drainage Total 120 ml 125 ml # Bowel Movements 0 Result Diagram: 07/26/16 0558 07/26/16 0558 Imaging Last 72 hours Impressions Knee X-Ray 07/23/16 0000 Signed Impressions: Service Date/Time: Saturday, July 23, 2016 11:15 - CONCLUSION: 1. Severe osteoarthritis. 2. Joint effusion. Demarcus Hanley MD Objective Remarks Right lower extremity: Minimal pain with hip range of motion. Significant crepitus through range of motion of the knee with moderate tenderness. Distally intact sensation with good capillary refills. Strong dorsiflexion plantar flexion of foot Assessment & Plan Assessment and Plan Severe osteoarthritis of right knee Understands a steroid injection we'll take typically 24-48 hours to have full effect Physical therapy continue to work with range of motion and weightbearing activities with gait training We'll continue to follow but at this point no other orthopedic intervention planned Saul Martinez Jr. July 27, 2016 08:19
[2016-07-27] MEDS: PARoxetine HCL 20 MG TAB PO SCH (08:51)
[2016-07-27] MEDS: HEPARIN SODIUM - SQ 10,000 UNITS/ML VIAL SQ SCH ×2 (08:51→19:27)
[2016-07-27] MEDS: SODIUM CHLOR 0.45% 1000 ML INJ 1,000 ML IV SCH ×2 (08:52→12:52)
--- NOTE | 2016-07-27 11:37 | HHI.PR ---
Subjective Remarks Pt is lying on bed without any apparent distress watching TV Has no abdominal pain Patient has right knee pain for which she needed more pain medication. She has a physical therapy yesterday No cough No other complaint. breathing better no chest pain no diaphoresis. No palpitations. Review of system for 10 point system otherwise unremarkable Objective Objective Results - Vital Signs Date Time Temp Pulse Resp B/P Pulse Ox O2 Delivery O2 Flow Rate FiO2 07/27/16 08:00 98.0 103 17 131/80 94 07/27/16 00:00 95.7 88 17 113/63 95 07/26/16 22:20 18 07/26/16 20:00 97 Nasal Cannula 2.00 07/26/16 20:00 96.4 83 17 127/64 97 07/26/16 16:00 97.0 83 18 152/72 97 07/26/16 12:00 96.0 85 18 133/70 99 I/O 07/26/16 07/26/16 07/26/16 07/27/16 07/27/16 07/27/16 07:00 15:00 23:00 07:00 15:00 23:00 Intake Total 862 ml 1186 ml 240 ml 240 ml 120 ml Output Total 470 ml 750 ml 600 ml 700 ml Balance 392 ml 436 ml -360 ml -460 ml 120 ml Intake Oral 240 ml 480 ml 240 ml 240 ml 120 ml IV Total 622 ml 706 ml Output Urine Total 350 ml 625 ml 600 ml 700 ml Drainage Total 120 ml 125 ml # Bowel Movements 0 Result Diagram: 07/26/16 0558 07/26/16 0558 Other Results Laboratory Tests Test 07/27/16 05:42 Total Bilirubin 0.2 Direct Bilirubin LESS THAN 0.1 Indirect Bilirubin 0.1 Aspartate Amino Transf 41 (AST/SGOT) Alanine Aminotransferase 35 (ALT/SGPT) Alkaline Phosphatase 140 Total Protein 5.9 Albumin 2.0 Date/Time Procedure Status Source Growth 07/23/16 18:25 Aerobic Blood Culture - Preliminary Resulted Blood Peripheral NO GROWTH IN 4 DAYS 07/23/16 18:25 Anaerobic Blood Culture - Preliminary Resulted Blood Peripheral NO GROWTH IN 4 DAYS 07/23/16 15:45 Gram Stain - Final Complete Wound Gallbladder 07/23/16 15:45 Wound Culture - Final Complete Wound Gallbladder NO GROWTH IN 72 HRS.--AEROBICALLY OR ... Physical Exam Physical Exam VITAL SIGNS: Reviewed HEENT: Atraumatic, normocephalic. Pupils equal, round, reactive to light and accommodation at 2. [place] mucous membranes. No scleral icterus. NECK: Supple. Central trachea CARDIOVASCULAR: S1-S2. No murmurs, rubs, or gallops. She has no edema in her lower extremities. Her pulses are intact. LUNGS: She does have some diminished breath sounds in her lower lobes. Upper carbajal are essentially clear. No rhonchi. No wheezing. ABDOMEN: Round. Soft. Some tenderness in the right upper quadrant no rebound no guarding or rigidity positive bowel sounds. Positive cholecystostomy tube with drainage back dark greenish fluid MUSCULOSKELETAL: Moves her extremities with purpose slowly. She does have generalized weakness. Positive tenderness of the right knee area with swelling no discoloration. NEUROLOGIC: She is alert and oriented. Her speech is clear. 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 Tongue is midline. PSYCHIATRIC: Appropriate mood and affect A/P Assessment and Plan (1) Cholecystitis (2) Right flank tenderness (3) cystic duct obstruction (4) Pacemaker (5) CAD (coronary artery disease) (6) Anxiety (7) Right knee pain (8) Osteoarthritis Plan Labs reviewed, Improving LFTs Improved leukocytosis Slight anemia improved orthopedic consult and input appreciated for severe right knee pain Status post steroid injection, she still has pain improving now with some physical therapy unable to walk Continue analgesics on a when necessary basis we'll switch to by mouth Advised the recommended physical therapy to continue anxiety, better with supportive care. Restoril for sleep on as-needed basis Appreciate infectious disease consult for bacteremia Will be off of antibiotic today per ID. Discussed with ID Appreciate surgical input. Discussed the surgeon on the floor Cholecystostomy tube placed---continue to collection drainage bag . Discussed with invasive radiology need to follow them in 2 weeks -Heart healthy diet -LFTs reviewed, improving Appreciate invasive radiology help. Status post cholecystostomy Analgesics when necessary for pain in abdomen and knee joint. SCD for DVT prophylaxis PPI for GI prophylaxis Discussed with child support case officer about DC planning to rehabilitation Discussed with patient Discussed with Antwan Peña MD July 27, 2016 11:37
[2016-07-27] MEDS ORDERED: REST15CA PO (11:42)
[2016-07-27] MEDS ORDERED: HEPA10003 SQ (11:42)
[2016-07-27] MEDS ORDERED: DILA2TAB2 PO (11:42)
[2016-07-27] MEDS ORDERED: PHARMACY ORDERED LAB ONE (11:45)
[2016-07-27 12:00] VITALS: BP 113/71; PULSE 88; RESP 19; TEMP 97.5; O2SAT 95
--- NOTE | 2016-07-27 12:46 | PD.CARD.PN ---
Subjective Subjective Remarks alert in mild distress Objective Vital Signs / I&O Vital Signs Date Time Temp Pulse Resp B/P Pulse Ox O2 Delivery O2 Flow Rate FiO2 07/27/16 09:10 Room Air 07/27/16 08:00 98.0 103 17 131/80 94 07/27/16 00:00 95.7 88 17 113/63 95 07/26/16 22:20 18 07/26/16 20:00 97 Nasal Cannula 2.00 07/26/16 20:00 96.4 83 17 127/64 97 07/26/16 16:00 97.0 83 18 152/72 97 I/O 07/26/16 07/26/16 07/26/16 07/27/16 07/27/16 07/27/16 07:00 15:00 23:00 07:00 15:00 23:00 Intake Total 862 ml 1186 ml 240 ml 240 ml 120 ml Output Total 470 ml 750 ml 600 ml 700 ml Balance 392 ml 436 ml -360 ml -460 ml 120 ml Intake Oral 240 ml 480 ml 240 ml 240 ml 120 ml IV Total 622 ml 706 ml Output Urine Total 350 ml 625 ml 600 ml 700 ml Drainage Total 120 ml 125 ml # Bowel Movements 0 Physical Exam GENERAL: SKIN: Warm and dry. HEAD: Normocephalic. EYES: No scleral icterus. No injection or drainage. NECK: Supple, trachea midline. No JVD or lymphadenopathy. CARDIOVASCULAR: Regular rate and rhythm without murmurs, gallops, or rubs. RESPIRATORY: Breath sounds equal bilaterally. No accessory muscle use. GASTROINTESTINAL: Abdomen soft, non-tender, nondistended. MUSCULOSKELETAL: No cyanosis, or edema. BACK: Nontender without obvious deformity. No CVA tenderness. Laboratory Laboratory Tests Test 07/27/16 05:42 Total Bilirubin 0.2 MG/DL Direct Bilirubin LESS THAN 0.1 MG/DL Indirect Bilirubin 0.1 MG/DL Aspartate Amino Transf 41 U/L (AST/SGOT) Alanine Aminotransferase 35 U/L (ALT/SGPT) Alkaline Phosphatase 140 U/L Total Protein 5.9 GM/DL Albumin 2.0 GM/DL Assessment and Plan Problem List: (1) Pacemaker (2) CAD (coronary artery disease) Assessment and Plan 1.) CAD - aspirin held due to possible surgery, assymptomatic from cv standpoint , restart aspirin when cleared by surgery; rec pre op cath if surg recommended Problem Qualifiers (1) CAD (coronary artery disease): Qualified Code: I25.10 - Coronary artery disease involving [place] coronary artery of [place] heart without angina pectoris Rafi Mcadams MD July 27, 2016 12:46
[2016-07-27] MEDS: HYDROmorphone HCL 2 MG TAB PO PRN ×3 (12:51→21:33)
[2016-07-27 16:00] VITALS: BP 140/78; PULSE 102; RESP 19; TEMP 97.7; O2SAT 96
[2016-07-27 20:00] VITALS: BP 140/65; PULSE 90; RESP 20; TEMP 97.8; O2SAT 97
[2016-07-28] VITALS: BP 131/71; PULSE 94; RESP 20; TEMP 98; O2SAT 96
[2016-07-28] MEDS: HYDROmorphone HCL 2 MG TAB PO PRN ×4 (02:02→14:25)
[2016-07-28] MEDS: SODIUM CHLOR 0.45% 1000 ML INJ 1,000 ML IV SCH (02:03)
[2016-07-28 08:00] VITALS: BP 142/72; PULSE 86; RESP 17; TEMP 96.4; O2SAT 96
[2016-07-28] MEDS: PARoxetine HCL 20 MG TAB PO SCH (08:04)
[2016-07-28] MEDS: HEPARIN SODIUM - SQ 10,000 UNITS/ML VIAL SQ SCH (08:07)
--- NOTE | 2016-07-28 10:19 | PD.CARD.PN ---
Subjective Subjective Remarks alert in nad Objective Vital Signs / I&O Vital Signs Date Time Temp Pulse Resp B/P Pulse Ox O2 Delivery O2 Flow Rate FiO2 07/28/16 08:00 96.4 86 17 142/72 96 07/28/16 07:15 96 Nasal Cannula 2.00 07/28/16 00:00 98.0 94 20 131/71 96 07/27/16 20:00 Room Air 07/27/16 20:00 97.8 90 20 140/65 97 07/27/16 16:00 97.7 102 19 140/78 96 07/27/16 12:00 97.5 88 19 113/71 95 I/O 07/27/16 07/27/16 07/27/16 07/28/16 07/28/16 07/28/16 07:00 15:00 23:00 07:00 15:00 23:00 Intake Total 240 ml 2264 ml 480 ml 2912 ml Output Total 700 ml 875 ml 500 ml 1480 ml Balance -460 ml 1389 ml -20 ml 1432 ml Intake Oral 240 ml 1080 ml 480 ml 240 ml IV Total 1184 ml 2672 ml Output Urine Total 700 ml 400 ml 500 ml 1300 ml Drainage Total 475 ml 180 ml # Bowel Movements 5 1 0 Physical Exam GENERAL: SKIN: Warm and dry. HEAD: Normocephalic. EYES: No scleral icterus. No injection or drainage. NECK: Supple, trachea midline. No JVD or lymphadenopathy. CARDIOVASCULAR: Regular rate and rhythm without murmurs, gallops, or rubs. RESPIRATORY: Breath sounds equal bilaterally. No accessory muscle use. GASTROINTESTINAL: Abdomen soft, non-tender, nondistended. MUSCULOSKELETAL: No cyanosis, or edema. BACK: Nontender without obvious deformity. No CVA tenderness. Laboratory Laboratory Tests Test 07/28/16 05:31 Creatinine 0.52 MG/DL Estimat Glomerular Filtration 115 ML/MIN Rate Assessment and Plan Problem List: (1) Pacemaker (2) CAD (coronary artery disease) Assessment and Plan 1.) CAD - aspirin held due to possible surgery, assymptomatic from cv standpoint , restart aspirin when cleared by surgery; rec pre op cath if surg recommended Problem Qualifiers (1) CAD (coronary artery disease): Qualified Code: I25.10 - Coronary artery disease involving [place] coronary artery of [place] heart without angina pectoris Rafi Mcadams MD July 28, 2016 10:18
[2016-07-28] MEDS ORDERED: ASPI81CH CHEW (10:58)
--- NOTE | 2016-07-28 10:58 | HHI.DCPOC ---
Discharge Care Plan Diagnosis: (1) Cholecystitis Your Health Problems Are: Appetite Changes Goals to Promote Your Health * To prevent worsening of your condition and complications * To maintain your health at the optimal level Directions to Meet Your Goals Take your medications as prescribed Follow your dietary instruction Follow activity as directed Keep your appointments as scheduled Take your immunizations and boosters as scheduled If your symptoms worsen call your PCP, if no PCP go to Urgent Care Center or Emergency Room Smoking is Dangerous to Your Health. Avoid second hand smoke Call the 24-hour hour crisis hotline for domestic abuse at [facility]. [facility] July 28, 2016 10:58
--- NOTE | 2016-07-28 11:08 | HHI.PR ---
Subjective Subjective Remarks right upper quadrant pain some nausea today appetite fair knee pain better no fever no cp no sob Review of Systems Constitutional Constitutional Remarks 12 point ROS completed, negative except as noted above Vitals/Results Intake & Output 07/27/16 07/27/16 07/28/16 15:00 23:00 07:00 Intake Total 2264 ml 480 ml 2912 ml Output Total 875 ml 500 ml 1480 ml Balance 1389 ml -20 ml 1432 ml Intake Oral 1080 ml 480 ml 240 ml IV Total 1184 ml 2672 ml Output Urine Total 400 ml 500 ml 1300 ml Drainage Total 475 ml 180 ml # Bowel Movements 5 1 0 Vital Signs Vital Signs Date Time Temp Pulse Resp B/P Pulse Ox O2 Delivery O2 Flow Rate FiO2 07/28/16 08:00 96.4 86 17 142/72 96 07/28/16 07:15 96 Nasal Cannula 2.00 07/28/16 00:00 98.0 94 20 131/71 96 07/27/16 20:00 Room Air 07/27/16 20:00 97.8 90 20 140/65 97 07/27/16 16:00 97.7 102 19 140/78 96 07/27/16 12:00 97.5 88 19 113/71 95 CBC/BMP: 07/26/16 0558 07/28/16 0531 Lab Results Laboratory Tests Test 07/28/16 05:31 Creatinine 0.52 MG/DL Estimat Glomerular Filtration 115 ML/MIN Rate Physical Exam General General Appearance: Well Developed, No Acute Distress, Comfortable, Obese Eyes Eye Exam: Pupils Equal, Pupils Reactive Ears & Nose Ears & Nose Exam: Nasal Mucosa [place] Throat Throat Exam: Oral Mucosa [place] & Moist Neck Neck Exam: Neck Supple, Trachea Midline Pulmonary Resp Exam: Clear Bilaterally, No Distress Cardiology CV Exam: Regular, Good Perfusion Gastrointestinal/Abdomen GI Exam: Soft, Bowel Sounds Present, Non-Distended Genitourinary Remarks RUQ cholecystostomy drain Musculoskeletal MS Exam: Joints Intact Integumentary Skin Exam: Warm, Dry Extremeties Extremities Exam: No Edema, Pedal Pulses Palpable Neurologic Neuro Exam: Alert, Awake, Oriented, Speech Clear, Moving All Extremities, No Focal Deficits Psychiatric Psych Exam: Appropriate Responses VTE Prophylaxis VTE Prophylaxis Device: SCDs VTE Prophylaxis Meds: Heparin Assessment/Plan Problem List: (1) Cholecystitis (2) Right flank tenderness (3) cystic duct obstruction (4) Pacemaker (5) CAD (coronary artery disease) (6) Anxiety (7) Right knee pain (8) Osteoarthritis Assessment/Plan abd. pain with leukocytosis, elevated LFTs HIDA scan 07/21, + cholecystitis Dr. Mancuso's input appreciated evaluated by cardiology, high risk for surgery IR consult S/P placement of cholecystostomy tube 07/21 off abx, ID input appreciated. BC x 2, + GPC, staph epi, ? contaminant WBC trending down, no fever continue with pain management cleared for dc, f/u Dr. Mancuso in 2-3 weeks. Will need cholangiogram to determine tube removal. PT eval and tx right knee with severe OA xray done S/P steroid injection per ortho 07/23 some improving continue with PT pain management. SCD/Heparin for DVT prophylaxis Resume aspirin Labs reviewed, LFTs trending down improving, stable for discharge F/U Dr. Mancuso 2-3 weeks F/U Ortho F/U PCP Diet-heart healthy Activity- as tolerated. D/W RN D/W Dr. Robledo D/W pt This patient was seen by myself and Dr. Robledo, this note is written on his behalf. Discharge Minutes: 45 Problem Qualifiers (1) CAD (coronary artery disease): Qualified Code: I25.10 - Coronary artery disease involving [place] coronary artery of [place] heart without angina pectoris (2) Right knee pain: Qualified Code: M25.561 - Chronic pain of right knee (3) Osteoarthritis: Qualified Code: M19.90 - Osteoarthritis, unspecified osteoarthritis type, unspecified site [facility] July 28, 2016 11:08
--- NOTE | 2016-07-28 11:13 | HHI.DS ---
Discharge Summary Admission Date July 19, 2016 at 17:06 Discharge Date: July 28, 2016 Admitting Diagnosis SIRS, elevated LFTS, severe OA of the left knee (1) Cholecystitis (2) Right flank tenderness (3) Abnormal biliary HIDA scan (4) Right knee pain (5) Osteoarthritis (6) Anxiety (7) cystic duct obstruction (8) Pacemaker (9) CAD (coronary artery disease) CBC/BMP: 07/26/16 0558 07/28/16 0531 Significant Findings Laboratory Tests Test 07/26/16 07/27/16 05:58 05:42 Mean Platelet Volume 6.8 FL (7.0-11.0) Creatinine 0.49 MG/DL (0.50-1.00) Aspartate Amino Transf 41 U/L (15-37) (AST/SGOT) Alkaline Phosphatase 140 U/L (45-117) Total Protein 5.9 GM/DL (6.4-8.2) Albumin 2.0 GM/DL (3.4-5.0) Pt Condition on Discharge: Stable Discharge Disposition: Discharge to SNF Discharge Instructions DIET: Follow Instructions for: Heart Healthy Diet Activities you can perform: Weight Bearing as [facility] Follow up Referrals: Appointment for Follow Up - 2 Weeks with invasive radiology in [facility] For removal off cholecystostomy tube Orthopedics - 08/10/16 with Erik Miller MD PCP Follow-up - 2-3 Days Surgical - 2 Weeks with Sherif Mancuso MD New Medications: Aspirin (Aspirin) 81 Mg Chew 81 MG CHEW DAILY Stroke Prevention #30 Ref 0 TAB Heparin Sodium (Porcine) (Heparin Sodium) 10,000 Unit/Ml Inj 5000 UNITS SQ Q12H DVT prophylaxis #20 INJECTION Hydromorphone (Dilaudid) 2 Mg Tab 1 MG PO Q4H PRN PAIN SCALE 6 TO 10 #30 TAB Temazepam (Restoril) 15 Mg Cap 15 MG PO HS PRN INSOMNIA #10 CAP Continued Medications: Paroxetine (Paxil) 10 Mg Tab 10 MG PO DAILY Ref 0 TAB Discontinued Medications: Pravastatin (Pravastatin) 10 Mg Tab 10 MG PO DAILY Cholesterol Management Ref 0 TAB [facility] July 28, 2016 11:13
[2016-07-28 12:00] VITALS: BP_SYST 105; BP_SYST 129; BP_DIAS 61; BP_DIAS 69; PULSE 105; PULSE 76; RESP 16; TEMP 95.5; TEMP 97.6; O2SAT 90; O2SAT 97
[2016-07-28] MEDS: ONDANSETRON HCL 4 MG/2 ML VIAL IVP PRN (12:25)
--- NOTE | 2016-07-28 19:42 | HHI.DS ---
Discharge Summary Admission Date July 19, 2016 at 17:06 Discharge Date: July 28, 2016 Admitting Diagnosis SIRS, elevated LFTS, severe OA of the left knee (1) Cholecystitis (2) Right flank tenderness (3) Abnormal biliary HIDA scan (4) Right knee pain (5) Osteoarthritis (6) Anxiety (7) cystic duct obstruction (8) Pacemaker (9) CAD (coronary artery disease) Procedures S/P placement of cholecystostomy tube 07/21 CBC/BMP: 07/26/16 0558 07/28/16 0531 Significant Findings Laboratory Tests Test 07/26/16 07/27/16 05:58 05:42 Mean Platelet Volume 6.8 FL (7.0-11.0) Creatinine 0.49 MG/DL (0.50-1.00) Aspartate Amino Transf 41 U/L (15-37) (AST/SGOT) Alkaline Phosphatase 140 U/L (45-117) Total Protein 5.9 GM/DL (6.4-8.2) Albumin 2.0 GM/DL (3.4-5.0) Imaging Last Impressions Pelvis X-Ray 07/25/16 0000 Signed Impressions: Service Date/Time: Monday, July 25, 2016 09:19 - CONCLUSION: 1. There is no evidence of acute fracture. Hussein Allen MD Knee X-Ray 07/23/16 0000 Signed Impressions: Service Date/Time: Saturday, July 23, 2016 11:15 - CONCLUSION: 1. Severe osteoarthritis. 2. Joint effusion. Demarcus Hanley MD Percutaneous Cholangiogram 07/21/16 0000 Signed Impressions: Service Date/Time: Thursday, July 21, 2016 16:49 - CONCLUSION: Uncomplicated percutaneous cholecystostomy as above. José Miguel Harris MD Hepatobiliary Scan Nuclear Medicine 07/21/16 0000 Signed Impressions: Service Date/Time: Thursday, July 21, 2016 09:05 - CONCLUSION: Nonvisualization gallbladder one hour and 30 minutes. Carloz Kiser MD FACRADDENDUM: 24 hour delayed imaging demonstrates radiotracer within the bowel. No uptake in the gallbladder. Demarcus Hanley MD Gall Bladder Ultrasound 07/19/16 1655 Signed Impressions: Service Date/Time: Tuesday, July 19, 2016 17:11 - CONCLUSION: Limited exam with trace free fluid. Echogenic liver. No definite gallstones. Carloz Kiser MD FACR Chest X-Ray 07/19/16 0000 Signed Impressions: Service Date/Time: Tuesday, July 19, 2016 16:35 - CONCLUSION: No acute disease. AICD appear stable José Miguel Harris MD Hospital Course This is a pleasant 75-year-old obese female with multiple medical comorbidities. She has had a long history of right knee pain and was recently in the [facility] with a possible infection in her right knee. According to the records the patient had her knee drained and there was no infection noted. She does have some mild edema noted around the knee cap, but the knee has no erythema but is sore to move. The patient has also had an onset of abdominal pain with nausea and vomiting for the past 48 hours. She states that she did have fever around 101. She has had some cough with some productive yellow sputum, a decreased appetite and has also been constipated. The patient states that she did have a good bowel movement within the past 24 hours and is now feeling somewhat better. She has no pain on palpation to the abdomen. She just describes it as a general ache. Pt was tachycardic heart rate around 110. Temperature is 97.4. According to the record, the patient was admitted to a rehabilitation facility for debility but states that the workers had a bad attitude therefore, she stayed for one day and signed out against medical advice. The patient has not been ambulating in quite some time. She does use a wheelchair or a walker and push herself around the house. The patient is complaining of generalized aches and low back pain. Evaluated in the ED and found with: LABORATORY DATA Diagnostic data, white blood cell count is 12.7, RBC 4.39, hemoglobin 12.5, hematocrit 38, platelet count 373. Neutrophil percentage auto 75.5, monocyte 8.5. Sodium 133, potassium 3.6, chloride 94, carbon dioxide 30.5, anion gap 9, BUN 13, creatinine 0.65. Random glucose 128. Lactic acid 10. Calcium 9.9. AST 60, ALT 59, alkaline phosphatase 306. C reactive protein 30.3. Total protein 8. Albumin 2.3. Urine is dark yellow, clear. PH is 6.0, specific gravity 1.021, 30 protein, large amount of occult blood. Nitrites are negative. Small amount of bilirubin. Urobilinogen si 4. Leukocyte esterase is negative. Negative glucose or ketones or leukocyte esterase. Culture is not indicated. IMAGING Imaging studies show a chest x-ray to have no acute disease. AICD appears stable. Knee x-ray severe osteoarthritis with small effusion without fracture. Ultrasound of the gallbladder limited examination with trace of free fluid, echogenic liver. No definite gallstones. Pt. was admitted for the following: (1) Abdominal pain, found with Cholecystitis (2) Right flank tenderness (3) cystic duct obstruction (4) Pacemaker (5) CAD (coronary artery disease) (6) Anxiety (7) Right knee pain (8) Osteoarthritis During the course of the hospitalization, the following took place; Patient was admitted to the hospital, put on IV fluids. Surgery was consulted for evaluation Further diagnostic workup was recommended. Had HIDA scan 07/21, + cholecystitis Dr. Mancuso's input appreciated. He recommended cardiology consultation for preoperative evaluation Dr. Mcadams was consulted, consider patient medium to high risk for surgery. He recommended aspirin and statins, patient able to take. IR consulted, S/P placement of cholecystostomy tube 07/21 Patient was treated initially with antibiotics, was found with BC x 2, + GPC, staph epi, ? contaminant ID was consulted for bacteremia. Patient was monitored, WBC was evaluated daily. Patient had no fever ID recommended to stop antibiotics. Patient was put on appropriate pain management Patient's laboratory workup improve, pain lessened. Tolerated diet well. cleared for dc, and instructed to f/u Dr. Mancuso in 2-3 weeks. Will need cholangiogram to determine tube removal. Patient continued to complain of right knee pain, x-ray was done. Showed severe OA Orthopedic consultation was obtained. Steroid injection recommended. S/P steroid injection per ortho 07/23 some improvement with range of motion. Physical therapy was consulted and assisted with patient mobility and out of bed. Continued with pain management Patient was continued on some home medications Laboratory workup was monitored daily Was put on SCD/Heparin for DVT prophylaxis Patient was resumed on aspirin Patient's condition improved after placement of cholecystostomy tube. Labs reviewed, LFTs trending down Tolerated diet, no nausea, no vomiting. Patient stable for discharge CM consulted for SNF placement. Patient was agreeable with going back to rehabilitation. Pt discharged to SNF in stable condition. Instructed to: F/U Dr. Mancuso 2-3 weeks F/U Ortho F/U PCP Diet-heart healthy Activity- as tolerated. Pt Condition on Discharge: Stable Discharge Disposition: Discharge to SNF Discharge Instructions DIET: Follow Instructions for: Heart Healthy Diet Activities you can perform: Weight Bearing as [facility]manuel Follow up Referrals: Appointment for Follow Up - 2 Weeks with invasive radiology in [facility] For removal off cholecystostomy tube Orthopedics - 08/10/16 with Erik Miller MD PCP Follow-up - 2-3 Days Surgical - 2 Weeks with Sherif Mancuso MD New Medications: Aspirin (Aspirin) 81 Mg Chew 81 MG CHEW DAILY Stroke Prevention #30 Ref 0 TAB Heparin Sodium (Porcine) (Heparin Sodium) 10,000 Unit/Ml Inj 5000 UNITS SQ Q12H DVT prophylaxis #20 INJECTION Hydromorphone (Dilaudid) 2 Mg Tab 1 MG PO Q4H PRN PAIN SCALE 6 TO 10 #30 TAB Temazepam (Restoril) 15 Mg Cap 15 MG PO HS PRN INSOMNIA #10 CAP Continued Medications: Paroxetine (Paxil) 10 Mg Tab 10 MG PO DAILY Ref 0 TAB Discontinued Medications: Pravastatin (Pravastatin) 10 Mg Tab 10 MG PO DAILY Cholesterol Management Ref 0 TAB [facility] July 28, 2016 19:42
== END 2016-07-28 14:36 | DRG 445 ==
LOC: NEPC 13:34 → NEDH 17:06 → N07B 20:47
PROVIDERS: ADMIT Specialist; ATTEND Specialist
PROC: 0F9430Z Drainage of Gallbladder with Drainage Device, Percutaneous Approach (ICD-10-PCS; principal; 2016-07-21)
PROC: 3E0U33Z Introduction of Anti-inflammatory into Joints, Percutaneous Approach (ICD-10-PCS; 2016-07-25)
DX: K81.0 Acute cholecystitis (principal); E87.1 Hypo-osmolality and hyponatremia; I50.9 Heart failure, unspecified; R78.81 Bacteremia; B95.7 Other staphylococcus as the cause of diseases classified elsewhere; J44.9 Chronic obstructive pulmonary disease, unspecified; M17.11 Unilateral primary osteoarthritis, right knee; E87.6 Hypokalemia; E66.9 Obesity, unspecified; Z68.30 Body mass index [BMI] 30.0-30.9, adult; F41.9 Anxiety disorder, unspecified; I25.10 Atherosclerotic heart disease of native coronary artery without angina pectoris; E78.5 Hyperlipidemia, unspecified; I10 Essential (primary) hypertension; R73.9 Hyperglycemia, unspecified; R74.8 Abnormal levels of other serum enzymes; D64.9 Anemia, unspecified; E88.09 Other disorders of plasma-protein metabolism, not elsewhere classified; Z95.810 Presence of automatic (implantable) cardiac defibrillator
CPT/HCPCS: 47490; 51702; 71010; 72170; 73560; 76705; 76937; 78226; 80048; 80053; 80076; 80202; 81001; 82565; 83605; 85025; 85027; 85610; 85652; 85730; 86140; 86403; 87040; 87070; 87077; 87186; 87205; 96361; 96374; 96375; 99152; 99153; A9537; C1729; C1769; J0295; J1170; J1644; J2250; J2270; J2405; J2543; J3010; J3370; J7030; J7040; J7050; Q9967